=== PATIENT | male | born 1935 | race Caucasian/White ===

== ENCOUNTER 2017-07-14 14:47 | Inpatient (IN) ==
[2017-07-14] MEDS ORDERED: Piperacillin/Tazobactam 3.375 GM in Water for inj. (sterile) 20 ML IVP ONE (15:02)
[2017-07-14] MEDS ORDERED: methylPREDNISolone 125 MG/2 ML VIAL IVP ONE (15:02)
[2017-07-14] MEDS ORDERED: Ipratropium/Albuterol Neb 3 ML IH ONE (15:02)
[2017-07-14] MEDS ORDERED: Vancomycin 1,000 MG VIAL IVPB ONE (15:02)
--- NOTE | 2017-07-14 15:07 | Emergency Department Note ---
Disposition Clinical Impression: Acute exacerbation of chronic obstructive airways disease Disposition: Admitted As Inpatient Condition: Fair Referrals: Neftali Ortez MD [Primary Care Provider] - Forms: ED Satisfaction Letter Time of Disposition: 16:41 SOB HPI - General Chief Complaint: ED Shortness of Breath/Dyspnea Stated Complaint: [place] Time Seen by Provider: 07/14/17 14:58 Source: patient, family Limitations: no limitations Nursing Notes Reviewed: Yes Vital Signs Reviewed: Yes - History of Present Illness 81-year-old with a history COPD comes in with increasing shortness of breath and cough. Patient was seen here we can go diagnosed with pneumonia treated antibiotics ended yesterday and symptoms have come back worsening symptoms. Pt Subjective Complaint: shortness of breath, cough Onset (ago): [employer] Context: recent illness Severity: moderate Consistency/Duration: constant Improves with: nothing Worsens with: exertion Known history of: COPD Associated symptoms: Reports: cough Treatment prior to arrival: other (Anabiotic's) Cough present: Yes Cough Description: Involuntary Cough Frequency: Intermittent Sputum Amount: None - Related Data Home Medications Medication Instructions Recorded Confirmed Ipratropium/Albuterol Neb [Duoneb] 3 ml IH Q4HR PRN 07/14/17 07/14/17 NIFEdipine [Nifedipine ER] 60 mg PO DAILY 07/14/17 07/14/17 Allergies Allergy/AdvReac Type Severity Reaction Status Date / Time No Known Allergies Allergy Verified 07/14/17 14:52 All systems ED: reviewed and negative except as stated. Constitutional: Denies: fever, chills, weakness, weight change Eyes: Denies: eye pain, eye discharge, vision change ENT ED: Denies: ear pain, throat pain, dental pain, hearing loss, epistaxis, congestion, dysphagia Cardiovascular: Denies: chest pain, palpitations, dyspnea on exertion, edema, syncope Respiratory: Reports: cough, dyspnea, wheezes. Denies: hemoptysis, stridor Gastrointestinal: Denies: abdominal pain, nausea, vomiting, diarrhea, constipation, hematemesis, melena, hematochezia Genitourinary: Denies: urgency, dysuria, frequency, hematuria Musculoskeletal: Denies: back pain, neck pain, arthralgia, myalgia Integumentary: Denies: rash, abrasion, lesions Neurological: Denies: headache, weakness, numbness, paresthesias, confusion, abnormal gait, vertigo Psychiatric: Denies: anxiety, depression, suicidal thoughts, homicidal thoughts , auditory hallucinations, visual hallucinations Endocrine: Denies: fatigue Hematological/Lymphatic: Denies: easy bleeding, easy bruising Allergic/Immunologic: Denies: facial swelling, urticaria Past Medical History - Past Medical History Medical history: Reports: COPD, DVT, hypertension Surgical history: Reports: non-contributory Psychiatric history: Reports: no psych history - Social History Smoking Status: Current every day smoker Smokeless Tobacco Status: No Alcohol use: Reports: none Drug use: Reports: none Physical Exam - General Limitations: no limitations General appearance: alert, anxious - Head Head exam: atraumatic, normocephalic, normal inspection - Eye Eye exam: Present: normal appearance, PERRL, EOMI - ENT ENT exam: normal exam, normal oropharynx, mucous membranes moist - Neck Neck exam: Present: normal inspection, full ROM, trachea midline - Chest Chest inspection: Present: normal inspection, symmetric chest wall rise - Respiratory Respiratory exam: Present: normal lung sounds bilaterally - Cardiovascular Cardiovascular exam: Present: regular rate, normal rhythm, normal heart sounds - Abdominal Exam Abdominal exam: Present: soft, Non-Tender. Absent: tenderness, distention, guarding, rebound, rigidity - Extremities Exam Extremities exam: Present: normal inspection, full ROM. Absent: tenderness, pedal edema - Expanded Lower Extremity Exam Neurovascular/Tendon exam: Absent: motor deficit, sensory deficit, tendon deficit Gait: observed and normal - Back Exam Back exam: Present: normal inspection, full ROM. Absent: tenderness - Neurological Exam Neurological exam: Present: alert, oriented X3 - Psychiatric Psychiatric exam: Present: normal affect, normal mood - Skin Skin exam: Present: warm, dry, intact, normal color Course - Reevaluation(s) Reevaluation #1: 81-year-old who comes in with increasing shortness of breath with a history of COPD. Patient was diagnosed with pneumonia in the last couple weeks and thought it was getting worse. Workup here included a chest x-ray that was negative for an infiltrate. Patient appears to have an exacerbation COPD will admit for further evaluation and treatment. Time: 17:06 - Consultations Consultation #1: Discussed with Dr. Naqvi, admit Time: 17:03 Vital Signs Temperature 97.4 F L 07/14/17 14:53 Pulse Rate 87 07/14/17 14:53 Respiratory Rate 24 07/14/17 14:53 Blood Pressure 173/100 07/14/17 14:53 O2 Sat by Pulse Oximetry 93 07/14/17 14:53 Temperature 97.4 F L 07/14/17 14:53 Pulse Rate 90 07/14/17 16:04 Respiratory Rate 16 07/14/17 16:04 Blood Pressure 150/94 07/14/17 16:04 O2 Sat by Pulse Oximetry 92 07/14/17 16:04 Oxygen Delivery Oxygen Delivery Room Air Shortness of Breath/Dyspnea - Lab Data Lab results reviewed: Yes I reviewed the patient's lab results. Result diagrams: 07/14/17 15:10 07/14/17 15:10 Lab Results 07/14/17 07/14/17 07/14/17 Range/Units 15:10 15:10 15:10 WBC 6.9 (4.3-11.1) K/mcL RBC 6.57 H (4.19-5.50) M/mcL Hgb 20.2 H (12.9-16.9) g/dL Hct 62.8 H (37.5-50.1) % MCV 95.6 (83.0-100.0) fL MCH 30.7 (28.0-33.3) pg MCHC 32.2 (31.6-35.5) g/dL RDW 13.4 (11.5-14.5) % Plt Count 122 L (140-400) K/mcL MPV 11.5 (9.4-12.4) fL Immature Gran % 0.4 (0-4) % Seg Neutrophils % 75.1 % Lymphocytes % 11.7 % Monocytes % 12.4 % Eosinophils % 0.1 % Basophils % 0.3 % Neutrophils # 5.2 (1.6-8.9) K/mcL Lymphocytes # 0.8 (0.6-4.6) K/mcL Monocytes # 0.9 (0.0-1.3) K/mcL Eosinophils # 0.0 (0.0-0.6) K/mcL Basophils # 0.0 (0.0-0.2) K/mcL Sodium 132 L (136-145) mEq/L Potassium 4.1 (3.5-5.1) mEq/L Chloride 92 L (98-107) mEq/L Carbon Dioxide 31 H (23-29) mEq/L BUN 32 H (8-23) mg/dL Creatinine 1.24 (0.70-1.30) mg/dL Est GFR ( Amer) > 60 (> 60) Est GFR (Non-Af Amer) 56 L (> 60) BUN/Creatinine Ratio 26 (6-26) Glucose 100 (70-105) mg/dL Calculated Osmolality 281 (280-300) Calcium 8.9 (8.6-10.3) mg/dL Troponin I 0.03 (< 0.04) ng/mL B-Natriuretic Peptide (Less than 100) pg/mL 07/14/17 Range/Units 15:10 WBC (4.3-11.1) K/mcL RBC (4.19-5.50) M/mcL Hgb (12.9-16.9) g/dL Hct (37.5-50.1) % MCV (83.0-100.0) fL MCH (28.0-33.3) pg MCHC (31.6-35.5) g/dL RDW (11.5-14.5) % Plt Count (140-400) K/mcL MPV (9.4-12.4) fL Immature Gran % (0-4) % Seg Neutrophils % % Lymphocytes % % Monocytes % % Eosinophils % % Basophils % % Neutrophils # (1.6-8.9) K/mcL Lymphocytes # (0.6-4.6) K/mcL Monocytes # (0.0-1.3) K/mcL Eosinophils # (0.0-0.6) K/mcL Basophils # (0.0-0.2) K/mcL Sodium (136-145) mEq/L Potassium (3.5-5.1) mEq/L Chloride (98-107) mEq/L Carbon Dioxide (23-29) mEq/L BUN (8-23) mg/dL Creatinine (0.70-1.30) mg/dL Est GFR ( Amer) (> 60) Est GFR (Non-Af Amer) (> 60) BUN/Creatinine Ratio (6-26) Glucose (70-105) mg/dL Calculated Osmolality (280-300) Calcium (8.6-10.3) mg/dL Troponin I (< 0.04) ng/mL B-Natriuretic Peptide 118 H (Less than 100) pg/mL - Radiology Data Radiology results reviewed: Yes I reviewed the patient's radiology results. Chest X-Ray 07/14/17 15:03 IMPRESSION: 1. No acute cardiopulmonary disease. 2. Thoracic aortic aneurysm, which appears stable from prior imaging exams. D/ / Sreedhar Butler MD / Sreedhar Butler MD Interpreting Provider: Sreedhar Butler MD - EKG Data EKG attestation: Yes I reviewed and interpreted this EKG. EKG shows normal: Reports: sinus rhythm Rate: Reports: normal Rhythm: Reports: NSR, PAC's Interpretation: Reports: no acute changes
[2017-07-14] MEDS ORDERED: 0.9 % Sodium Chloride 250 ML ONE (15:19)
[2017-07-14 15:58] LABS: Basophils % 0.3 %; Eosinophils % 0.1 %; Hemoglobin 20.2 g/dL (12.9-16.9); Immature Granulocytes % 0.4 % (0-4); Lymphocytes # 0.8 K/mcL (0.6-4.6); Lymphocytes % 11.7 %; Mean Corpuscular HGB Conc 32.2 g/dL (31.6-35.5); Mean Corpuscular Hemoglobin 30.7 pg (28.0-33.3); Mean Corpuscular Volume 95.6 fL (83.0-100.0); Mean Platelet Volume 11.5 fL (9.4-12.4); Monocytes # 0.9 K/mcL (0.0-1.3); Monocytes % 12.4 %; Neutrophils # 5.2 K/mcL (1.6-8.9); Platelet Count 122 K/mcL (140-400); Red Blood Count 6.57 M/mcL (4.19-5.50); Red Cell Distribution Width 13.4 % (11.5-14.5); Segmented Neutrophils % 75.1 %
[2017-07-14 16:01] LABS: Hematocrit 62.8 % (37.5-50.1)
[2017-07-14 16:12] LABS: BUN/Creatinine Ratio 26 (6-26); Blood Urea Nitrogen 32 mg/dL (8-23); Calcium 8.9 mg/dL (8.6-10.3); Carbon Dioxide 31 mEq/L (23-29); Chloride 92 mEq/L (98-107); Glucose 100 mg/dL (70-105); Osmolality,Calculated 281 (280-300); Potassium 4.1 mEq/L (3.5-5.1); Sodium 132 mEq/L (136-145); eGFR For African Americans > 60 (> 60); eGFR For Non-African Americans 56 (> 60)
--- NOTE | 2017-07-14 17:29 | Internal Med History&Physical ---
Date of Encounter: 07/14/17 Time of Encounter: 17:26 Assessment and Plan (1) HTN (hypertension) Current visit: Yes Status: Chronic Chronic and uncontrolled will adjust home medication Qualifiers: Hypertension type: essential hypertension Qualified Code(s): I10 - Essential (primary) hypertension (2) Smoking Current visit: Yes Status: Chronic Chronic (3) Bronchitis Current visit: Yes Status: Acute Patient continued to smoke and cover mild thick sputum despite antibiotic we will place on IV Levaquin (4) Acute exacerbation of chronic obstructive airways disease Current visit: Yes Status: Acute Acute on chronic COPD exacerbation patient moves have poorly very likely has severe COPD does not follow with the pulmonology will place on IV steroids DuraNeb and Levaquin Internal Medicine - H&P: HPI Chief complaint: sob and productive cough Admitted From: Emergency Dept Plans for Post Hospital Care: Home History of present illness: Mr. Mcginnis is a 81 year old male Patient with history of COPD, DVT was on Coumadin that was stopped due to hemoptysis in the past, hypertension, smoking history and continues to smoke patient was seen in the emergency room about a week ago with Productive cough and shortness of breath chest x-ray showed pneumonia he was treated outpatient with antibiotic. The patient finished antibiotics yesterday but continued to cough productive of thick yellow sputum brought in by family to the emergency room concern that the Pneumonia Is Getting Worse chest x ray Does Not Show Pneumonia on Exam Patient Moves Air Poorly with Bilateral Decreased Breath Sounds Mild Respiratory Distress. Admitted for COPD Exacerbation and Bronchitis Treatment Past Med Surg Social Fam HX - Past Medical History Medical history: COPD, DVT, hypertension Psychiatric history: no psych history - Past Surgical History Surgical History: non-contributory - Social History Smoking Status: Current every day smoker Smokeless Tobacco Status: No Alcohol use: none Drug use: none Internal Medicine - H&P: Meds Ipratropium/Albuterol Neb [Duoneb] 3 ml IH Q4HR PRN 07/14/17 [History] NIFEdipine [Nifedipine ER] 60 mg PO DAILY 07/14/17 [History] 3 Allergy/AdvReac Type Severity Reaction Status Date / Time No Known Allergies Allergy Verified 07/14/17 14:52 All Systems PM: A 10-system review of systems was performed and is negative for pertinent findings except as documented above in the HPI. - Constitutional Constitutional: fatigue - EENT Eyes: no change in vision, no discharge, no pain, no photophobia Ears: no ear discharge, no ear pain, no tinnitus Nose, mouth and throat: no dysphagia, no nasal discharge, no neck pain, no sore throat - Cardiovascular Cardiovascular ROS IM: dyspnea, dyspnea on exertion - Respiratory Respiratory: cough, dyspnea, dyspnea on exertion, wheezing, no excessive phlegm production - Gastrointestinal Gastrointestinal: no abdominal pain, no diarrhea, no hematemesis, no hematochezia, no melena, no nausea, no vomiting - Musculoskeletal Musculoskeletal ROS IM: no numbness, no tingling - Integumentary Integumentary IM: no rash, no unusual bruising - Neurological Neurological ROS: no confusion, no convulsions, no focal weakness, no numbness, no tingling, no tremor(s) - Constitutional Vitals: Temp Pulse Resp BP Pulse Ox 97.4 F L 78 16 171/106 93 07/14/17 14:53 07/14/17 17:06 07/14/17 17:06 07/14/17 17:06 07/14/17 17:06 General appearance: Present: mild distress - Eye Eye exam: Present: PERRL, conjuntiva pink, sclera anicteric Pupils: Present: PERRL - Neck Neck exam general surgery: Present: supple, trachea midline. Absent: lymphadenopathy - Respiratory Respiratory exam: Present: prolonged expiratory phase, rhonchi, wheezes - Cardiovascular Cardiovascular exam: Present: RRR, +S1, +S2. Absent: diastolic murmur, gallop, rubs, systolic murmur - GI/Abdominal GI/Abdominal exam: Present: normal bowel sounds, soft, no peritoneal signs. Absent: distended, tenderness - Extremities Exam Extremities exam: Present: warm, radial pulses palpable and symmetrical. Absent : calf tenderness, cyanotic, pedal edema Internal Med - H&P Results - Labs CBC & Chem 7: 07/14/17 15:10 07/14/17 15:10 Labs: Short CBC 07/14/17 Range/Units 15:10 WBC 6.9 (4.3-11.1) K/mcL Hgb 20.2 H (12.9-16.9) g/dL Hct 62.8 H (37.5-50.1) % Plt Count 122 L (140-400) K/mcL Neutrophils # 5.2 (1.6-8.9) K/mcL BMP 07/14/17 15:10 Sodium 132 L Potassium 4.1 Chloride 92 L Carbon Dioxide 31 H BUN 32 H Creatinine 1.24 Glucose 100 Calcium 8.9 Cardiac Enzymes 07/14/17 Range/Units 15:10 Troponin I 0.03 (< 0.04) ng/mL - Impressions ITS Impressions Chest X-Ray 07/14/17 15:03 IMPRESSION: 1. No acute cardiopulmonary disease. 2. Thoracic aortic aneurysm, which appears stable from prior imaging exams. D/ / Sreedhar Butler MD / Sreedhar Butler MD Interpreting Provider: Sreedhar Butler MD
[2017-07-14] MEDS ORDERED: Naloxone 0.4 MG/ML INJ IVP PRN (17:40)
[2017-07-14] MEDS ORDERED: Ondansetron 4 MG/2 ML VIAL IVP PRN (17:40)
[2017-07-14] MEDS ORDERED: Mag Hydrox/Al Hydrox/Simeth 30 ML UDC PO PRN (17:40)
[2017-07-14] MEDS ORDERED: Ipratropium/Albuterol Neb 3 ML IH PRN (17:48)
[2017-07-14 18:00] LABS: ABG Base Excess 1 mEq/L (-2 to 3); ABG HCO3 27 mEq/L (21-27); ABG Oxygen Saturation 96 % (95-98); ABG PCO2 47 mmHg (35-45); ABG PH 7.37 pH Units (7.32-7.45); ABG PO2 85 mmHg (85-104); ABG TCO2 29 mEq/L (20-26)
[2017-07-14] MEDS ORDERED: Levofloxacin 500 MG/100 ML 500 MG/100 ML BAG IVPB ONE (18:00)
[2017-07-14] MEDS: Ipratropium/Albuterol Neb 3 ML IH SCH ×2 (19:39→23:41)
[2017-07-14] MEDS: methylPREDNISolone 125 MG/2 ML VIAL IVP SCH (23:11)
[2017-07-15 01:00] LABS: Albumin 3.1 g/dL (3.5-5.7); Albumin/Globulin Ratio 1.1 (1.1-2.2); Bilirubin,Total 1.1 mg/dL (0.3-1.0); Calcium 8.3 mg/dL (8.6-10.3); Globulin 2.8 g/dL (2.4-3.5); Magnesium 2.3 mg/dL (1.6-2.6); Potassium 3.9 mEq/L (3.5-5.1); Total Protein 5.9 g/dL (6.4-8.9)
[2017-07-15] MEDS: Ipratropium/Albuterol Neb 3 ML IH SCH ×6 (03:40→23:39)
[2017-07-15] MEDS: *HR* Enoxaparin 40 MG/0.4 ML SYRINGE SQ SCH (05:40)
[2017-07-15] MEDS: amLODIPine 5 MG TABLET PO SCH (09:14)
[2017-07-15] MEDS: methylPREDNISolone 125 MG/2 ML VIAL IVP SCH ×3 (09:14→23:22)
[2017-07-15] MEDS: Nicotine 21 MG PATCH.TD24 TD SCH (09:16)
--- NOTE | 2017-07-15 09:25 | Pulmonology Consult Note ---
Date of Encounter: 07/15/17 Time of Encounter: 09:25 Assessment and Plan (1) Acute on chronic respiratory failure with hypoxemia Current Visit: Yes Status: Acute In Conclusion this is an 81-year-old gentleman with a past medical history of extensive tobacco abuse who presented with worsening dyspnea and concern for "pneumonia". He was recently evaluated in the emergency department approximately one month ago CT scan of that time was notable for a thin-walled lucency which appear to be more like a central nodule. 5 multiple rounds of antibiotics patient has felt like he has a persistent respiratory infection and is quite dyspneic on today's examination Overall the patient appears to have severe emphysema both clinically and radiographically (extensive structural lung disease from emphysema which generally has been neglected. I reviewed his last CT and compared it with today 's exam and actually lucency in the right lower lobe has resolved completely I was concerned from last CT that this may actually represent chronic cavitary aspergillosis or at least the possibility of aspergilloma given structural lung disease however this has really resolved so is none in the differential at this time I did send off fungal serologies to evaluate this prior to the repeated CT scan as I was unaware this was going to be ordered when I made my medical decision-making. Appears patient is having acute bronchitis with AECOPD without clear evidence of pneumonia and given he does not have an elevation in his white count no fever etc. as such I think antimicrobial coverage with respiratory floraquinolone or azithromycin should be adequate at this time. 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 related to this Digital bronchodilators in the form of DuoNeb every 4 hours with supplemental albuterol treatments via nebulizer every hour as needed or more frequently if increased work of breathing. He may also benefit from BiPAP to ease work of breathing however given what I perceive this as severe case of hyperinflation this is not always beneficial. 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 He would benefit from an echocardiogram because of elevated BNP on admission and high risk of heart failure with preserved ejection fraction he is also at risk for coronary artery disease which would need outpatient evaluation. Echocardiogram will also allow us to screen for pulmonary hypertension which clearly could have prognostic implications. Continue DVT prophylaxis per routine inpatient accommodations Pulmonary would continue to follow (2) Acute exacerbation of chronic obstructive airways disease Current Visit: Yes Status: Acute (3) Polycythemia Current Visit: Yes Status: Acute (4) Elevated brain natriuretic peptide (BNP) level Current Visit: Yes Status: Acute (5) Bronchitis Current Visit: Yes Status: Acute (6) Nicotine dependence Current Visit: Yes Status: Acute Qualifiers: Qualified Code(s): F17.200 - Nicotine dependence, unspecified, uncomplicated History of Present Illness Consult date: 07/15/17 Requesting physician: Zamzam Romano Reason for consult: COPD Chief complaint: Difficulty in breathing History of present illness: This 81-year-old child was admitted for dyspnea that has been progressive and he has been complaining of "pneumonia" despite multiple rounds of antibiotics since last month when he initially presented to the ED and was noted to have a lung nodule in the right lower lobe that was concerning for an infectious process or less likely neoplastic he was actually having hemoptysis that time but refused to stay in the hospital was discharged on a round of antimicrobial and said his hip to subsequent rounds without improvement in his dyspnea. He is a pack-a-day smoker for at least 65 years and has also had exposure to industrial pollutants at the local [employer]. He denies weight loss or hemoptysis on this admission he does not have any recent sick contacts and has denied any exotic pets exposure such as birds etc. No family history of lung malignancy and he does not have malignancy in the past. He does not take any inhalers and has not been prescribed supplemental oxygen does not follow regularly with a physician he was receiving warfarin for stroke prevention because a history of underlying atrial fibrillation however this has been stopped recently per the patient after he had the episode of the hemoptysis. Pulmonary was consulted to evaluate the patient because of presumed recurrent pneumonia and dyspnea Past Med Surg Social Fam HX - Past Medical History Medical history: COPD, DVT, hypertension Psychiatric history: no psych history - Past Surgical History Surgical History: non-contributory - Social History Smoking Status: Current every day smoker Packs per day: 0 Smokeless Tobacco Status: No Alcohol use: none Drug use: none - Family History Mother Living Status: Age at : 95 Hx Family Cardiac Disorders: No Hx Family Respiratory Disorders: No Hx Family Cancer: No Hx Family GI Disorders: No Hx Family Genitourinary Disorders: No Hx Family Endocrine Disorder: No Hx Family Musculoskeletal Disorders: No Hx Family Neuromuscular Disorders: No Hx Family Neurologic Disorders: No Hx Family HEENT Disorders: No Hx Family Autoimmune Disorders: No Hx Family Reproductive Disorders: No Hx Family Psychosocial Disorders: No Hx Family Medical Disorders: No Medications and Allergies Ipratropium/Albuterol Neb [Duoneb] 3 ml IH Q4HR PRN 07/14/17 [History] NIFEdipine [Nifedipine ER] 60 mg PO DAILY 07/14/17 [History] 3 Allergy/AdvReac Type Severity Reaction Status Date / Time No Known Allergies Allergy Verified 07/14/17 14:52 All Systems: A 10-system review of systems was performed and is negative for pertinent findings except as documented above in the HPI. Physical Examination Vital Signs: Vital Signs, Last 4 Hours Temp Pulse Resp BP Pulse Ox 07/15/17 07:12 97.8 F 85 18 156/92 91 General appearance: appears uncomfortable Eyes: nonicteric ENT: oropharynx moist Neck: supple Effort: very labored Auscultation: bilateral: diminished breath sounds Cardiovascular: regular rate and rhythm Gastrointestinal: normoactive bowel sounds, soft, non-tender Integumentary: normal Extremities: no cyanosis, no edema, no clubbing normal mental status, non-focal exam anxious Results - Laboratory Findings CBC and BMP: 07/14/17 15:10 07/15/17 00:32 ABG ABG pH 7.37 pH Units (7.32-7.45) 07/14/17 17:55 ABG pCO2 47 mmHg (35-45) H 07/14/17 17:55 ABG pO2 85 mmHg (85-104) 07/14/17 17:55 ABG O2 Saturation 96 % (95-98) 07/14/17 17:55 Abnormal lab findings: Abnormal lab results RBC 6.57 M/mcL (4.19-5.50) H 07/14/17 15:10 Hgb 20.2 g/dL (12.9-16.9) H 07/14/17 15:10 Hct 62.8 % (37.5-50.1) H 07/14/17 15:10 Plt Count 122 K/mcL (140-400) L 07/14/17 15:10 ABG pCO2 47 mmHg (35-45) H 07/14/17 17:55 ABG Total CO2 29 mEq/L (20-26) H 07/14/17 17:55 Sodium 132 mEq/L (136-145) L 07/15/17 00:32 Chloride 95 mEq/L (98-107) L 07/15/17 00:32 BUN 36 mg/dL (8-23) H 07/15/17 00:32 Creatinine 1.42 mg/dL (0.70-1.30) H 07/15/17 00:32 Est GFR ( Amer) 58 (> 60) L 07/15/17 00:32 Est GFR (Non-Af Amer) 48 (> 60) L 07/15/17 00:32 Glucose 211 mg/dL (70-105) H 07/15/17 00:32 Calcium 8.3 mg/dL (8.6-10.3) L 07/15/17 00:32 Total Bilirubin 1.1 mg/dL (0.3-1.0) H 07/15/17 00:32 AST 50 Units/L (13-39) H 07/15/17 00:32 Serum Total Protein 5.9 g/dL (6.4-8.9) L 07/15/17 00:32 Albumin 3.1 g/dL (3.5-5.7) L 07/15/17 00:32 - Diagnostic Findings Chest x-ray: report reviewed, image reviewed CT scan - chest: report reviewed, image reviewed - Clinical Findings Intake & Output: Intake & Output 07/14/17 07/15/17 07/15/17 23:59 07:59 15:59 Weight 98.339 kg Consult Discharge Plan - Plan Referrals: Ortez,Neftali Garcia MD [Primary Care Provider] -
--- NOTE | 2017-07-15 12:07 | Internal Med Progress Note ---
Date of Encounter: 07/15/17 Time of Encounter: 12:05 - Assessment and plan (1) Acute exacerbation of chronic obstructive airways disease Current Visit: Yes Status: Acute Assessment and plan: Patient has a history of COPD and continues to smoke. He has duo nebs every 4 hours at home He and his son are in the room stated he was treated for pneumonia in June he just completed his antibiotics and felt worse He did not complete his steroid taper per the son CRP 34, lactic acid 0.9 Pulmonary consult, appreciate the help Continue steroids Continue duo nebs and had every hour albuterol for breakthrough wheezing Continue IV Levaquin Reviewed CT of the chest completed AFB smear , Aspergillus galactomannan Ag, sputum culture, Fungal AV, QuantiFERON -TB, Legionella antigen Legionella antigen, mycoplasma pneumoniae IgG IgM, respiratory virus panel, Respiratory infectious panel, S pneumoniae antigen are ordered O2 to maintain sats greater than 89% (2) Acute kidney injury Current Visit: Yes Status: Acute Assessment and plan: acute on chronic Monitor labs Creatinine 1.42 on admission 1.24 - 1.28 was baseline avoid nephrotoxic agents (3) HTN (hypertension) Current Visit: Yes Status: Chronic Assessment and plan: Blood pressure elevated and is chronic. Home medications adjusted Qualifiers: Hypertension type: essential hypertension Qualified Code(s): I10 - Essential (primary) hypertension (4) Smoking Current Visit: Yes Status: Chronic Assessment and plan: Currently smoking a pack a day, discussed cessation education, he had initially refused the NicoDerm patch but did agree to have it put on. (5) DVT prophylaxis Current Visit: Yes Status: Acute Assessment and plan: Continue Lovenox, patients INR is 1.2 with a PT of 12.8 on 06/09/17 This patient has a history of DVT (6) Bronchitis Current Visit: Yes Status: Acute Assessment and plan: Patient was seen by pulmonology who evaluated him and feels he does not have pneumonia Continue Levaquin Await blood and sputum cultures Continue respiratory treatments (7) Influenza A Current Visit: Yes Status: Acute Assessment and plan: Positive for influenza A on the RIP dose Tamiflu renally adjusted - Subjective Interval history: Patient is lying in bed with his preacher and signs of bedside. He is short of breath even at rest. He denies any chest pain. He has not felt well for quite some time. He denies any fevers or chills at this time no abdominal pain or changes in bowel or bladder. Generalized weakness and feeling of malaise - Constitutional Vitals: Temp Pulse Resp BP Pulse Ox 98.0 F 95 20 136/79 94 07/15/17 11:22 07/15/17 11:22 07/15/17 11:22 07/15/17 11:22 07/15/17 11:22 General appearance: Present: cooperative, mild distress, pleasant, answers questions appropriately - Head Head exam: Present: atraumatic, normocephalic - Eye Eye exam: Present: PERRL, conjuntiva pink, sclera anicteric Pupils: Present: PERRL - Neck Neck exam general surgery: Present: supple, trachea midline. Absent: lymphadenopathy - Respiratory Respiratory exam: Present: decreased breath sounds, prolonged expiratory phase, wheezes. Absent: accessory muscle use, rales, rhonchi Additional comments: Mild accessory muscle use, lips and mucous membranes are dusky - Cardiovascular Cardiovascular exam: Present: RRR, +S1, +S2. Absent: diastolic murmur, gallop, rubs, systolic murmur - GI/Abdominal GI/Abdominal exam: Present: normal bowel sounds, soft, no peritoneal signs. Absent: distended, tenderness - Extremities Exam Extremities exam: Present: warm, radial pulses palpable and symmetrical. Absent : calf tenderness, cyanotic, pedal edema - Neurological Exam Neurological exam: Present: alert, CN II-XII intact, oriented X3, no focal deficits. Absent: pronater drift, facial droop, speech deficit - Skin Skin exam: Present: dry, intact, warm Internal Medicine: Result - Labs CBC & Chem 7: 07/14/17 15:10 07/15/17 00:32 Labs: BMP 07/15/17 00:32 Sodium 132 L Potassium 3.9 Chloride 95 L Carbon Dioxide 29 BUN 36 H Creatinine 1.42 H Glucose 211 H Calcium 8.3 L Cardiac Enzymes 07/15/17 07/15/17 Range/Units 00:32 05:50 Troponin I < 0.03 < 0.03 (< 0.04) ng/mL Liver Function 07/15/17 Range/Units 00:32 Total Bilirubin 1.1 H (0.3-1.0) mg/dL AST 50 H (13-39) Units/L ALT 34 (7-52) Units/L Alkaline Phosphatase 79 (34-104) Units/L Albumin 3.1 L (3.5-5.7) g/dL - ABG Interpretation ABG results: ABG ABG pH 7.37 pH Units (7.32-7.45) 07/14/17 17:55 ABG pCO2 47 mmHg (35-45) H 07/14/17 17:55 ABG pO2 85 mmHg (85-104) 07/14/17 17:55 ABG O2 Saturation 96 % (95-98) 07/14/17 17:55 - Impressions Impressions Chest CT 07/15/17 09:23 IMPRESSION: 1. Motion artifact complicates assessment. The patient has scattered right-sided pulmonary infiltrates which are mild, bronchiectasis in both lower lobes and in the right middle lobe, and a soft tissue density abutting the left hemidiaphragm of 1.3 cm. 2. No mediastinal or hilar adenopathy. 3. 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 RECOMMENDATIONS: Managing Abdominal Aortic Aneurysms 3.0-3.4 cm: Every 3 years. 3.5-3.9 cm: Every 1 year. 4.0-4.4 cm: Every 1 year. Recommend vascular consultation. 4.5-5.4 cm: Every 6 months. Recommend vascular consultation. Greater than or equal to 5.5 cm: Referral to vascular surgeon. *For abdominal aortas with maximum diameter of 2.6-2.9 cm meeting criteria for AAA (>50% of proximal normal segment). Reference: J Vasc Surg. 2008;50(4 Suppl):S2-49 D/ / 07/15/2017 12:00:01 Awa Barrera MD / mari Interpreting Provider: Awa Barrera MD Consult Discharge Plan - Plan Referrals: Neftali Ortez MD [Primary Care Provider] -
[2017-07-15 13:12] LABS: Prothrombin Time 11.2 Seconds (9.4-12.1)
[2017-07-15 13:14] LABS: Adenovirus Not Detected (Not Detect); Bordetella Pertussis Not Detected (Not Detect); Chlamydophila pneumoniae Not Detected (Not Detect); Coronavirus 229E Not Detected (Not Detect); Coronavirus HKU1 Not Detected (Not Detect); Coronavirus NL63 Not Detected (Not Detect); Coronavirus OC43 Not Detected (Not Detect); Human Metapneumovirus Not Detected (Not Detect); Human Rhinovirus/Enterovirus Not Detected (Not Detect); Influenza A Subtype 2009 H1 Not Detected (Not Detect); Influenza A Untypeable Not Detected (Not Detect); Influenza B Not Detected (Not Detect); Mycoplasma pneumoniae Not Detected (Not Detect); Parainfluenza Virus 1 Not Detected (Not Detect); Parainfluenza Virus 2 Not Detected (Not Detect); Parainfluenza Virus 3 Not Detected (Not Detect); Parainfluenza Virus 4 Not Detected (Not Detect); Respiratory Syncytial Virus Not Detected (Not Detect)
[2017-07-15] MEDS: Levofloxacin 250 MG/50 ML 250 MG/50 ML BAG IVPB SCH (17:10)
[2017-07-15] MEDS ORDERED: Albuterol 2.5 MG/3 ML NEBULIZER IH PRN (17:44)
[2017-07-15] MEDS: Oseltamivir Phosphate 30 MG CAPSULE PO SCH (18:55)
[2017-07-15] MEDS: Melatonin 3 MG TABLET PO PRN (23:22)
[2017-07-16] MEDS: Ipratropium/Albuterol Neb 3 ML IH SCH ×6 (03:34→23:19)
[2017-07-16] MEDS: *HR* Enoxaparin 40 MG/0.4 ML SYRINGE SQ SCH (05:26)
[2017-07-16 06:39] LABS: Basophils % 0.2 %; Hematocrit 55.1 % (37.5-50.1); Hemoglobin 17.5 g/dL (12.9-16.9); Immature Granulocytes % 0.5 % (0-4); Lymphocytes # 0.7 K/mcL (0.6-4.6); Lymphocytes % 3.4 %; Mean Corpuscular HGB Conc 31.8 g/dL (31.6-35.5); Mean Corpuscular Hemoglobin 30.4 pg (28.0-33.3); Mean Corpuscular Volume 95.7 fL (83.0-100.0); Mean Platelet Volume 11.6 fL (9.4-12.4); Monocytes # 0.7 K/mcL (0.0-1.3); Monocytes % 3.5 %; Neutrophils # 18.1 K/mcL (1.6-8.9); Platelet Count 139 K/mcL (140-400); Red Blood Count 5.76 M/mcL (4.19-5.50); Red Cell Distribution Width 13.4 % (11.5-14.5); Segmented Neutrophils % 92.4 %
[2017-07-16 06:58] LABS: Calcium 9.1 mg/dL (8.6-10.3); Potassium 4.4 mEq/L (3.5-5.1)
[2017-07-16] MEDS: 0.9 % Sodium Chloride 1,000 ML IVC SCH ×2 (09:06→23:45)
[2017-07-16] MEDS: methylPREDNISolone 125 MG/2 ML VIAL IVP SCH ×3 (09:06→23:44)
[2017-07-16] MEDS: amLODIPine 5 MG TABLET PO SCH (09:06)
[2017-07-16] MEDS: Nicotine 21 MG PATCH.TD24 TD SCH (09:06)
--- NOTE | 2017-07-16 14:49 | Pulmonology Progress Note ---
Date of Encounter: 07/16/17 Time of Encounter: 14:42 Assessment and Plan (1) Acute on chronic respiratory failure with hypoxemia Current Visit: Yes Status: Acute 81-year-old gentleman with advanced emphysema that generally has been neglected with regard to treatment. He presented with worsening dyspnea and tested positive for influenza a for which antiviral has been started and should be continued for a total of 5 days He is also having a COPD exacerbation secondary to this for which IV steroids have been administered and can likely be transitioned to by mouth formulation over the next 24-48 hours he is also receiving schedule bronchodilators and overall appears to be much more comfortable when I saw him before on the previous day he should have continued supplemental oxygen to keep saturation around 89-92% Patient had an honest discussion with me and explained that at time of discharge he does not intend to follow up with a physician regarding his medical conditions understanding that this is likely to cut his life short and that process may be very rapid. He explained that he enjoys his quality of life at this time and does not want that to be compromised by onerous medical treatments. Patient does not appear depressed and is clearly competent to make this decision. I explained to him that with knowledge of this he should formal create a living will so that in the event of cardiopulmonary arrest his wishes are known that he would not want aggressive measures undertaken I also discussed this with the advanced practice hospitalist who is overseeing this patient's care and would benefit from a formal psychiatric social worker supervisor consult to make this official No further recommendations from pulmonary standpoint we will sign off thank you for allowing us to participate in the care of this patient please call with any questions (2) Acute exacerbation of chronic obstructive airways disease Current Visit: Yes Status: Acute (3) Polycythemia Current Visit: Yes Status: Acute (4) Elevated brain natriuretic peptide (BNP) level Current Visit: Yes Status: Acute (5) Bronchitis Current Visit: Yes Status: Acute (6) Nicotine dependence Current Visit: Yes Status: Acute Qualifiers: Qualified Code(s): F17.200 - Nicotine dependence, unspecified, uncomplicated (7) Influenza A Current Visit: Yes Status: Acute Subjective Principal diagnosis: Influenza Interval history: Breathing is a little bit better today viral panel positive for influenza A and his been started on therapy Objective PUL Vital signs: Last Vital Signs Temp 97.6 F 07/16/17 12:49 Pulse 97 07/16/17 12:49 Resp 20 07/16/17 12:49 BP 119/66 07/16/17 12:49 Pulse Ox 93 07/16/17 12:49 General appearance: no acute distress Effort: very labored Auscultation: bilateral: diminished breath sounds Cardiovascular: regular rate and rhythm Extremities: no edema, no clubbing, cyanosis normal mental status, non-focal exam mood appropriate Results - Laboratory Findings CBC and BMP: 07/16/17 05:40 07/16/17 05:40 ABG ABG pH 7.37 pH Units (7.32-7.45) 07/14/17 17:55 ABG pCO2 47 mmHg (35-45) H 07/14/17 17:55 ABG pO2 85 mmHg (85-104) 07/14/17 17:55 ABG O2 Saturation 96 % (95-98) 07/14/17 17:55 PT/INR, D-dimer PT 11.2 Seconds (9.4-12.1) 07/15/17 12:38 Abnormal lab findings: Abnormal lab results WBC 19.6 K/mcL (4.3-11.1) H D 07/16/17 05:40 RBC 5.76 M/mcL (4.19-5.50) H 07/16/17 05:40 Hgb 17.5 g/dL (12.9-16.9) H D 07/16/17 05:40 Hct 55.1 % (37.5-50.1) H 07/16/17 05:40 Plt Count 139 K/mcL (140-400) L 07/16/17 05:40 Neutrophils # 18.1 K/mcL (1.6-8.9) H 07/16/17 05:40 ABG pCO2 47 mmHg (35-45) H 07/14/17 17:55 ABG Total CO2 29 mEq/L (20-26) H 07/14/17 17:55 Carbon Dioxide 31 mEq/L (23-29) H 07/16/17 05:40 BUN 45 mg/dL (8-23) H 07/16/17 05:40 Creatinine 1.61 mg/dL (0.70-1.30) H 07/16/17 05:40 Est GFR ( Amer) 50 (> 60) L 07/16/17 05:40 Est GFR (Non-Af Amer) 41 (> 60) L 07/16/17 05:40 BUN/Creatinine Ratio 28 (6-26) H 07/16/17 05:40 Glucose 164 mg/dL (70-105) H 07/16/17 05:40 Calculated Osmolality 303 (280-300) H 07/16/17 05:40 Total Bilirubin 1.1 mg/dL (0.3-1.0) H 07/15/17 00:32 AST 50 Units/L (13-39) H 07/15/17 00:32 Serum Total Protein 5.9 g/dL (6.4-8.9) L 07/15/17 00:32 Albumin 3.1 g/dL (3.5-5.7) L 07/15/17 00:32 Influenza A (H3) PCR DETECTED (Not Detect) A 07/15/17 11:05 - Microbiology Findings Microbiology Findings: Microbiology, Last 48 Hours 07/16/17 05:00 Legionella Antigen - Final Urine,Clean Catch Streptococcus pneumoniae Antigen (M - Final - Diagnostic Findings Chest x-ray: report reviewed, image reviewed CT scan - chest: report reviewed, image reviewed - Clinical Findings Intake & Output: Intake & Output 07/15/17 07/16/17 07/16/17 23:59 07:59 15:59 Intake Total 300 / 300 Balance 300 / 300 Weight 72.9 kg Consult Discharge Plan - Plan Referrals: Pérez,Neftali Garcia MD [Primary Care Provider] -
--- NOTE | 2017-07-16 16:29 | Internal Med Progress Note ---
Date of Encounter: 07/16/17 Time of Encounter: 16:26 - Assessment and plan (1) Acute exacerbation of chronic obstructive airways disease Current Visit: Yes Status: Acute Assessment and plan: Patient has a history of COPD and continues to smoke. He does not plan on stopping He has duo nebs every 4 hours at home He stated he was treated for pneumonia in June he just completed his antibiotics and felt worse so had presented back to the emergency room He did not complete his steroid taper per his son CRP 34, lactic acid 0.9 Pulmonary consult, appreciate the help Continue steroids and will switch to prednisone taper tomorrow Continue duo nebs and every hour albuterol for breakthrough wheezing Continue IV Levaquin Reviewed CT of the chest AFB smear , Aspergillus galactomannan Ag, sputum culture, Fungal AV, QuantiFERON -TB, Legionella antigen Legionella antigen, mycoplasma pneumoniae IgG IgM, respiratory virus panel, Respiratory infectious panel, S pneumoniae antigen are ordered O2 to maintain sats greater than 89%, will need home O2 evaluation (2) Acute kidney injury Current Visit: Yes Status: Acute Assessment and plan: acute on chronic Monitor labs Creatinine 1.42 on admission 1.24 - 1.28 was baseline, now 1.61 avoid nephrotoxic agents 24 hours of gentle hydration (3) HTN (hypertension) Current Visit: Yes Status: Chronic Assessment and plan: Blood pressure elevated and is chronic. Home medications as adjusted Qualifiers: Hypertension type: essential hypertension Qualified Code(s): I10 - Essential (primary) hypertension (4) Smoking Current Visit: Yes Status: Chronic Assessment and plan: Currently smoking a pack a day, discussed cessation education, he had initially refused the NicoDerm patch but did agree to the therapy, states he is not going to quit smoking (5) DVT prophylaxis Current Visit: Yes Status: Acute Assessment and plan: Continue Lovenox, patients INR is 1.2 with a PT of 12.8 on 06/09/17 patient has a history of DVT (6) Bronchitis Current Visit: Yes Status: Acute Assessment and plan: Patient was seen by pulmonology who evaluated him and feels he does not have pneumonia Continue Levaquin to complete course Preliminary blood cultures no growth 2 sets Continue respiratory treatments (7) Influenza A Current Visit: Yes Status: Acute Assessment and plan: Positive for influenza A on the RIP dose Tamiflu renally adjusted day 2 of 5 day course - Subjective Interval history: Patient is lying in bed and looks much better than yesterday. He states he feels better with improved breathing. He still remains on oxygen at 3 L nasal cannula with no home oxygen.. Explained that the pulmonary doctor had said that he did not want to pursue aggressive treatment or procedures. We had a discussion regarding CODE STATUS and he stated he still wanted to be a full code. He would want CPR and intubation. I would disease health explaining what that could mean in his case with his severe lung disease. He states he still wanted everything done and his son could decide if to take him off after it happened. He does not want any invasive procedures and does not really want to stop smoking or have home oxygen. - Constitutional Vitals: Temp Pulse Resp BP Pulse Ox 97.7 F 89 20 116/66 93 07/16/17 15:24 07/16/17 15:24 07/16/17 15:59 07/16/17 15:24 07/16/17 15:59 General appearance: Present: cooperative, mild distress, A&O X 3, pleasant, answers questions appropriately - Head Head exam: Present: atraumatic, normocephalic - Eye Eye exam: Present: PERRL, conjuntiva pink, sclera anicteric Pupils: Present: PERRL - Neck Neck exam general surgery: Present: supple, trachea midline. Absent: lymphadenopathy - Respiratory Respiratory exam: Present: decreased breath sounds, prolonged expiratory phase, wheezes. Absent: accessory muscle use, rales, rhonchi Additional comments: No sensory muscle use at rest today but remains very decreased with fine wheezes. He is moving more air than yesterday. He remains on 3 L. Is mucous membranes are chronically dusky. - Cardiovascular Cardiovascular exam: Present: RRR, +S1, +S2. Absent: diastolic murmur, gallop, rubs, systolic murmur - GI/Abdominal GI/Abdominal exam: Present: normal bowel sounds, soft, no peritoneal signs. Absent: distended, tenderness - Extremities Exam Extremities exam: Present: warm, radial pulses palpable and symmetrical. Absent : calf tenderness, cyanotic, pedal edema - Neurological Exam Neurological exam: Present: alert, CN II-XII intact, oriented X3, no focal deficits. Absent: pronater drift, facial droop, speech deficit - Skin Skin exam: Present: dry, intact, warm Internal Medicine: Result - Labs CBC & Chem 7: 07/16/17 05:40 07/16/17 05:40 Labs: Short CBC 07/16/17 Range/Units 05:40 WBC 19.6 H D (4.3-11.1) K/mcL Hgb 17.5 H D (12.9-16.9) g/dL Hct 55.1 H (37.5-50.1) % Plt Count 139 L (140-400) K/mcL Neutrophils # 18.1 H (1.6-8.9) K/mcL BMP 07/16/17 05:40 Sodium 139 Potassium 4.4 Chloride 98 Carbon Dioxide 31 H BUN 45 H Creatinine 1.61 H Glucose 164 H Calcium 9.1 - ABG Interpretation ABG results: ABG ABG pH 7.37 pH Units (7.32-7.45) 07/14/17 17:55 ABG pCO2 47 mmHg (35-45) H 07/14/17 17:55 ABG pO2 85 mmHg (85-104) 07/14/17 17:55 ABG O2 Saturation 96 % (95-98) 07/14/17 17:55 PT/INR, D-dimer PT 11.2 Seconds (9.4-12.1) 07/15/17 12:38 - Impressions Impressions Chest CT 07/15/17 09:23 IMPRESSION: 1. Motion artifact complicates assessment. The patient has scattered right-sided pulmonary infiltrates which are mild, bronchiectasis in both lower lobes and in the right middle lobe, and a soft tissue density abutting the left hemidiaphragm of 1.3 cm. 2. No mediastinal or hilar adenopathy. 3. 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 RECOMMENDATIONS: PET CT scanning can be employed to assess the soft tissue density abutting the left hemidiaphragm of 1.3 cm. The Fleischner society pulmonary nodule recommendations are usually for follow-up and management of pulmonary nodules smaller than 8 mm detected incidentally on non-screening CT. Nodule size greater than 8 mm either low or high risk patients follow-up CTs at around 3, 9, and [address], PET, and/or biopsy Note: newly detected indeterminate nodule in persons 35 years of age or older. low risk patients - minimal or absent history of smoking and or other known risk factors high risk patients - history of smoking or of other known risk factors Based on current guidelines*, a follow-up unenhanced low-dose CT can be obtained at clinical discretion. *Esdras H, Barak JM, Jono G, Cipriano CJ, Maurice JR, Prakash DP, et al. Guidelines for Management of Small Pulmonary Nodules Detected on CT Scans: A Statement from the Fleischner Society. Radiology 2005;237:395-400. ####################################################### Managing Abdominal Aortic Aneurysms 3.0-3.4 cm: Every 3 years. 3.5-3.9 cm: Every 1 year. 4.0-4.4 cm: Every 1 year. Recommend vascular consultation. 4.5-5.4 cm: Every 6 months. Recommend vascular consultation. Greater than or equal to 5.5 cm: Referral to vascular surgeon. *For abdominal aortas with maximum diameter of 2.6-2.9 cm meeting criteria for AAA (>50% of proximal normal segment). Reference: J Vasc Surg. 2008;50(4 Suppl):S2-49 D/ / 07/15/2017 12:00:01 Awa Barrera MD / mari Interpreting Provider: Awa Barrera MD Echocardiogram 07/15/17 17:42 Impressions: LVEF 50-55%. Mild concentric left ventricular hypertrophy. Mild left ventricular diastolic dysfunction. The aortic root is moderately dilated. The aortic root is 4.5cm. No significant valvular dysfunction idenitified but secondary to limited windows, gradients maybe underestimated Findings: Right Ventricle * Normal right ventricular structure and function. Left Atrium * Normal left atrial size. Right Atrium * Normal right atrial size. Aortic Valve * Aortic valve not well visualized. * No aortic regurgitation. * No aortic stenosis. Mitral Valve * Normal mitral valve structure and function. * Mitral valve not well visualized. Interatrial Septum * No evidence of PFO by color Doppler. Pericardium * The pericardium appears normal. Study Quality * Technically sub-optimal due to clinical status. ECG Findings * Sinus tachycardia. Left Ventricle * Mild concentric left ventricular hypertrophy. * LVEF 50-55%. * Mild left ventricular diastolic dysfunction. Aorta * The aortic root is moderately dilated. * The aortic root is 4.5cm cm. Tricuspid Valve * Trace tricuspid regurgitation. * No tricuspid stenosis. * Estimated RVSP is 29 mmHg. * No pulmonary hypertension. * Tricuspid valve not well visualized. IVC * Normal IVC dimensions and inspiratory collapse. Pulmonic Valve * Pulmonic valve not well visualized. Consult Discharge Plan - Plan Referrals: Neftali Ortez MD [Primary Care Provider] -
[2017-07-16] MEDS: Oseltamivir Phosphate 30 MG CAPSULE PO SCH (17:08)
[2017-07-16] MEDS: Levofloxacin 250 MG/50 ML 250 MG/50 ML BAG IVPB SCH (17:08)
[2017-07-16] MEDS: Melatonin 3 MG TABLET PO PRN (20:33)
[2017-07-17] MEDS: Ipratropium/Albuterol Neb 3 ML IH SCH ×3 (03:16→11:24)
[2017-07-17] MEDS: *HR* Enoxaparin 40 MG/0.4 ML SYRINGE SQ SCH (05:48)
[2017-07-17 05:50] LABS: Basophils % 0.1 %; Hematocrit 51.9 % (37.5-50.1); Hemoglobin 16.6 g/dL (12.9-16.9); Lymphocytes # 0.5 K/mcL (0.6-4.6); Lymphocytes % 2.6 %; Mean Corpuscular Hemoglobin 30.5 pg (28.0-33.3); Mean Corpuscular Volume 95.4 fL (83.0-100.0); Mean Platelet Volume 11.6 fL (9.4-12.4); Monocytes # 0.5 K/mcL (0.0-1.3); Monocytes % 2.9 %; Neutrophils # 17.4 K/mcL (1.6-8.9); Platelet Count 129 K/mcL (140-400); Red Blood Count 5.44 M/mcL (4.19-5.50); Red Cell Distribution Width 13.8 % (11.5-14.5); Segmented Neutrophils % 93.4 %
[2017-07-17 06:19] LABS: Calcium 8.7 mg/dL (8.6-10.3); Potassium 4.4 mEq/L (3.5-5.1)
[2017-07-17] MEDS: amLODIPine 5 MG TABLET PO SCH (09:29)
[2017-07-17] MEDS: methylPREDNISolone 125 MG/2 ML VIAL IVP SCH (09:29)
[2017-07-17] MEDS: Nicotine 21 MG PATCH.TD24 TD SCH (09:29)
--- NOTE | 2017-07-17 11:32 | Discharge Summary ---
Date of Encounter: 07/17/17 Time of Encounter: 11:24 - Discharge Diagnosis (1) Acute exacerbation of chronic obstructive airways disease Priority: Primary Status: Acute Comments: Patient has a history of COPD and continues to smoke. He does not plan on stopping He has duo nebs every 4 hours at home He stated he was treated for pneumonia in June he just completed his antibiotics and felt worse so had presented back to the emergency room He did not complete his steroid taper per his son CRP 34, lactic acid 0.9 Pulmonary consult, appreciate the help Continue steroids and will switch to prednisone taper tomorrow Continue duo nebs and every hour albuterol for breakthrough wheezing Continue IV Levaquin Reviewed CT of the chest AFB smear , Aspergillus galactomannan Ag, sputum culture, Fungal AV, QuantiFERON -TB, Legionella antigen Legionella antigen, mycoplasma pneumoniae IgG IgM, respiratory virus panel, Respiratory infectious panel, S pneumoniae antigen are ordered O2 to maintain sats greater than 89%, patient qualified for 2 L of oxygen continuously with his O2 saturations Patient is back to his baseline. He does have duo nebs at home. We will discharge with Levaquin by mouth to continue his course and prednisone taper. (2) Acute kidney injury Priority: Primary Status: Acute Comments: Nation with acute Benjamin the injury, his levels are slowly trending down. Would recommend follow-up with his primary care physician within the week and recheck his levels with him. The patient is adamant that he is going to leave today and I would rather discharge him safely then have him go AGAINST MEDICAL ADVICE acute on chronic Creatinine 1.42 on admission 1.24 - 1.28 was baseline, 1.61 -> 1.55 avoid nephrotoxic agents (3) HTN (hypertension) Priority: Secondary Status: Chronic Comments: Blood pressure is stable, after initial elevation continue home medications at adjusted dose Qualifiers: Hypertension type: essential hypertension Qualified Code(s): I10 - Essential (primary) hypertension (4) Smoking Priority: Primary Status: Chronic Comments: Patient is smoking a pack a day and has no intention of stopping on discharge so will not continue his NicoDerm patch (5) Bronchitis Priority: Primary Status: Acute Comments: Patient was seen by pulmonology who evaluated him and feels he does not have pneumonia Continue Levaquin to complete course Preliminary blood cultures no growth 2 sets Continue respiratory treatments (6) Influenza A Priority: Primary Status: Acute Comments: Positive for influenza A on the RIP dose Tamiflu renally adjusted day 3 of 5 day course (7) Hypoxemic respiratory failure, chronic Priority: Primary Status: Chronic Comments: Patient with severe COPD requiring oxygen to maintain saturations greater than 88%, will discharge on O2 at 2 L continuously. He will need to follow up with his PCP The patient is reluctant to go home with oxygen but I did talk him into accepting it as I still will help his symptomatology at home. - Discharge Medications Prescriptions: Albuterol Sulfate [Ventolin Hfa] 18 gm IH Q4H PRN 30 Days #1 hfa.aer.ad PRN Reason: Wheezing amLODIPine [Norvasc] 10 mg PO DAILY #30 tablet Levofloxacin [Levaquin] 750 mg PO DAILY #5 tablet Melatonin 6 mg PO HS PRN #30 tablet PRN Reason: Insomnia Oseltamivir Phosphate [Tamiflu] 30 mg PO Q24H 2 Days #2 capsule predniSONE [PredniSONE] 10 mg PO DAILY #30 tablet Home Medications: NIFEdipine [Nifedipine ER] 60 mg PO DAILY 07/14/17 [History] Albuterol Sulfate [Ventolin Hfa] 18 gm IH Q4H PRN 30 Days #1 hfa.aer.ad [Rx] Ipratropium/Albuterol Neb [Duoneb] 3 ml IH Q2HR PRN #0 07/17/17 [Rx] Ipratropium/Albuterol Neb [Duoneb] 3 ml IH Q6H inhsol 07/17/17 [Rx] Levofloxacin [Levaquin] 750 mg PO DAILY #5 tablet 07/17/17 [Rx] Mag Hydrox/Al Hydrox/Simeth [Maalox] 15 ml PO Q6HR PRN udc 07/17/17 [Rx] Melatonin 6 mg PO HS PRN #30 tablet 07/17/17 [Rx] Oseltamivir Phosphate [Tamiflu] 30 mg PO Q24H 2 Days #2 capsule 07/17/17 [Rx] amLODIPine [Norvasc] 10 mg PO DAILY #30 tablet 07/17/17 [Rx] predniSONE [PredniSONE] 10 mg PO DAILY #30 tablet 07/17/17 [Rx] Allergies/Adverse Reactions: 3 Allergy/AdvReac Type Severity Reaction Status Date / Time No Known Allergies Allergy Verified 07/14/17 14:52 Procedures/tests Complete & Pending: Procedures Performed prior 72 hours Category Date Time Status CT chest w/o contrast [CT chest wo con] [CT] Stat Cat Scan 07/15/17 09:23 Completed EV echocardiogram Routine Y 07/15/17 17:42 Completed Date of admission: 07/14/17 18:37 Primary care physician: Neftali Ortez MD Consults: 07/16/17 12:35 Consult to Physical Therapy [CONS] Routine Comment: Evaluate, develop and implement POC Reason for Consult: lives at home alone, weakness 07/16/17 12:36 Consult to Occupational Therapy [CONS] Routine Comment: Evaluate, develop and implement POC Reason for Consult: lives at home alone, weakness 07/16/17 16:40 Consult to Director Of Pediatric Rehabilitation [CONS] Routine Reason for SW Consult: living will and home needs Discharging clinician: Zamzam Romano Anticipated date of discharge: 07/17/17 - Patient Status Disposition: Home, Self-Care Condition: Fair Overall status at discharge: patient is progressing back to baseline - Discharge Instructions Follow Up With: Neftali Ortez MD [Primary Care Provider] - - Diet and Activity Activity: resume usual activities as tolerated, wear oxygen at all times Diet: advance to your usual diet Interval History: Patient states he is feeling much better today he is feeling back to his baseline. I encouraged him to stay one more day but he is adamant that he is going to go home today. I would rather discharge him a day early with proper instructions and follow-up arranged in time for teaching then to have him leave AGAINST MEDICAL ADVICE that he will be discharged today with close follow-up with his primary care physician. He did talk with pulmonary and did not want any invasive treatments or testing. I spoke with him and he would still like to remain a full code and "try for a little while". enrollment services vice president to see him regarding power of requirements engineer and living will paperwork. He states he has a kind of nebulizer medications at home in a box. Does have a home nebulizer. He agreed to take home oxygen. Hospital course: Mr. Mcginnis is a 81 year old male admitted with a severe COPD exacerbation, bronchitis and influenza A. He has been treated with aggressive COPD modalities including steroids, nebulizers and Levaquin. He has agreed to accept home oxygen. Please refer to my assessment and plan for further details of this admission. He does remain a full code at this time. Time spent discussing smoking cessation with patient: 3 to 10 minutes - Time Spent with Patient Total time spent providing and/or coordinating discharge services: Less than 30 minutes (Patient is not interested in smoking cessation) - Constitutional Vitals: Temp Pulse Resp BP Pulse Ox 97.6 F 83 17 131/73 93 07/17/17 07:41 07/17/17 07:41 07/17/17 07:41 07/17/17 07:41 07/17/17 10:44 General appearance: Present: cooperative, A&O X 3, pleasant, no acute distress, answers questions appropriately - Head Head exam: Present: atraumatic, normocephalic - Eye Eye exam: Present: PERRL, conjuntiva pink, sclera anicteric Pupils: Present: PERRL - Neck Neck exam general surgery: Present: supple, trachea midline. Absent: lymphadenopathy - Respiratory Respiratory exam: Present: decreased breath sounds, wheezes. Absent: accessory muscle use, rales, rhonchi Additional comments: Patient remains dusky in appearance lips and mucous membranes. He has very fine scattered wheeze much improved airflow from admission. He has no bronchospasm on forced expiration, no sensory muscle use. Remains on 2 L nasal cannula and maintaining sats - Cardiovascular Cardiovascular exam: Present: RRR, +S1, +S2. Absent: diastolic murmur, gallop, rubs, systolic murmur - GI/Abdominal GI/Abdominal exam: Present: normal bowel sounds, soft, no peritoneal signs. Absent: distended, tenderness - Extremities Exam Extremities exam: Present: warm, radial pulses palpable and symmetrical. Absent : calf tenderness, cyanotic, pedal edema - Neurological Exam Neurological exam: Present: CN II-XII intact, oriented X3, no focal deficits, strengths equal and symetr throughout. Absent: pronater drift, facial droop, speech deficit - Skin Skin exam: Present: dry, intact, warm
--- NOTE | 2017-07-17 12:05 | Event Note ---
Date of Encounter: 07/17/17 Time of Encounter: 12:04 Spoke with son and reviewed discharge instructions and discussed living will CODE STATUS and oxygen use.
[2017-07-17 12:28] VITALS: BP 134/77
--- NOTE | 2017-07-17 13:10 | Physician Discharge Referral ---
Home Health/Hosp Referral Info Attending Provider: marcel - Diagnosis (1) Acute exacerbation of chronic obstructive airways disease Priority: Primary Status: Acute (2) Acute kidney injury Priority: Primary Status: Chronic (3) HTN (hypertension) Priority: Secondary Status: Chronic (4) Smoking Priority: Primary Status: Chronic (5) Bronchitis Priority: Primary Status: Acute (6) Influenza A Priority: Primary Status: Acute (7) Hypoxemic respiratory failure, chronic Priority: Primary Status: Chronic - Respiratory Orders Oxygen / L per min (2l nc/ cont) Smoking Cessation: Smoking cessation has been advised. For more information, call the [place] Tobacco Quit Line at 0-370-OCPD-NOW. - Diet/Nutrition Diet/Nutrition Orders: Cardiac - Activity Activity Orders: Up ad nader - Services Needed Following services are medically necessary services: Nursing, Home Health Aide, Physical Therapy, Occupational Therapy, Med Social Work - Transfer Medications Prescriptions: Albuterol Sulfate [Ventolin Hfa] 18 gm IH Q4H PRN 30 Days #1 hfa.aer.ad PRN Reason: Wheezing amLODIPine [Norvasc] 10 mg PO DAILY #30 tablet Levofloxacin [Levaquin] 750 mg PO DAILY #5 tablet Melatonin 6 mg PO HS PRN #30 tablet PRN Reason: Insomnia Oseltamivir Phosphate [Tamiflu] 30 mg PO Q24H 2 Days #2 capsule predniSONE [PredniSONE] 10 mg PO DAILY #30 tablet Home Medications: NIFEdipine [Nifedipine ER] 60 mg PO DAILY 07/14/17 [History] Albuterol Sulfate [Ventolin Hfa] 18 gm IH Q4H PRN 30 Days #1 hfa.aer.ad [Rx] Ipratropium/Albuterol Neb [Duoneb] 3 ml IH Q2HR PRN #0 07/17/17 [Rx] Ipratropium/Albuterol Neb [Duoneb] 3 ml IH Q6H inhsol 07/17/17 [Rx] Levofloxacin [Levaquin] 750 mg PO DAILY #5 tablet 07/17/17 [Rx] Mag Hydrox/Al Hydrox/Simeth [Maalox] 15 ml PO Q6HR PRN udc 07/17/17 [Rx] Melatonin 6 mg PO HS PRN #30 tablet 07/17/17 [Rx] Oseltamivir Phosphate [Tamiflu] 30 mg PO Q24H 2 Days #2 capsule 07/17/17 [Rx] amLODIPine [Norvasc] 10 mg PO DAILY #30 tablet 07/17/17 [Rx] predniSONE [PredniSONE] 10 mg PO DAILY #30 tablet 07/17/17 [Rx] Allergies/Adverse Reactions: 3 Allergy/AdvReac Type Severity Reaction Status Date / Time No Known Allergies Allergy Verified 07/14/17 14:52 Certification: Further, I certify that my clinical findings support that this patient is homebound (i.e. absences from home require considerable and taxing effort and are for medical reasons or spiritism services or infrequently or short duration when for other reasons) because: Homebound Reason: Patient requires assistance of a person or device to safely leave home, Leaving home requires considerable and taxing effort due to condition, Severity of cardiac or pulmonary status limits activity tolerance Attestation: My signature below is to certify that this patient is under my care and that I, or nurse practitioner, or a physician's dental laboratory assistant working with me, has a face-to -face encounter with this patient.
--- NOTE | 2017-07-17 16:11 | Electrocardiograph Report ---
[place] [id number] Test Date: 2017-07-14 Pat Name: Nikolai Mcginnis Department: 103 Room: 3B46 Gender: M Director Of Photography: DONAL : 1935 Requested By: Juan Ramon Chamberlain Order Number: [id number] Reading MD: Topher Massey DO Measurements Intervals [place] Rate: 79 P: 69 [place]: 190 QRS: 49 QRSD: 69 T: 87 QT: 345 QTc: 379 Interpretive Statements SINUS RHYTHM WITH OCCASIONAL SUPRAVENTRICULAR PREMATURE COMPLEXES Electronically Signed On 07-17-2017 16:10:10 EST by Topher Massey DO
[2017-07-18 15:15] LABS: QuantiFERON Mitogen minus NIL 0.68 IU/mL; QuantiFERON-TB minus NIL 0.01 IU/mL (0.00-0.34)
[2017-07-18 15:42] LABS: A.galactomannan Ag Index 0.04
[2017-07-19 14:55] LABS: QuantiFERON NIL 0.03 IU/mL; QuantiFERON-TB Gold In-Tube NEGATIVE (Negative)
[2017-07-19 15:11] LABS: Mycoplasma pneumoniae IgG 0.15 U/L (<=0.09)
[2017-07-21 14:51] LABS: Aspergillus spp. Ab by ID NONE DETECTED (None Detected); Blastomyces dermatitidis Ab ID NONE DETECTED (None Detected); Coccidioides immitis Ab by ID NONE DETECTED (None Detected); Histoplasma spp.Ab by ID NONE DETECTED (None Detected)
== END 2017-07-17 13:38 | disposition home or self-care (01) | DRG 190 ==
LOC: EMEROO 14:47 → 3BNU 18:37
PROVIDERS: ADMIT Internal Medicine Cardiovascular Disease; ATTEND Registered Nurse

== ENCOUNTER 2017-07-20 12:27 | Observation (INO) ==
[2017-07-20] MEDS ORDERED: Ipratropium/Albuterol Neb 3 ML IH ONE (12:36)
[2017-07-20 13:03] LABS: Basophils # 0.1 K/mcL (0.0-0.2); Basophils % 0.9 %; Eosinophils % 0.2 %; Immature Granulocytes % 2.4 % (0-4); Lymphocytes # 0.7 K/mcL (0.6-4.6); Lymphocytes % 6.3 %; Mean Corpuscular HGB Conc 32.1 g/dL (31.6-35.5); Mean Corpuscular Hemoglobin 30.5 pg (28.0-33.3); Mean Corpuscular Volume 94.8 fL (83.0-100.0); Mean Platelet Volume 10.9 fL (9.4-12.4); Monocytes % 8.6 %; Neutrophils # 9.5 K/mcL (1.6-8.9); Platelet Count 120 K/mcL (140-400); Red Blood Count 6.53 M/mcL (4.19-5.50); Red Cell Distribution Width 14.3 % (11.5-14.5); Segmented Neutrophils % 81.6 %
--- NOTE | 2017-07-20 13:06 | Emergency Department Note ---
Disposition Clinical Impression: COPD exacerbation Disposition: Admitted As Inpatient Condition: Good Time of Disposition: 15:21 General Adult HPI - General Chief complaint: ED Shortness of Breath/Dyspnea Stated complaint: [place] Time Seen by Provider: 07/20/17 12:34 Source: patient, EMS Mode of arrival: EMS Limitations: no limitations Nursing Notes Reviewed: Yes Vital Signs Reviewed: Yes - History of Present Illness HPI Narrative: 81-year-old male with significant past medical history of hypertension and COPD presenting to the emergency department complaining of increased shortness of breath. Patient was admitted within the past week for influenza and pneumonia. He was discharged on Monday. Initially feeling better. Over the past couple of days he has had increased work of breathing. Patient had 2 start within 2-3 L of oxygen throughout the day when he normally wears 2 L of oxygen at night. Patient denies any fevers, nausea, vomiting abdominal pain or diarrhea. Denies any chest pain. Pain Scale: 4 - Related Data Home Medications Medication Instructions Recorded Confirmed NIFEdipine [Nifedipine ER] 60 mg PO DAILY 07/14/17 07/20/17 Warfarin [Coumadin] 1 mg PO HILARIO 07/20/17 07/20/17 Warfarin [Coumadin] 2 mg PO [id number] 07/20/17 07/20/17 Previous Rx's Medication Instructions Recorded Albuterol Sulfate [Ventolin Hfa] 18 gm IH Q4H PRN 30 Days #1 07/17/17 hfa.aer.ad Ipratropium/Albuterol Neb [Duoneb] 3 ml IH Q6H inhsol 07/17/17 Levofloxacin [Levaquin] 750 mg PO DAILY #5 tablet 07/17/17 Mag Hydrox/Al Hydrox/Simeth 15 ml PO Q6HR PRN udc 07/17/17 [Maalox] Melatonin 6 mg PO HS PRN #30 tablet 07/17/17 amLODIPine [Norvasc] 10 mg PO DAILY #30 tablet 07/17/17 predniSONE [PredniSONE] 10 mg PO DAILY #30 tablet 07/17/17 Allergies Allergy/AdvReac Type Severity Reaction Status Date / Time No Known Allergies Allergy Verified 07/14/17 14:52 All systems ED: reviewed and negative except as stated. Constitutional: Denies: fever, chills Cardiovascular: Denies: chest pain, palpitations Respiratory: Reports: cough, dyspnea. Denies: hemoptysis Gastrointestinal: Denies: abdominal pain, nausea, vomiting Neurological: Denies: numbness, paresthesias Past Medical History - Past Medical History Attestation: Yes The following information was validated with the patient. Medical history: Reports: COPD, DVT, hypertension Surgical history: Reports: non-contributory Psychiatric history: Reports: no psych history - Social History Smoking Status: Former smoker Smokeless Tobacco Status: No Alcohol use: Reports: none Drug use: Reports: none Physical Exam - General Limitations: no limitations General appearance: alert, in no apparent distress - Head Head exam: atraumatic, normocephalic, normal inspection - Eye Eye exam: Present: normal appearance. Absent: scleral icterus, conjunctival injection - ENT ENT exam: mucous membranes dry - Neck Neck exam: Present: normal inspection, full ROM - Chest Chest inspection: Present: normal inspection, symmetric chest wall rise. Absent : tenderness, rash - Respiratory Respiratory exam: Present: other (Decreased breath sounds bilaterally anterior and posterior). Absent: stridor - Cardiovascular Cardiovascular exam: Present: regular rate, normal rhythm, normal heart sounds - Abdominal Exam Abdominal exam: Present: soft, Non-Tender. Absent: distention, guarding, rebound - Extremities Exam Extremities exam: Present: full ROM - Neurological Exam Neurological exam: Present: alert, oriented X3 - Psychiatric Psychiatric exam: Present: normal affect, normal mood - Skin Skin exam: Present: dry Course Course Narrative: 81-year-old male presenting with the chief complaint of increased shortness of breath. Patient hypoxic on 2 L nasal cannula around 90%. We will place the patient on mask for oxygen due to his mouth breathing. We will obtain basic lab work including CBC BMP along with chest x-ray. Patient's physical exam shows decreased breath sounds throughout therefore we also provided him with steroids and breathing treatments. Patient's most likely disposition will be admission for COPD exacerbation pending results. He is alert and oriented 3 in the room. Hypoxic at 90% otherwise vital signs stable. He agrees with this plan. Vital Signs Temperature 98.5 F 07/20/17 12:29 Pulse Rate 81 07/20/17 12:29 Respiratory Rate 18 07/20/17 12:29 Blood Pressure 125/84 07/20/17 12:29 O2 Sat by Pulse Oximetry 92 07/20/17 12:29 Temperature 98.5 F 07/20/17 12:29 Pulse Rate 118 02/15/18 18:33 Respiratory Rate 23 07/20/17 18:33 Blood Pressure 133/94 07/20/17 18:33 O2 Sat by Pulse Oximetry 92 07/20/17 18:33 Oxygen Delivery Oxygen Delivery Venti Mask Medical Decision Making - Lab Data Result diagrams: 07/20/17 12:53 07/20/17 12:53 Lab Results 07/20/17 07/20/17 07/20/17 Range/Units 12:53 12:53 12:53 WBC 11.6 H (4.3-11.1) K/mcL RBC 6.53 H (4.19-5.50) M/mcL Hgb 19.9 H D (12.9-16.9) g/dL Hct 61.9 H (37.5-50.1) % MCV 94.8 (83.0-100.0) fL MCH 30.5 (28.0-33.3) pg MCHC 32.1 (31.6-35.5) g/dL RDW 14.3 (11.5-14.5) % Plt Count 120 L (140-400) K/mcL MPV 10.9 (9.4-12.4) fL Immature Gran % 2.4 (0-4) % Seg Neutrophils % 81.6 % Lymphocytes % 6.3 % Monocytes % 8.6 % Eosinophils % 0.2 % Basophils % 0.9 % Neutrophils # 9.5 H (1.6-8.9) K/mcL Lymphocytes # 0.7 (0.6-4.6) K/mcL Monocytes # 1.0 (0.0-1.3) K/mcL Eosinophils # 0.0 (0.0-0.6) K/mcL Basophils # 0.1 (0.0-0.2) K/mcL PT (9.4-12.1) Seconds INR APTT (26.0-36.0) Seconds Sodium 139 (136-145) mEq/L Potassium 4.8 (3.5-5.1) mEq/L Chloride 101 (98-107) mEq/L Carbon Dioxide 27 (23-29) mEq/L BUN 38 H (8-23) mg/dL Creatinine 1.69 H (0.70-1.30) mg/dL Est GFR ( Amer) 48 L (> 60) Est GFR (Non-Af Amer) 39 L (> 60) BUN/Creatinine Ratio 22 (6-26) Glucose 87 (70-105) mg/dL Calculated Osmolality 296 (280-300) Lactic Acid (0.5-2.2) mmol/L Calcium 8.9 (8.6-10.3) mg/dL Troponin I < 0.03 (< 0.04) ng/mL B-Natriuretic Peptide (Less than 100) pg/mL Specimen Rejected 07/20/17 07/20/17 07/20/17 Range/Units 12:53 12:53 14:51 WBC (4.3-11.1) K/mcL RBC (4.19-5.50) M/mcL Hgb (12.9-16.9) g/dL Hct (37.5-50.1) % MCV (83.0-100.0) fL MCH (28.0-33.3) pg MCHC (31.6-35.5) g/dL RDW (11.5-14.5) % Plt Count (140-400) K/mcL MPV (9.4-12.4) fL Immature Gran % (0-4) % Seg Neutrophils % % Lymphocytes % % Monocytes % % Eosinophils % % Basophils % % Neutrophils # (1.6-8.9) K/mcL Lymphocytes # (0.6-4.6) K/mcL Monocytes # (0.0-1.3) K/mcL Eosinophils # (0.0-0.6) K/mcL Basophils # (0.0-0.2) K/mcL PT 13.1 H (9.4-12.1) Seconds INR 1.2 APTT 24.7 L (26.0-36.0) Seconds Sodium (136-145) mEq/L Potassium (3.5-5.1) mEq/L Chloride (98-107) mEq/L Carbon Dioxide (23-29) mEq/L BUN (8-23) mg/dL Creatinine (0.70-1.30) mg/dL Est GFR ( Amer) (> 60) Est GFR (Non-Af Amer) (> 60) BUN/Creatinine Ratio (6-26) Glucose (70-105) mg/dL Calculated Osmolality (280-300) Lactic Acid (0.5-2.2) mmol/L Calcium (8.6-10.3) mg/dL Troponin I (< 0.04) ng/mL B-Natriuretic Peptide 83 (Less than 100) pg/mL Specimen Rejected Hemolyzed 07/20/17 Range/Units 15:16 WBC (4.3-11.1) K/mcL RBC (4.19-5.50) M/mcL Hgb (12.9-16.9) g/dL Hct (37.5-50.1) % MCV (83.0-100.0) fL MCH (28.0-33.3) pg MCHC (31.6-35.5) g/dL RDW (11.5-14.5) % Plt Count (140-400) K/mcL MPV (9.4-12.4) fL Immature Gran % (0-4) % Seg Neutrophils % % Lymphocytes % % Monocytes % % Eosinophils % % Basophils % % Neutrophils # (1.6-8.9) K/mcL Lymphocytes # (0.6-4.6) K/mcL Monocytes # (0.0-1.3) K/mcL Eosinophils # (0.0-0.6) K/mcL Basophils # (0.0-0.2) K/mcL PT (9.4-12.1) Seconds INR APTT (26.0-36.0) Seconds Sodium (136-145) mEq/L Potassium (3.5-5.1) mEq/L Chloride (98-107) mEq/L Carbon Dioxide (23-29) mEq/L BUN (8-23) mg/dL Creatinine (0.70-1.30) mg/dL Est GFR ( Amer) (> 60) Est GFR (Non-Af Amer) (> 60) BUN/Creatinine Ratio (6-26) Glucose (70-105) mg/dL Calculated Osmolality (280-300) Lactic Acid 1.2 (0.5-2.2) mmol/L Calcium (8.6-10.3) mg/dL Troponin I (< 0.04) ng/mL B-Natriuretic Peptide (Less than 100) pg/mL Specimen Rejected - EKG Data EKG #1 EKG attestation: Yes I reviewed and interpreted this EKG. EKG results narrative: Sinus tachycardia with frequent PACs and artifact. Rate of 108 bpm. QRS 74, QTc 383. Nonspecific T wave changes. No sign of acute ST segment elevation or ischemia Attestation Statement - Attestation Attestation: I, Yonis Willett, examined this patient and my medical decision-making was reviewed with the HABITAT MANAGEMENT COORDINATOR/PA/Advanced Practice Nurse/Resident Physician. I agree with the documented findings, disposition and treatment plan as described except to the extent set forth below. 81-year-old male presents emergency Department with concerns of difficulty in breathing. Patient has a history of COPD. He was recently admitted to the hospital for possible pneumonia. After discharge his breathing worsen significantly. Patient has minimal air movement on bilateral posterior lung hess. He is satting 90% on 4 L of oxygen. He had retractions in the supraclavicular as well as intercostal spaces during my initial evaluation. These improved significantly after administration of albuterol. Patient was given [facility] emergency department and he feels comfortable to plan for admission to the hospital for further care and evaluation of likely COPD exacerbation.
[2017-07-20 13:20] LABS: Calcium 8.9 mg/dL (8.6-10.3); Potassium 4.8 mEq/L (3.5-5.1)
[2017-07-20 14:23] LABS: Hematocrit 61.9 % (37.5-50.1); Hemoglobin 19.9 g/dL (12.9-16.9)
[2017-07-20] MEDS ORDERED: 0.9 % Sodium Chloride 1,000 ML IVC ONE (14:27)
[2017-07-20] MEDS ORDERED: methylPREDNISolone 125 MG/2 ML VIAL IVP ONE (14:45)
[2017-07-20 15:48] LABS: INR 1.2; Prothrombin Time 13.1 Seconds (9.4-12.1)
[2017-07-20 15:51] LABS: Activated Partial Thrombo Time 24.7 Seconds (26.0-36.0)
[2017-07-20] MEDS ORDERED: Ondansetron 4 MG/2 ML VIAL IVP PRN (16:22)
[2017-07-20] MEDS ORDERED: Acetaminophen 325 MG TABLET PO PRN (16:26)
[2017-07-20] MEDS ORDERED: Naloxone 0.4 MG/ML INJ IVP PRN (16:26)
--- NOTE | 2017-07-20 16:30 | Internal Med History&Physical ---
Date of Encounter: 07/20/17 Time of Encounter: 16:28 Assessment and Plan (1) Acute and chronic respiratory failure ([id number]) Current visit: Yes Status: Acute likely due to COPD exacerbation. Plan as below Qualifiers: Respiratory failure complication: hypoxia Qualified Code(s): J96.21 - Acute and chronic respiratory failure with hypoxia (2) Acute exacerbation of chronic obstructive airways disease Current visit: No Status: Acute will put the patient on IV steroida again. 60 mg Q8hrs. c/w nebs. wean down O2 as tolerated. (3) History of DVT (deep vein thrombosis) Current visit: Yes Status: Acute Says he was on coumadin up till about 4 weeks ago or so. Not sure why it was stopped. His DVT was about 4 years ago after a long flight. I think it is ok to continue to hold coumadin. It was his first episode of a blood clot and it was provoked. Adequate treatment would have been 3-6 months. INR 1.2 (4) Secondary polycythemia Current visit: Yes Status: Acute likely secondary to chronic hypoxia. H/H consistently elevated. (5) HTN (hypertension) Current visit: No Status: Chronic Resume Norvasc Qualifiers: Hypertension type: essential hypertension Qualified Code(s): I10 - Essential (primary) hypertension (6) Acute kidney injury Current visit: No Status: Chronic start gentle hydration till the am and check labs. avoid nephrotoxins. stop IV fluids in the morning if possible. (7) Nicotine dependence Current visit: No Status: Acute Nicotine patch Qualifiers: Nicotine product type: cigarettes Substance use status: uncomplicated Qualified Code(s): F17.210 - Nicotine dependence, cigarettes, uncomplicated (8) DVT prophylaxis Current visit: No Status: Acute heparin SQ Internal Medicine - H&P: HPI Chief complaint: Shortness of breath Admitted From: Home Plans for Post Hospital Care: Home History of present illness: Mr. Mcginnis is a 81 year old male with a history of COPD on 2 L continuous, history of DVT used to be on Coumadin, hypertension, tobacco abuse who was discharged a couple days ago after treatment for COPD exacerbation with IV steroids, nebulizers, and IV antibiotics. At the time based on the discharge summary the patient was persistent on leaving and physician who discharged him felt compelled to discharge the patient relief as they did not want the patient to leave against medical advise. The patient refused placement and went home where he lives alone with some home care services. The patient realized that he had made a mistake the following morning when he continued to be short of breath and had to go up on his oxygenation. Today he felt that he was short of breath to the point where he needed to come and get evaluated. When he presented to the ED he was noted to be hypoxic with saturation of 90% on 2 L. He was put on oxygen mask and his his Paxil was increased about 4 L with sats maintained around 92%. He denies any cough. Denies any fever chills nausea vomiting chest pain and abdominal pain urine symptoms or neurological symptoms. His workup in the emergency department showed a white count of 11.6 but he was on steroids in the outpatient setting as well. His hemoglobin was 19.9 that he had consistently elevated hemoglobin past. His platelets were 120 and his creatinine was mildly elevated at 1.69 compared to baseline. The rest of his electrolytes were unremarkable. The patient is being admitted for a COPD exacerbation for which the patient was recently and did not finish treatment as he had requested to be discharged early. Past Med Surg Social Fam HX - Past Medical History Medical history: COPD, DVT, hypertension Psychiatric history: no psych history - Past Surgical History Surgical History: non-contributory - Social History Smoking Status: Former smoker Smokeless Tobacco Status: No Alcohol use: none Drug use: none - Family History Mother Living Status: Hx Family Cardiac Disorders: No Hx Family Respiratory Disorders: No Hx Family Cancer: No Hx Family GI Disorders: No Hx Family Endocrine Disorder: No Hx Family Neuromuscular Disorders: No Hx Family Neurologic Disorders: No Hx Family HEENT Disorders: No Hx Family Autoimmune Disorders: No Internal Medicine - H&P: Meds NIFEdipine [Nifedipine ER] 60 mg PO DAILY 07/14/17 [History] Albuterol Sulfate [Ventolin Hfa] 18 gm IH Q4H PRN 30 Days #1 hfa.aer.ad [Rx] Ipratropium/Albuterol Neb [Duoneb] 3 ml IH Q6H inhsol 07/17/17 [Rx] Levofloxacin [Levaquin] 750 mg PO DAILY #5 tablet 07/17/17 [Rx] Mag Hydrox/Al Hydrox/Simeth [Maalox] 15 ml PO Q6HR PRN udc 07/17/17 [Rx] Melatonin 6 mg PO HS PRN #30 tablet 07/17/17 [Rx] amLODIPine [Norvasc] 10 mg PO DAILY #30 tablet 07/17/17 [Rx] predniSONE [PredniSONE] 10 mg PO DAILY #30 tablet 07/17/17 [Rx] Warfarin [Coumadin] 1 mg PO HILARIO 07/20/17 [History] Warfarin [Coumadin] 2 mg PO [id number] 07/20/17 [History] 3 Allergy/AdvReac Type Severity Reaction Status Date / Time No Known Allergies Allergy Verified 07/14/17 14:52 All Systems PM: A 10-system review of systems was performed and is negative for pertinent findings except as documented above in the HPI. Review of systems: All systems reviewed are negative except for what is mentioned above - Constitutional Vitals: Temp Pulse Resp BP Pulse Ox 98.5 F 107 14 121/70 92 07/20/17 12:29 07/20/17 15:38 07/20/17 15:38 07/20/17 15:38 07/20/17 15:38 Exam: GEN: NAD, cachectic HEENT: AT, NC, No cyanosis, oral mucosa is moist, No JVD Lymphatics: No lymphadenoapthy Eyes: Extrocular muscles intact, anicteric CVS:RRR. S1, S2, No m/r/g RESP: Diminished with expiratory wheezes on the posterior lung hess throughout. ABD: Soft, NT, ND, +BS EXT: No edema, No rashes, 2+ DP NEURO: Nonfocal, CN II-XII intact, No focal motor or sensory deficits Psych: Cooperative, Not anxious or depressed Internal Med - H&P Results - Labs CBC & Chem 7: 07/20/17 12:53 07/20/17 12:53 Labs: Short CBC 07/20/17 Range/Units 12:53 WBC 11.6 H (4.3-11.1) K/mcL Hgb 19.9 H D (12.9-16.9) g/dL Hct 61.9 H (37.5-50.1) % Plt Count 120 L (140-400) K/mcL Neutrophils # 9.5 H (1.6-8.9) K/mcL BMP 07/20/17 12:53 Sodium 139 Potassium 4.8 Chloride 101 Carbon Dioxide 27 BUN 38 H Creatinine 1.69 H Glucose 87 Calcium 8.9 Cardiac Enzymes 07/20/17 Range/Units 12:53 Troponin I < 0.03 (< 0.04) ng/mL - Impressions ITS Impressions Chest X-Ray 07/20/17 12:36 IMPRESSION: No focal consolidation. D/ / Huong Thorne MD / Huong Thorne MD Interpreting Provider: Huong Thorne MD
[2017-07-20] MEDS: Ipratropium/Albuterol Neb 3 ML IH PRN (17:22)
[2017-07-20] MEDS ORDERED: Warfarin perPT PO PRN (18:00)
[2017-07-20] MEDS: Nicotine 21 MG PATCH.TD24 TD SCH (18:45)
[2017-07-20] MEDS: 0.9 % Sodium Chloride 1,000 ML IVC SCH (22:32)
[2017-07-20] MEDS: *HR* Heparin 5,000 UNIT/ML VIAL SQ SCH (22:32)
[2017-07-20] MEDS: methylPREDNISolone 125 MG/2 ML VIAL IVP SCH (22:32)
[2017-07-21] MEDS: Ipratropium/Albuterol Neb 3 ML IH PRN (04:56)
[2017-07-21 05:25] LABS: Basophils % 0.2 %; Hematocrit 52.9 % (37.5-50.1); Immature Granulocytes % 1.6 % (0-4); Lymphocytes # 0.2 K/mcL (0.6-4.6); Lymphocytes % 2.2 %; Mean Corpuscular HGB Conc 31.9 g/dL (31.6-35.5); Mean Corpuscular Hemoglobin 30.2 pg (28.0-33.3); Mean Corpuscular Volume 94.6 fL (83.0-100.0); Mean Platelet Volume 11.6 fL (9.4-12.4); Monocytes # 0.2 K/mcL (0.0-1.3); Monocytes % 1.7 %; Neutrophils # 9.1 K/mcL (1.6-8.9); Platelet Count 104 K/mcL (140-400); Red Blood Count 5.59 M/mcL (4.19-5.50); Red Cell Distribution Width 13.6 % (11.5-14.5); Segmented Neutrophils % 94.3 %
[2017-07-21] MEDS: *HR* Heparin 5,000 UNIT/ML VIAL SQ SCH ×3 (05:30→23:10)
[2017-07-21 06:02] LABS: Hemoglobin 16.9 g/dL (12.9-16.9)
[2017-07-21 06:06] LABS: Calcium 8.2 mg/dL (8.6-10.3); Magnesium 2.5 mg/dL (1.6-2.6); Potassium 4.6 mEq/L (3.5-5.1)
--- NOTE | 2017-07-21 10:22 | Electrocardiograph Report ---
[facility] Test Date: 2017-07-20 Pat Name: Nikolai Mcginnis Department: 104 Room: 2A63 Gender: M Metal Sorter: TMR : 1935 Requested By: Rosana Mata Order Number: [id number] Reading MD: Rudi Paulino MD Measurements Intervals [place] Rate: 108 P: NV: 0 QRS: 53 QRSD: 74 T: 88 QT: 320 QTc: 383 Interpretive Statements Sinus tachycardia with irregular rate NONSPECIFIC T-WAVE ABNORMALITY ABNORMAL RHYTHM ECG Electronically Signed On 07-21-2017 10:20:43 EST by Rudi Paulino MD
[2017-07-21] MEDS: 0.9 % Sodium Chloride 1,000 ML IVC SCH (10:25)
[2017-07-21] MEDS: methylPREDNISolone 125 MG/2 ML VIAL IVP SCH (10:26)
[2017-07-21] MEDS: Nicotine 21 MG PATCH.TD24 TD SCH (10:27)
[2017-07-21] MEDS: amLODIPine 5 MG TABLET PO SCH (10:27)
--- NOTE | 2017-07-21 14:50 | Internal Med Progress Note ---
Date of Encounter: 07/21/17 Time of Encounter: 11:45 - Assessment and plan (1) Acute and chronic respiratory failure (qyvcg-[id number]) Current Visit: Yes Status: Acute Assessment and plan: Continue steroids IV between down to 40 mg IV every 8 hours. Continue nebs. Wean down oxygen as tolerated.. Qualifiers: Respiratory failure complication: hypoxia Qualified Code(s): J96.21 - Acute and chronic respiratory failure with hypoxia (2) Acute exacerbation of chronic obstructive airways disease Current Visit: No Status: Acute Assessment and plan: Plan is as above (3) History of DVT (deep vein thrombosis) Current Visit: Yes Status: Acute Assessment and plan: Says he was on coumadin up till about 4 weeks ago or so. Not sure why it was stopped. His DVT was about 4 years ago after a long flight. It was his first episode of a blood clot and it was provoked. Adequate treatment would have been 3-6 months. No plans to resume anticoagulation at discharge (4) Secondary polycythemia Current Visit: Yes Status: Acute Assessment and plan: Likely secondary to chronic hypoxia. (5) HTN (hypertension) Current Visit: No Status: Chronic Assessment and plan: Continue Norvasc Qualifiers: Hypertension type: essential hypertension Qualified Code(s): I10 - Essential (primary) hypertension (6) Acute kidney injury Current Visit: No Status: Chronic Assessment and plan: improving. Stop IV fluids. Encourage by mouth intake. (7) Nicotine dependence Current Visit: No Status: Acute Assessment and plan: Nicotine patch Qualifiers: Nicotine product type: cigarettes Substance use status: uncomplicated Qualified Code(s): F17.210 - Nicotine dependence, cigarettes, uncomplicated (8) DVT prophylaxis Current Visit: No Status: Acute Assessment and plan: Heparin subcutaneous - Subjective Interval history: No acute events. The patient says he is feeling better although not back to baseline. Afebrile and is on 2 L to 3 L oxygen. He is on about that at home. Admitted with COPD exacerbation. Recently discharged but left early as he did not want to stay to finish treatment as recommended by the previous hospitalist. - Constitutional Vitals: Temp Pulse Resp BP Pulse Ox 97.9 F 88 18 109/67 95 07/21/17 11:13 07/21/17 11:13 07/21/17 11:13 07/21/17 11:13 07/21/17 11:13 Exam: GEN: NAD CVS: RRR. S1, S2, No m/r/g RESP: Diminished with expiratory wheezes posteriorly. ABD: Soft, NT, ND, +BS EXT: No edema. 2+ DP. No rashes NEURO: Nonfocal Internal Medicine: Result - Labs CBC & Chem 7: 07/21/17 04:20 07/21/17 04:20 Labs: Short CBC 07/21/17 Range/Units 04:20 WBC 9.6 (4.3-11.1) K/mcL Hgb 16.9 D (12.9-16.9) g/dL Hct 52.9 H (37.5-50.1) % Plt Count 104 L (140-400) K/mcL Neutrophils # 9.1 H (1.6-8.9) K/mcL BMP 07/21/17 04:20 Sodium 139 Potassium 4.6 Chloride 105 Carbon Dioxide 26 BUN 32 H Creatinine 1.45 H Glucose 171 H Calcium 8.2 L - ABG Interpretation ABG results: PT/INR, D-dimer PT 13.1 Seconds (9.4-12.1) H 07/20/17 14:51 Consult Discharge Plan - Plan Referrals: Pérez,Neftali Garcia MD [Primary Care Provider] -
[2017-07-21] MEDS: MethylPREDNISolone 40 MG/ML VIAL IVP SCH ×2 (16:35→23:10)
[2017-07-22 05:20] LABS: Basophils % 0.2 %; Hematocrit 50.2 % (37.5-50.1); Hemoglobin 16.2 g/dL (12.9-16.9); Lymphocytes # 0.4 K/mcL (0.6-4.6); Lymphocytes % 2.1 %; Mean Corpuscular HGB Conc 32.3 g/dL (31.6-35.5); Mean Corpuscular Hemoglobin 30.8 pg (28.0-33.3); Mean Corpuscular Volume 95.4 fL (83.0-100.0); Mean Platelet Volume 11.4 fL (9.4-12.4); Monocytes # 0.6 K/mcL (0.0-1.3); Monocytes % 3.1 %; Neutrophils # 17.3 K/mcL (1.6-8.9); Platelet Count 116 K/mcL (140-400); Red Blood Count 5.26 M/mcL (4.19-5.50); Red Cell Distribution Width 13.9 % (11.5-14.5); Segmented Neutrophils % 93.6 %
[2017-07-22] MEDS: *HR* Heparin 5,000 UNIT/ML VIAL SQ SCH ×3 (05:35→22:28)
[2017-07-22 05:57] LABS: BUN/Creatinine Ratio 27 (6-26); Blood Urea Nitrogen 37 mg/dL (8-23); Calcium 8.1 mg/dL (8.6-10.3); Carbon Dioxide 24 mEq/L (23-29); Chloride 110 mEq/L (98-107); Glucose 209 mg/dL (70-105); Osmolality,Calculated 305 (280-300); Potassium 4.4 mEq/L (3.5-5.1); Sodium 140 mEq/L (136-145); eGFR For African Americans > 60 (> 60); eGFR For Non-African Americans 50 (> 60)
[2017-07-22] MEDS: Nicotine 21 MG PATCH.TD24 TD SCH (09:52)
[2017-07-22] MEDS: amLODIPine 5 MG TABLET PO SCH (09:53)
[2017-07-22] MEDS: MethylPREDNISolone 40 MG/ML VIAL IVP SCH ×2 (09:53→22:28)
--- NOTE | 2017-07-22 12:03 | Internal Med Progress Note ---
Date of Encounter: 07/22/17 Time of Encounter: 12:01 - Assessment and plan (1) Acute and chronic respiratory failure (pzkbz-[id number]) Current Visit: Yes Status: Acute Assessment and plan: Continue steroids IV but wean down to every 12 hours. Continue nebs. Wean down oxygen as tolerated.. Possible discharge tomorrow Qualifiers: Respiratory failure complication: hypoxia Qualified Code(s): J96.21 - Acute and chronic respiratory failure with hypoxia (2) Acute exacerbation of chronic obstructive airways disease Current Visit: No Status: Acute Assessment and plan: Plan is as above (3) History of DVT (deep vein thrombosis) Current Visit: Yes Status: Acute Assessment and plan: Says he was on coumadin up till about 4 weeks ago or so. Not sure why it was stopped. His DVT was about 4 years ago after a long flight. It was his first episode of a blood clot and it was provoked. Adequate treatment would have been 3-6 months. No plans to resume anticoagulation at discharge (4) Secondary polycythemia Current Visit: Yes Status: Acute Assessment and plan: Likely secondary to chronic hypoxia. (5) HTN (hypertension) Current Visit: No Status: Chronic Assessment and plan: Continue Norvasc Qualifiers: Hypertension type: essential hypertension Qualified Code(s): I10 - Essential (primary) hypertension (6) Acute kidney injury Current Visit: No Status: Chronic Assessment and plan: improving. Stopped IV fluids. Encourage by mouth intake. (7) Nicotine dependence Current Visit: No Status: Acute Assessment and plan: Nicotine patch Qualifiers: Nicotine product type: cigarettes Substance use status: uncomplicated Qualified Code(s): F17.210 - Nicotine dependence, cigarettes, uncomplicated (8) DVT prophylaxis Current Visit: No Status: Acute Assessment and plan: Heparin subcutaneous - Subjective Interval history: No acute events. The patient says he continues to feel better. Afebrile and is on 2 L to 3 L oxygen at baseline. He is on 4 L here so far. Admitted with COPD exacerbation. Recently discharged but left early as he did not want to stay to finish treatment as recommended by the previous hospitalist. - Constitutional Vitals: Temp Pulse Resp BP Pulse Ox 97.7 F 82 20 130/70 92 07/22/17 07:22 07/22/17 07:22 07/22/17 07:22 07/22/17 07:22 07/22/17 11:47 Exam: GEN: NAD CVS: RRR. S1, S2, No m/r/g RESP: Diminished with expiratory wheezes posteriorly. ABD: Soft, NT, ND, +BS EXT: No edema. 2+ DP. No rashes NEURO: Nonfocal Internal Medicine: Result - Labs CBC & Chem 7: 07/22/17 05:06 07/22/17 05:06 Labs: Short CBC 07/22/17 Range/Units 05:06 WBC 18.5 H D (4.3-11.1) K/mcL Hgb 16.2 (12.9-16.9) g/dL Hct 50.2 H (37.5-50.1) % Plt Count 116 L (140-400) K/mcL Neutrophils # 17.3 H (1.6-8.9) K/mcL BMP 07/22/17 05:06 Sodium 140 Potassium 4.4 Chloride 110 H Carbon Dioxide 24 BUN 37 H Creatinine 1.38 H Glucose 209 H Calcium 8.1 L - ABG Interpretation ABG results: PT/INR, D-dimer PT 13.1 Seconds (9.4-12.1) H 07/20/17 14:51 Consult Discharge Plan - Plan Referrals: Neftali Ortez MD [Primary Care Provider] -
[2017-07-23] MEDS: *HR* Heparin 5,000 UNIT/ML VIAL SQ SCH ×3 (05:28→22:05)
[2017-07-23] MEDS: amLODIPine 5 MG TABLET PO SCH (08:54)
[2017-07-23] MEDS: Nicotine 21 MG PATCH.TD24 TD SCH (08:54)
[2017-07-23] MEDS: MethylPREDNISolone 40 MG/ML VIAL IVP SCH ×2 (08:54→22:05)
--- NOTE | 2017-07-23 13:01 | Internal Med Progress Note ---
Date of Encounter: 07/23/17 Time of Encounter: 11:00 - Assessment and plan (1) Acute and chronic respiratory failure ([id number]) Current Visit: Yes Status: Acute Assessment and plan: Continue steroids IV every 12 hours today and switch to oral tomorrow. Continue nebs. Wean down oxygen as tolerated.. Possible discharge tomorrow Qualifiers: Respiratory failure complication: hypoxia Qualified Code(s): J96.21 - Acute and chronic respiratory failure with hypoxia (2) Acute exacerbation of chronic obstructive airways disease Current Visit: No Status: Acute Assessment and plan: Plan is as above (3) History of DVT (deep vein thrombosis) Current Visit: Yes Status: Acute Assessment and plan: Says he was on coumadin up till about 4 weeks ago or so. Not sure why it was stopped. His DVT was about 4 years ago after a long flight. It was his first episode of a blood clot and it was provoked. Adequate treatment would have been 3-6 months. No plans to resume anticoagulation at discharge (4) Secondary polycythemia Current Visit: Yes Status: Acute Assessment and plan: Likely secondary to chronic hypoxia. (5) Leukocytosis Current Visit: Yes Status: Acute Assessment and plan: Likely secondary to steroids. Afebrile. We will continue to monitor. Qualifiers: Leukocytosis type: unspecified Qualified Code(s): D72.829 - Elevated white blood cell count, unspecified (6) Acute kidney injury Current Visit: No Status: Chronic Assessment and plan: improving. Stopped IV fluids. Encourage by mouth intake. (7) HTN (hypertension) Current Visit: No Status: Chronic Assessment and plan: Continue Norvasc Qualifiers: Hypertension type: essential hypertension Qualified Code(s): I10 - Essential (primary) hypertension (8) Nicotine dependence Current Visit: No Status: Acute Assessment and plan: Nicotine patch Qualifiers: Nicotine product type: cigarettes Substance use status: uncomplicated Qualified Code(s): F17.210 - Nicotine dependence, cigarettes, uncomplicated (9) DVT prophylaxis Current Visit: No Status: Acute Assessment and plan: Heparin subcutaneous - Subjective Interval history: No acute events. Patient feels better. Still having a dry cough. Afebrile and is on 2 L to 3 L oxygen at baseline. He is on 2 L here so far. Admitted with COPD exacerbation. Recently discharged but left early as he did not want to stay to finish treatment as recommended by the previous hospitalist. - Constitutional Vitals: Temp Pulse Resp BP Pulse Ox 98.0 F 88 16 132/72 98 07/23/17 11:00 07/23/17 11:00 07/23/17 11:00 07/23/17 11:00 07/23/17 11:00 Exam: GEN: NAD CVS: RRR. S1, S2, No m/r/g RESP: Diminished with expiratory wheezes posteriorly. ABD: Soft, NT, ND, +BS EXT: No edema. 2+ DP. No rashes NEURO: Nonfocal Internal Medicine: Result - Labs CBC & Chem 7: 07/22/17 05:06 07/22/17 05:06 - ABG Interpretation ABG results: PT/INR, D-dimer PT 13.1 Seconds (9.4-12.1) H 07/20/17 14:51 Consult Discharge Plan - Plan Referrals: Ortez,Neftali Garcia MD [Primary Care Provider] -
[2017-07-24] MEDS: *HR* Heparin 5,000 UNIT/ML VIAL SQ SCH (05:49)
[2017-07-24 06:59] LABS: Basophils % 0.1 %; Hematocrit 52.6 % (37.5-50.1); Hemoglobin 16.7 g/dL (12.9-16.9); Immature Granulocytes % 1.7 % (0-4); Lymphocytes # 0.4 K/mcL (0.6-4.6); Lymphocytes % 2.9 %; Mean Corpuscular HGB Conc 31.7 g/dL (31.6-35.5); Mean Corpuscular Volume 94.6 fL (83.0-100.0); Mean Platelet Volume 11.3 fL (9.4-12.4); Monocytes # 0.8 K/mcL (0.0-1.3); Monocytes % 5.4 %; Neutrophils # 12.5 K/mcL (1.6-8.9); Platelet Count 147 K/mcL (140-400); Red Blood Count 5.56 M/mcL (4.19-5.50); Red Cell Distribution Width 13.8 % (11.5-14.5); Segmented Neutrophils % 89.9 %
[2017-07-24 07:18] LABS: BUN/Creatinine Ratio 30 (6-26); Blood Urea Nitrogen 36 mg/dL (8-23); Carbon Dioxide 27 mEq/L (23-29); Chloride 106 mEq/L (98-107); Glucose 162 mg/dL (70-105); Magnesium 2.3 mg/dL (1.6-2.6); Osmolality,Calculated 298 (280-300); Potassium 4.7 mEq/L (3.5-5.1); Sodium 138 mEq/L (136-145); eGFR For African Americans > 60 (> 60); eGFR For Non-African Americans 58 (> 60)
[2017-07-24] MEDS: amLODIPine 5 MG TABLET PO SCH (08:14)
[2017-07-24] MEDS: MethylPREDNISolone 40 MG/ML VIAL IVP SCH (08:14)
[2017-07-24] MEDS: Nicotine 21 MG PATCH.TD24 TD SCH (08:14)
--- NOTE | 2017-07-24 09:19 | Discharge Summary ---
Date of Encounter: 07/24/17 Time of Encounter: 09:15 - Discharge Diagnosis (1) Acute and chronic respiratory failure (zskgg-[id number]) Priority: Primary Status: Acute Qualifiers: Respiratory failure complication: hypoxia Qualified Code(s): J96.21 - Acute and chronic respiratory failure with hypoxia (2) Acute exacerbation of chronic obstructive airways disease Priority: Primary Status: Acute (3) History of DVT (deep vein thrombosis) Priority: Secondary Status: Acute (4) Secondary polycythemia Priority: Secondary Status: Acute (5) Leukocytosis Priority: Primary Status: Acute Qualifiers: Leukocytosis type: unspecified Qualified Code(s): D72.829 - Elevated white blood cell count, unspecified (6) Acute kidney injury Priority: Primary Status: Chronic (7) HTN (hypertension) Priority: Secondary Status: Chronic Qualifiers: Hypertension type: essential hypertension Qualified Code(s): I10 - Essential (primary) hypertension (8) Nicotine dependence Priority: Secondary Status: Acute Qualifiers: Nicotine product type: cigarettes Substance use status: uncomplicated Qualified Code(s): F17.210 - Nicotine dependence, cigarettes, uncomplicated - Discharge Medications Prescriptions: predniSONE [PredniSONE] See Taper PO TAPER #30 tablet Home Medications: NIFEdipine [Nifedipine ER] 60 mg PO DAILY 07/14/17 [History] Albuterol Sulfate [Ventolin Hfa] 18 gm IH Q4H PRN 30 Days #1 hfa.aer.ad [Rx] Ipratropium/Albuterol Neb [Duoneb] 3 ml IH Q6H inhsol 07/17/17 [Rx] Mag Hydrox/Al Hydrox/Simeth [Maalox] 15 ml PO Q6HR PRN udc 07/17/17 [Rx] Melatonin 6 mg PO HS PRN #30 tablet 07/17/17 [Rx] amLODIPine [Norvasc] 10 mg PO DAILY #30 tablet 07/17/17 [Rx] predniSONE [PredniSONE] See Taper PO TAPER #30 tablet 07/24/17 [Rx] Allergies/Adverse Reactions: 3 Allergy/AdvReac Type Severity Reaction Status Date / Time No Known Allergies Allergy Verified 07/14/17 14:52 Date of admission: 07/20/17 20:50 Primary care physician: Neftali Ortez MD Consults: 07/21/17 02:30 Consult to Nutrition [CONS] Routine Comment: Consulting Provider: NUTRITION Reason for Dietary Consult: MST Score Other Other:: RECENT WEIGHT LOSS; DEPRESSION Consult to Manager Wound Care [CONS] Routine Reason for SW Consult: ASSIST WITH ADVANCED DIRECTIVES. ALSO FAMILY POSSIBLY WANTS SOME PT/REHAB. PT HAS HOME O2. POSIBLY HAD HH SET UP ON LAST D/C-BUT WASN'T BEGUN YET - Patient Status Disposition: Transfer SNF Condition: Fair Overall status at discharge: patient is progressing back to baseline - Discharge Instructions Follow Up With: Neftali Ortez MD [Primary Care Provider] - (Patient will call for an appt. per Neftali Ortez office...) - Diet and Activity Activity: as per physical therapy, increase activity as tolerated, wear oxygen at all times Diet: regular diet Hospital course: Mr. Mcginnis is a 82 year old male with a history of COPD on 2 L continuous, history of DVT used to be on Coumadin, hypertension, tobacco abuse who was discharged a couple days before this admission after treatment for COPD exacerbation with IV steroids, nebulizers, and IV antibiotics. At the time based on the discharge summary the patient was insistent on leaving and the physician who discharged him felt compelled to discharge the patient really as they did not want the patient to leave against medical advise. The patient refused placement and went home where he lives alone with some home care services. The patient realized that he had made a mistake the following morning when he continued to be short of breath and had to go up on his oxygenation. He was short of breath to the point where he needed to come and get evaluated. When he presented to the ED he was noted to be hypoxic with saturation of 90% on 2 L. He was put on oxygen mask and his his oxygen was increased to about 4 L with sats maintained around 92%. His workup in the emergency department showed a white count of 11.6 but he was on steroids in the outpatient setting as well. His hemoglobin was 19.9 that he had consistently elevated hemoglobin past. His platelets were 120 and his creatinine was mildly elevated at 1.69 compared to baseline. The rest of his electrolytes were unremarkable. The patient was admitted for a COPD exacerbation for which the patient was recently discharged and did not finish treatment as he had requested to be discharged early. The patient was again resumed on IV steroids and this was weaned slowly. He was started on IV fluids and gently hydrated for elevated creatinine and his kidney numbers improved and normalized. He was eventually weaned on his chronic oxygen needs. He was recommended rehabilitation and long term facility and was discharged on to finish a prednisone taper. Please note that the patient was on Coumadin up till about 4 weeks ago or so. Not sure why it was stopped. His DVT was about 4 years ago after a long flight. I think it is ok to stop anticoagulation. It was his first episode of a blood clot and it was provoked. Adequate treatment would have been 3-6 months. INR 1.2 - Time Spent with Patient Total time spent providing and/or coordinating discharge services: Greater than 30 minutes - Constitutional Vitals: Temp Pulse Resp BP Pulse Ox 97.8 F 78 18 144/81 94 07/24/17 07:26 07/24/17 07:26 07/24/17 07:26 07/24/17 07:26 07/24/17 07:26 Exam: GEN: NAD CVS: RRR. S1, S2, No m/r/g RESP: Diminished with no wheezes ABD: Soft, NT, ND, +BS EXT: No edema. 2+ DP. No rashes NEURO: Nonfocal
--- NOTE | 2017-07-24 09:37 | Physician Discharge Referral ---
ExtendedCare Referral Info Institutional Level of Care: Skilled - Diagnosis (1) Acute and chronic respiratory failure (aavll-qf-[id number]) Priority: Primary Status: Acute (2) Acute exacerbation of chronic obstructive airways disease Priority: Primary Status: Acute (3) History of DVT (deep vein thrombosis) Priority: Secondary Status: Acute (4) Secondary polycythemia Priority: Secondary Status: Acute (5) Leukocytosis Priority: Primary Status: Acute (6) Acute kidney injury Priority: Primary Status: Chronic (7) HTN (hypertension) Priority: Secondary Status: Chronic (8) Nicotine dependence Priority: Secondary Status: Acute - Transfer Medications Prescriptions: predniSONE [PredniSONE] See Taper PO TAPER #30 tablet Home Medications: NIFEdipine [Nifedipine ER] 60 mg PO DAILY 07/14/17 [History] Albuterol Sulfate [Ventolin Hfa] 18 gm IH Q4H PRN 30 Days #1 hfa.aer.ad [Rx] Ipratropium/Albuterol Neb [Duoneb] 3 ml IH Q6H inhsol 07/17/17 [Rx] Mag Hydrox/Al Hydrox/Simeth [Maalox] 15 ml PO Q6HR PRN udc 07/17/17 [Rx] Melatonin 6 mg PO HS PRN #30 tablet 07/17/17 [Rx] amLODIPine [Norvasc] 10 mg PO DAILY #30 tablet 07/17/17 [Rx] predniSONE [PredniSONE] See Taper PO TAPER #30 tablet 07/24/17 [Rx] Allergies/Adverse Reactions: 3 Allergy/AdvReac Type Severity Reaction Status Date / Time No Known Allergies Allergy Verified 07/14/17 14:52 - Respiratory Orders Smoking Cessation: Smoking cessation has been advised. For more information, call the [place] Tobacco Quit Line at 2-778-GGEY-NOW. - Rehabiliation Orders Rehab Orders: Evaluation for Physical Therapy, Evaluation for Occupational Therapy - Diet Orders Regular CERTIFICATION: I certify that the transfer of the above named patient to an Extended Care Facility is necessary for the continuing treatment of the diagnosis listed. The above information is true and accurate reflection of patient's current condition. Confidential - Redisclosure prohibited without a patient's written consent.
[2017-07-24 10:57] VITALS: BP 130/58
[2017-07-25] MEDS ORDERED: predniSONE 20 MG TABLET PO SCH (09:00)
== END 2017-07-24 13:44 | DRG 190 ==
LOC: EMEROO 12:27 → 2ANU 20:50 → INTOOBSV 20:50 → 2ANU 21:16
PROVIDERS: ADMIT Internal Medicine; ATTEND Registered Nurse

== ENCOUNTER 2017-08-01 18:46 | Inpatient (IN) ==
[2017-08-01] MEDS ORDERED: 0.9 % Sodium Chloride 1,000 ML ONE ×2 (18:52→19:42)
--- NOTE | 2017-08-01 19:21 | Emergency Department Note ---
Disposition Clinical Impression: Renal insufficiency Hypotension Qualifiers: Hypotension type: unspecified hypotension type Qualified Code(s): I95.9 - Hypotension, unspecified Disposition: Admitted As Inpatient Condition: Fair Time of Disposition: 20:33 General Adult HPI - General Chief complaint: ED Seizure Stated complaint: Seizure Time Seen by Provider: 08/01/17 18:48 Source: patient, family Limitations: no limitations Nursing Notes Reviewed: Yes Vital Signs Reviewed: Yes - History of Present Illness HPI Narrative: I did see the patient immediately upon arrival and also spoke with the paramedics and the story is that the patient and since the episode when he was walking out of physical therapy. The patient does not remember the episode but is able to give me a good history otherwise. He denies any pain in the head, neck, chest, abdomen or back. He does not have a numbness or weakness of the extremities, slurred speech, facial droop, confusion. No vomiting or diarrhea. No blood in the urine or stool. Does have rhinorrhea, cough, sneezing. No fever or blurred vision. No bruising of the skin or skin rash. No pain of the extremities. Social history: Stopped smoking one month ago Pain Scale: 0 - Related Data Home Medications Medication Instructions Recorded Confirmed NIFEdipine [Nifedipine ER] 60 mg PO DAILY 07/14/17 08/01/17 Albuterol Sulfate [Ventolin Hfa] 1 puff IH Q4H PRN 08/01/17 08/01/17 Amlodipine Besylate 10 mg PO DAILY 08/01/17 08/01/17 Previous Rx's Medication Instructions Recorded Ipratropium/Albuterol Neb [Duoneb] 3 ml IH Q6H inhsol 07/17/17 Mag Hydrox/Al Hydrox/Simeth 15 ml PO Q6HR PRN udc 07/17/17 [Maalox] Melatonin 6 mg PO HS PRN #30 tablet 07/17/17 predniSONE [PredniSONE] See Taper PO TAPER #30 tablet 07/24/17 Allergies Allergy/AdvReac Type Severity Reaction Status Date / Time No Known Allergies Allergy Verified 07/14/17 14:52 All systems ED: reviewed and negative except as stated. Review of Systems: As Per HPI Past Medical History - Past Medical History Medical history: Reports: COPD, DVT, hypertension Surgical history: Reports: non-contributory Psychiatric history: Reports: no psych history - Social History Smoking Status: Former smoker Smokeless Tobacco Status: No Alcohol use: Reports: none Drug use: Reports: none Physical Exam CONSTITUTIONAL: Well-appearing; well-nourished; A&O X3, in no apparent distress HEAD: Normocephalic; atraumatic. EYES: PERRL, EOMI, no scleral icterus NOSE: The nose is normal in appearance without rhinorrhea Oral: Very dry oral mucous membranes NECK: Supple without rigidity, no LJ RESP: Normal chest excursion with respiration; breath sounds clear and equal bilaterally; no wheezes, rhonchi, or rales CARD: Regular rhythm, without murmurs, rub or gallop ABD: Non-distended; non-tender, soft, without rigidity, rebound or guarding SKIN: Normal for age and race; warm and dry; no apparent lesions, no rash NEUROLOGICAL: Patient is alert and oriented times three. Cranial nerves III- XII are intact. Sensory and motor functions are intact. Strength is 5/5 for flexion and extension in all 4 extremities. Finger to nose testing is equal and normal bilaterally. - General Limitations: no limitations General appearance: alert, in no apparent distress Course Vital Signs Temperature 97.8 F 08/01/17 18:48 Pulse Rate 102 08/01/17 18:48 Respiratory Rate 26 08/01/17 18:48 Blood Pressure 66/45 08/01/17 18:48 O2 Sat by Pulse Oximetry 90 08/01/17 18:48 Temperature 97.8 F 08/01/17 18:48 Pulse Rate 87 08/01/17 19:57 Respiratory Rate 16 08/01/17 21:22 Blood Pressure 90/65 08/01/17 21:22 O2 Sat by Pulse Oximetry 100 08/01/17 19:57 Oxygen Delivery Oxygen Delivery Room Air Medical Decision Making - MDM Narrative Medical decision making narrative: Patient did have a syncopal episode. I do not see evidence of seizure activity currently and the patient does not have a history of seizures based on my review of the previous records. The patient does not have evidence of urinary incontinence or blood in the mouth. Likely had a syncopal episode either from dehydration as he does seem very dry what is could have also been from a arrhythmia. I did review his EKG showing normal sinus rhythm with a rate of 94 without acute ischemic change. I do not see evidence of Brugada syndrome, prolonged QT, hypertrophic cardiomyopathy or WPW. Patient will be admitted. He is receiving IV fluids. His initial blood pressure was 55 systolic and is now up to 90 systolic. Labs and chest x-ray pending. No hemotympanum on exam and he does not have any neck pain with palpation. States does not remember hitting his head. 1922 I have checked back on the patient multiple times. The patient is alert and I did speak with the family as there is a son and daughter and [id number] as well as her weight control lecturer in the room. They state the patient's mental status baseline which is minimally confused and this has been constant for the last several weeks since he began to his episodes follow-up admission for pneumonia and influenza. Abdomen by himself during this time however several days ago was admitted to the extended care facility. His chest x-ray is negative. We are still waiting for urine. I did speak with Dr. Shelton who except the patient for admission. Due to the hypotension and elevated lactate level patient will be started on antibiotics Zosyn and vancomycin as well as receiving blood cultures and the urine has not yet been able to be provided by the patient's of the patient will have a straight catheter. 2031 I went back and see the patient multiple occasions and spoke with the family. He did just give a urine sample and this will be sent for lab. The blood pressure will be rechecked 2145 - Medical Records Medical records reviewed: Yes I reviewed the patient's medical records. - Lab Data Lab results reviewed: Yes I reviewed the patient's lab results. Result diagrams: 08/01/17 19:14 08/01/17 19:14 Lab Results 08/01/17 08/01/17 08/01/17 Range/Units 19:14 19:14 19:14 WBC 15.2 H (4.3-11.1) K/mcL RBC 3.81 L (4.19-5.50) M/mcL Hgb 11.8 L (12.9-16.9) g/dL Hct 37.3 L (37.5-50.1) % MCV 97.9 (83.0-100.0) fL MCH 31.0 (28.0-33.3) pg MCHC 31.6 (31.6-35.5) g/dL RDW 14.9 H (11.5-14.5) % Plt Count 94 L (140-400) K/mcL MPV 10.8 (9.4-12.4) fL Sodium 139 (136-145) mEq/L Potassium 4.8 (3.5-5.1) mEq/L Chloride 107 (98-107) mEq/L Carbon Dioxide 25 (23-29) mEq/L BUN 76 H (8-23) mg/dL Creatinine 1.51 H (0.70-1.30) mg/dL Est GFR ( Amer) 54 L (> 60) Est GFR (Non-Af Amer) 45 L (> 60) BUN/Creatinine Ratio 50 H (6-26) Glucose 185 H (70-105) mg/dL Calculated Osmolality 315 H (280-300) Lactic Acid 2.5 H (0.5-2.2) mmol/L Calcium 7.5 L (8.6-10.3) mg/dL Total Bilirubin 0.6 (0.3-1.0) mg/dL Direct Bilirubin 0.1 (0.0-0.2) mg/dL Indirect Bilirubin 0.5 (0.0-1.2) mg/dL AST 13 (13-39) Units/L ALT 27 (7-52) Units/L Alkaline Phosphatase 40 (34-104) Units/L Serum Total Protein 3.9 L (6.4-8.9) g/dL Albumin 2.3 L (3.5-5.7) g/dL Globulin 1.6 L (2.4-3.5) g/dL Albumin/Globulin Ratio 1.4 (1.1-2.2) - Radiology Data Radiology results reviewed: Yes I reviewed the patient's radiology results. Critical Care Time Critical Care Time: Yes Total Critical Care Time: 30 Attestation: 30 minutes of critical care time were spent with this patient with significant and life-threatening hypotension, medication and fluid administration, discussion with family, review of records
[2017-08-01 19:30] LABS: Hematocrit 37.3 % (37.5-50.1); Hemoglobin 11.8 g/dL (12.9-16.9); Mean Corpuscular HGB Conc 31.6 g/dL (31.6-35.5); Mean Corpuscular Volume 97.9 fL (83.0-100.0); Mean Platelet Volume 10.8 fL (9.4-12.4); Red Blood Count 3.81 M/mcL (4.19-5.50); Red Cell Distribution Width 14.9 % (11.5-14.5)
[2017-08-01 19:31] LABS: Platelet Count 94 K/mcL (140-400)
[2017-08-01] MEDS: 0.9 % Sodium Chloride 1,000 ML IVC SCH ×2 (19:44→22:19)
[2017-08-01 19:53] LABS: Albumin 2.3 g/dL (3.5-5.7); Albumin/Globulin Ratio 1.4 (1.1-2.2); Bilirubin,Direct 0.1 mg/dL (0.0-0.2); Bilirubin,Indirect 0.5 mg/dL (0.0-1.2); Bilirubin,Total 0.6 mg/dL (0.3-1.0); Calcium 7.5 mg/dL (8.6-10.3); Globulin 1.6 g/dL (2.4-3.5); Potassium 4.8 mEq/L (3.5-5.1); Total Protein 3.9 g/dL (6.4-8.9)
[2017-08-01] MEDS ORDERED: Piperacillin/Tazobactam 3.375 GM in Water for inj. (sterile) 20 ML 20 ML IVP ONE (20:35)
[2017-08-01 22:03] LABS: Bilirubin,Urine Negative (Negative); Blood,Urine Negative (Negative); Clarity,Urine Clear (Clear); Color,Urine Yellow (Yellow); Glucose,Urine (UA) Normal (Normal); Ketones,Urine Negative (Negative); Leukocyte Esterase,Urine Negative (Negative); Nitrite,Urine Negative (Negative); Protein,Urine Negative (Neg-Trace); Specific Gravity,Urine 1.014 (1.010-1.025); Urobilinogen,Urine Normal (Normal)
[2017-08-01] MEDS ORDERED: Naloxone 0.4 MG/ML INJ IVP PRN (23:12)
--- NOTE | 2017-08-01 23:12 | Internal Med History&Physical ---
<Alexus Kim - Last Filed: 08/02/17 04:08> Date of Encounter: 08/02/17 Time of Encounter: 21:55 Assessment and Plan (1) Syncope Current visit: Yes Status: Acute Admitted from [facility] for reported "seizure". Patient was about to go to PT/OT and as soon as he sat down in wheel chair he reportedly stiffened up for a few seconds. Immediately after the event he was alert and oriented, no post ictal, no confusion. He stated he does not remember it. No weakness, facial droop, difficulty speaking, nausea, vomiting. Etiology unknown but may be arrhythmia (family stated he has been told he has an arrhythmia), vaso vagal, dehydration EKG: NSR, HR 94, no ST changes CXR- normal BP 98/63 HR 96 plan tele monitoring orthostatics ordered IVF bolus Qualifiers: Qualified Code(s): R55 - Syncope and collapse (2) Leukocytosis Current visit: No Status: Acute WBC 15.2, no obvious source of infection, may be due to recent steroids for COPD exacerbation. Due to lactic acid and elevated WBC will continue antibiotics. U/A: normal CXR: no acute cardiopulmonary process afebrile lactic acid 1.9 (2.5) blood cultures pendings continue zosyn continue vanocomycin IVF bolus Qualifiers: Leukocytosis type: unspecified Qualified Code(s): D72.829 - Elevated white blood cell count, unspecified (3) Acute kidney injury Current visit: No Status: Chronic ALON likely pre-renal Cr 1.51 (baseline 1.2) monitor SCr monitor I&O continue IVF (4) COPD (chronic obstructive pulmonary disease) Current visit: Yes Status: Acute History of COPD on oxygen. Not an exacerbation. SPO2 100% on 2L continue duonebs supplemental oxygen Qualifiers: Qualified Code(s): J44.9 - Chronic obstructive pulmonary disease, unspecified (5) DVT prophylaxis Current visit: No Status: Acute heparin sq Internal Medicine - H&P: HPI Chief complaint: seizure Admitted From: Emergency Dept Plans for Post Hospital Care: Transfer Custodial Facility History of present illness: Mr. Mcginnis is a 82 year old male with a PMH of COPD, hypertension who presented to [facility] from [facility] after he reportedly had a seizure. The patient is alongside his son and daughter. The patient was about to go for physical therapy where after he sat in the wheelchair he reportedly stiffened up for about 30 seconds. Immediately after the event he was alert and oriented, no post ictal, no confusion. He stated he does not remember it. No weakness, facial droop, difficulty speaking, nausea, vomiting. He did not hit his head. The patient reported that he does not remember much of the event. The patient was recently admitted twice, the 1st time for acute bronchitis and influenza, 2nd admission for COPD exacerbation. The patient was sent to an ECF after the 2nd admission for continued PT/OT. Patient's son reported that he has been told he has an arrhythmia. He denied history of seizure, stroke, [place]. He did report a DVT in his lower extremity about 5 years ago that was after a long flight to [place] and then back home again. He was on warfarin for a short period of time. Patient denies fever, chills, trauma/ falls, shortness of breath , coughing, burning with urination, change in urinary frequency, abdominal pain , nausea, vomiting, headache, chest pain. The patient was alert and oriented x3. When asked about code status he stated he wanted to be [id number]. Past Med Surg Social Fam HX - Past Medical History Medical history: COPD, DVT, hypertension Psychiatric history: no psych history - Past Surgical History Surgical History: non-contributory - Social History Smoking Status: Former smoker Smokeless Tobacco Status: No Alcohol use: none Drug use: none - Family History Mother Living Status: Hx Family Cardiac Disorders: No Hx Family Respiratory Disorders: No Hx Family Cancer: No Hx Family GI Disorders: No Hx Family Endocrine Disorder: No Hx Family Neuromuscular Disorders: No Hx Family Neurologic Disorders: No Hx Family HEENT Disorders: No Hx Family Autoimmune Disorders: No Internal Medicine - H&P: Meds NIFEdipine [Nifedipine ER] 60 mg PO DAILY 07/14/17 [History] Ipratropium/Albuterol Neb [Duoneb] 3 ml IH Q6H inhsol 07/17/17 [Rx] Mag Hydrox/Al Hydrox/Simeth [Maalox] 15 ml PO Q6HR PRN udc 07/17/17 [Rx] Melatonin 6 mg PO HS PRN #30 tablet 07/17/17 [Rx] predniSONE [PredniSONE] See Taper PO TAPER #30 tablet 07/24/17 [Rx] Albuterol Sulfate [Ventolin Hfa] 1 puff IH Q4H PRN 08/01/17 [History] Amlodipine Besylate 10 mg PO DAILY 08/01/17 [History] 3 Allergy/AdvReac Type Severity Reaction Status Date / Time No Known Allergies Allergy Verified 07/14/17 14:52 All Systems PM: A 10-system review of systems was performed and is negative for pertinent findings except as documented above in the HPI. - Constitutional Constitutional: no chills, no fever(s), no falls, no lethargy, no weakness - EENT Eyes: no blurry vision, no change in vision - Cardiovascular Cardiovascular ROS IM: no chest pain, no diaphoresis, no lightheadedness, no palpitations - Respiratory Respiratory: no cough, no dyspnea, no wheezing - Gastrointestinal Gastrointestinal: no abdominal pain, no diarrhea, no nausea, no vomiting - Genitourinary Genitourinary ROS male: no difficulty urinating, no dysuria - Neurological Neurological ROS: no behavioral changes, no confusion, no dizziness, no frequent falls, no headache(s) - Psychiatric Psychiatric: no confusion - Constitutional Vitals: Temp Pulse Resp BP Pulse Ox 97.8 F 87 16 90/65 100 08/01/17 18:48 08/01/17 19:57 08/01/17 21:22 08/01/17 21:22 08/01/17 19:57 General appearance: Present: A&O X 3, no acute distress, answers questions appropriately - Head Head exam: Present: atraumatic, normocephalic - Eye Eye exam: Present: conjunctival injection, normal appearance - Respiratory Respiratory exam: Present: decreased breath sounds. Absent: rhonchi, wheezes - Cardiovascular Cardiovascular exam: Present: RRR. Absent: clicks - GI/Abdominal GI/Abdominal exam: Present: normal bowel sounds, soft. Absent: tenderness - Extremities Exam Extremities exam: Absent: calf tenderness - Neurological Exam Neurological exam: Present: alert, oriented X3. Absent: facial droop - Psychiatric Psychiatric exam: Present: normal affect, normal mood. Absent: anxious - Skin Skin exam: Present: dry, intact. Absent: rash Internal Med - H&P Results - Labs CBC & Chem 7: 08/02/17 03:07 08/01/17 19:14 Labs: Urine 08/01/17 Range/Units 21:53 Urine Color Yellow (Yellow) Urine Clarity Clear (Clear) Urine pH 6.0 (5.0-8.0) pH Units Ur Specific [place] 1.014 (1.010-1.025) Urine Protein Negative (Neg-Trace) mg/dL Urine Glucose (UA) Normal (Normal) mg/dL <Eulalio Shelton P - Last Filed: 08/02/17 04:56> Date of Encounter: 08/02/17 Internal Medicine - H&P: HPI History of present illness: Mr. Mcginnis is a 82 year old male All Systems PM: A 10-system review of systems was performed and is negative for pertinent findings except as documented above in the HPI. - Constitutional Vitals: Temp Pulse Resp BP Pulse Ox 97.1 F L 95 18 108/72 98 08/02/17 04:29 08/02/17 04:29 08/02/17 04:29 08/02/17 04:29 08/02/17 04:29 Internal Med - H&P Results - Labs CBC & Chem 7: 08/02/17 03:07 08/02/17 03:07 Labs: Short CBC 08/02/17 Range/Units 03:07 WBC 11.9 H (4.3-11.1) K/mcL Hgb 10.1 L D (12.9-16.9) g/dL Hct 32.3 L (37.5-50.1) % Plt Count 79 L (140-400) K/mcL BMP 08/02/17 03:07 Sodium 140 Potassium 4.9 Chloride 111 H Carbon Dioxide 26 BUN 69 H Creatinine 1.21 Glucose 103 Calcium 7.4 L Urine 08/01/17 Range/Units 21:53 Urine Color Yellow (Yellow) Urine Clarity Clear (Clear) Urine pH 6.0 (5.0-8.0) pH Units Ur Specific [place] 1.014 (1.010-1.025) Urine Protein Negative (Neg-Trace) mg/dL Urine Glucose (UA) Normal (Normal) mg/dL - Attending Attestation I examined this patient and my medical decision-making was reviewed with the Resident Physician. I agree with the documented findings, disposition and treatment plan as described except to the extent set forth below. 82/male Resident of long-term. Admitted with seizure-like activity which was reported from a nursing facility. No seizure-like activity noted in the hospital/emergency room. Patient is profusely dehydrated. Elevated lactic acid/elevated white blood cell count:? Source of infection. Plan: IV fluids/hydration. Color with antibiotics. Workup for syncope. I have examined this patient in the emergency room #1. Patient's family member was at bedside. Long discussion with the patient's son/daughter. Plan of care explained to them.
[2017-08-02] MEDS ORDERED: Ipratropium/Albuterol Neb 3 ML IH PRN (00:29)
[2017-08-02] MEDS ORDERED: 0.9 % Sodium Chloride 1,000 ML IVC SCH (00:45)
[2017-08-02 03:47] LABS: Red Cell Distribution Width 15.1 % (11.5-14.5)
[2017-08-02 03:49] LABS: Hematocrit 32.3 % (37.5-50.1); Hemoglobin 10.1 g/dL (12.9-16.9); Immature Platelets 3.7 % (1.1-6.1); Mean Corpuscular HGB Conc 31.3 g/dL (31.6-35.5); Mean Corpuscular Hemoglobin 30.6 pg (28.0-33.3); Mean Corpuscular Volume 97.9 fL (83.0-100.0); Red Blood Count 3.3 M/mcL (4.19-5.50)
[2017-08-02] MEDS ORDERED: 0.9 % Sodium Chloride 1,000 ML IVC ONE (04:07)
[2017-08-02 04:28] LABS: BUN/Creatinine Ratio 57 (6-26); Blood Urea Nitrogen 69 mg/dL (8-23); Calcium 7.4 mg/dL (8.6-10.3); Carbon Dioxide 26 mEq/L (23-29); Chloride 111 mEq/L (98-107); Glucose 103 mg/dL (70-105); Osmolality,Calculated 310 (280-300); Potassium 4.9 mEq/L (3.5-5.1); Sodium 140 mEq/L (136-145); eGFR For Non-African Americans 58 (> 60)
[2017-08-02] MEDS ORDERED: Melatonin 3 MG TABLET PO PRN (04:53)
[2017-08-02] MEDS ORDERED: Mag Hydrox/Al Hydrox/Simeth 30 ML UDC PO PRN (04:53)
[2017-08-02] MEDS ORDERED: 0.9 % Sodium Chloride 500 ML IVC ONE (05:19)
[2017-08-02] MEDS ORDERED: *HR* Heparin 5,000 UNIT/ML VIAL SQ SCH (06:00)
[2017-08-02] MEDS ORDERED: Piperacillin/Tazobactam 3.375 GM in 0.9 % Sodium Chloride Mini Bag 100 ML IVPB SCH (06:00)
[2017-08-02] MEDS ORDERED: 0.9 % Sodium Chloride 1,000 ML ONE (07:57)
[2017-08-02] MEDS ORDERED: amLODIPine 5 MG TABLET PO SCH (09:00)
[2017-08-02] MEDS ORDERED: NIFEdipine XL (24 HR) 60 MG TAB.ER.24 PO SCH (09:00)
[2017-08-02] MEDS: Ipratropium/Albuterol Neb 3 ML IH SCH ×6 (10:54→23:44)
[2017-08-02 11:57] LABS: INR 1.3
--- NOTE | 2017-08-02 12:34 | Neurology - Consult Note ---
Date of Encounter: 08/02/17 Time of Encounter: 12:27 Assessment and Plan (1) Seizure Current Visit: Yes Status: Acute Likely not a true epileptic seizure due to him having significant medical problems and this may well be related to a syncopal episodes than seizure. He is fully awake now and demonstrated no focal neurological deficits, but generalized weakness. Will do at least basic work up including CT of head and EEG. Will not consider antiepileptic therapy at this time. Please continue medical and supportive care History of Present Illness Chief complaint: stiffening and possible seizure HPI: Mr. Mcginnis is a 82 year old male with PMH significant for HTN, paroxysmal atrital fibrillation, PAD who developed an episode of stiffening up in sitting position while getting PT. He was in in alf doing PT. Per medical records he suddenly stiffened up for about 20 seconds and he has no recollection of the spell. He feels weak and did have an. elevated white blood cell count. Reportedly, there was no significant post-ictal phenomenon and no tongue biting or urinary incontinence. Patient has no prior history of epilepsy. Currently patient is lying in bed wide awake but relates that he is not feeling good and is very weak. No focal neurological deficits. Denies headaches. Past Med Surg Social Fam HX - Past Medical History Medical history: COPD, DVT, hypertension Psychiatric history: no psych history - Past Surgical History Surgical History: non-contributory - Social History Smoking Status: Former smoker Smokeless Tobacco Status: No Alcohol use: none Drug use: none - Family History Mother Living Status: Hx Family Cardiac Disorders: No Hx Family Respiratory Disorders: No Hx Family Cancer: No Hx Family GI Disorders: No Hx Family Endocrine Disorder: No Hx Family Neuromuscular Disorders: No Hx Family Neurologic Disorders: No Hx Family HEENT Disorders: No Hx Family Autoimmune Disorders: No Medications and Allergies NIFEdipine [Nifedipine ER] 60 mg PO DAILY 07/14/17 [History] Ipratropium/Albuterol Neb [Duoneb] 3 ml IH Q6H inhsol 07/17/17 [Rx] Mag Hydrox/Al Hydrox/Simeth [Maalox] 15 ml PO Q6HR PRN udc 07/17/17 [Rx] Melatonin 6 mg PO HS PRN #30 tablet 07/17/17 [Rx] predniSONE [PredniSONE] See Taper PO TAPER #30 tablet 07/24/17 [Rx] Albuterol Sulfate [Ventolin Hfa] 1 puff IH Q4H PRN 08/01/17 [History] Amlodipine Besylate 10 mg PO DAILY 08/01/17 [History] 3 Allergy/AdvReac Type Severity Reaction Status Date / Time No Known Allergies Allergy Verified 07/14/17 14:52 All Systems: The remainder of the systems were reviewed and are negative Physical Examination - Vital Signs Vital Signs: Initial Vital Signs Temp Pulse Resp BP Pulse Ox 97.8 F 102 26 66/45 90 08/01/17 18:48 08/01/17 18:48 08/01/17 18:48 08/01/17 18:48 08/01/17 18:48 - Constitutional General appearance: chronically ill - Neurologic Detailed motor examination: full strength in all major muscle groups Motor examination - right side: 5/5: deltoids, biceps, triceps, wrist flexion, wrist extension, bobbin winder, hip flexors, tibialis Anterior, quadriceps, toe extension (EHL), plantarflexion Motor examination - left side: 5/5: deltoids, biceps, triceps, wrist flexion, wrist extension, hip flexors, bobbin winder, quadriceps, tibialis Anterior, toe extension (EHL), plantarflexion Mental Status Examination: awake, alert, oriented to person, oriented to place, oriented to time, follows commands appropriately, answers questions appropriately, no agnosia, no aphasia, no aproxia Cranial nerve examination: PERRL, EOMI, visual hess intact, corneal reflexes brisk symmetrically, sensory to face intact, mastication intact, no facial asymmetry is present, no dysarthria, hearing is intact symmetrically, soft palate elevates bilaterally upon phonation, gag reflex intact, flexes SCM and trapezius muscles symmetrically with full power, tongue protrudes midline, no atrophy or facial fasiculations present Cerebellar examination: no dysmetria, performs finger to nose and heel to [place] symmetrically without ataxia, no gait ataxia, no truncal ataxia, no difficulty with rapid alternating movements Results - Laboratory Findings CBC and BMP: 08/02/17 03:07 08/02/17 03:07 Abnormal lab findings: Abnormal lab results WBC 11.9 K/mcL (4.3-11.1) H 08/02/17 03:07 RBC 3.30 M/mcL (4.19-5.50) L 08/02/17 03:07 Hgb 10.1 g/dL (12.9-16.9) L D 08/02/17 03:07 Hct 32.3 % (37.5-50.1) L 08/02/17 03:07 MCHC 31.3 g/dL (31.6-35.5) L 08/02/17 03:07 RDW 15.1 % (11.5-14.5) H 08/02/17 03:07 Plt Count 79 K/mcL (140-400) L 08/02/17 03:07 PT 14.0 Seconds (9.4-12.1) H 08/02/17 11:15 Chloride 111 mEq/L (98-107) H 08/02/17 03:07 BUN 69 mg/dL (8-23) H 08/02/17 03:07 Est GFR (Non-Af Amer) 58 (> 60) L 08/02/17 03:07 BUN/Creatinine Ratio 57 (6-26) H 08/02/17 03:07 Calculated Osmolality 310 (280-300) H 08/02/17 03:07 Calcium 7.4 mg/dL (8.6-10.3) L 08/02/17 03:07 Serum Total Protein 3.9 g/dL (6.4-8.9) L 08/01/17 19:14 Albumin 2.3 g/dL (3.5-5.7) L 08/01/17 19:14 Globulin 1.6 g/dL (2.4-3.5) L 08/01/17 19:14 Stool Occult Blood Positive (Negative) A 08/02/17 10:12 Consult Discharge Plan - Plan Referrals: Neftali Ortez MD [Primary Care Provider] -
[2017-08-02 12:36] LABS: Hematocrit 21.6 % (37.5-50.1); Hemoglobin 6.6 g/dL (12.9-16.9)
--- NOTE | 2017-08-02 12:54 | Gastroenterology Consult Note ---
<Jocelyne Anguiano - Last Filed: 08/02/17 13:01> Date of Encounter: 08/02/17 Time of Encounter: 10:30 - Assessment and plan (1) Melena Current Visit: Yes Status: Acute Assessment and plan: Pt likely has upper GI bleed. He will need urgent EGD once BP and HR are stabalized. Stat H&H ordered. 2 units prbcs ordered, INR ordered and Dr Ventura and GI/Pulm notified. Discussed plan with pt but he states he wanted his son to give consent. Spoke with pts son Brant on the phone and consent obtained. He was updated on pts condition and questions answered. Also spoke with Dr Garcia regarding urgent EGD. (2) Anemia Current Visit: Yes Status: Acute Assessment and plan: Likely upper GI bleed. Transfuse as needed, EGD for bleeding control. Prognosis is very guarded. - Time Spent With Patient Total time spent is greater than 50% in coordination of care (as documented) at patient's floor/unit and/or counseling patient: GI History of Present Illness - Data of Consult Patient: new to practice Consult date: 08/02/17 Requesting Physician: Dimas Hernandez MD - Consult Narrative Reason for consult: melena History of present illness: Mr. Mcginnis is a 82 year old male with a pmHX of HTN, paroxysmal atrital fibrillation, PAD who developed an episode of stiffening up/possible seizure like activity during physical therapy at [facility]. in sitting position while getting PT. Reportedly, there was no significant post-ictal phenomenon and no tongue biting or urinary incontinence. Patient has no prior history of epilepsy. He had large black stool this am. He is also hypotensive and tachycardic and is receiving fluid bolus at this time. He reports he just feels weak and short of breath. He denies abdominal pain but is very tender to palpation. He denies diarrhea or bloody/tarry stools at [place]. He denies fever or chills. He denies nausea or vomiting but states he "just feels bad". 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 Review of labs show a Hgb of 16 on 07/24/17 is 10.1 this am. Past Med Surg Social Fam HX - Past Medical History Medical history: COPD, DVT, hypertension Psychiatric history: no psych history - Past Surgical History Surgical History: non-contributory - Social History Smoking Status: Former smoker Smokeless Tobacco Status: No Alcohol use: none Drug use: none - Family History Mother Living Status: Hx Family Cardiac Disorders: No Hx Family Respiratory Disorders: No Hx Family Cancer: No Hx Family GI Disorders: No Hx Family Endocrine Disorder: No Hx Family Neuromuscular Disorders: No Hx Family Neurologic Disorders: No Hx Family HEENT Disorders: No Hx Family Autoimmune Disorders: No Review of Systems: GI: as per [facility]: denies fever or chills EYES: denies yellow discoloration ENT: denies pain with swallowing or difficulty swallowing CARDIO: denies chest pain, palpitations RESP: Shortness of breath with exertion : denies change in color of urine NEURO: weakness HEME: bruising to bilateral arms MS: chronic back and joint pain. DERM: denies rash or itching PSYCH: anxiety and depression - Constitutional Vitals: Temp Pulse Resp BP Pulse Ox 97.3 F L 100 36 110/95 96 08/02/17 12:43 08/02/17 12:43 08/02/17 12:43 08/02/17 12:43 08/02/17 12:43 Exam: CONSTITUTIONAL:~alert, appears short of breath.~HEAD:~normocephalic.~EYES:~no jaundice.~NECK:~no obvious swelling.~HEART:~regular rate and rhythm, tachy 109, no murmurs.~LUNGS:~bilateral fair air entry.~ABDOMEN:~non distended, soft, diffusely tender, no masses pulpable, no organomegaly.~RECTAL EXAM:~Deferred.~ EXTREMITIES:~no clubbing, cyanosis or edema.~SKIN:~pallor noted, no stigmata of chronic liver disease.~NEUROLOGIC:~no obvious focal defect.~~~~ Results - Labs CBC & Chem 7: 08/02/17 12:07 08/02/17 03:07 Labs: Last Result Calcium 7.4 mg/dL (8.6-10.3) L 08/02/17 03:07 Stool Occult Blood Positive (Negative) A 08/02/17 10:12 Entire Visit Hgb 6.6 g/dL (12.9-16.9) L D 08/02/17 12:07 Hct 21.6 % (37.5-50.1) L 08/02/17 12:07 PT 14.0 Seconds (9.4-12.1) H 08/02/17 11:15 Total Bilirubin 0.6 mg/dL (0.3-1.0) 08/01/17 19:14 AST 13 Units/L (13-39) 08/01/17 19:14 ALT 27 Units/L (7-52) 08/01/17 19:14 - ABG ABG results: PT/INR, D-dimer PT 14.0 Seconds (9.4-12.1) H 08/02/17 11:15 - Impressions Impressions Chest X-Ray 08/02/17 10:24 IMPRESSION: Stable exam without evidence for acute cardiopulmonary process. D/ / 08/02/2017 10:54:59 Richard Lopes MD / [facility] Interpreting Provider: Richard Lopes MD Consult Discharge Plan - Plan Referrals: Neftali Ortez MD [Primary Care Provider] - <Beena Venturaed - Last Filed: 08/02/17 14:23> Date of Encounter: 08/02/17 Time of Encounter: 12:30 - Time Spent With Patient Total time spent is greater than 50% in coordination of care (as documented) at patient's floor/unit and/or counseling patient: GI History of Present Illness - Data of Consult Requesting Physician: Dimas Hernandez MD - Consult Narrative History of present illness: Mr. Mcginnis is a 82 year old male - Constitutional Vitals: Temp Pulse Resp BP Pulse Ox 97.3 F L 100 36 110/95 96 08/02/17 12:43 08/02/17 12:43 08/02/17 12:43 08/02/17 12:43 08/02/17 12:43 Results - Labs CBC & Chem 7: 08/02/17 12:07 08/02/17 03:07 Labs: Last Result Calcium 7.4 mg/dL (8.6-10.3) L 08/02/17 03:07 Stool Occult Blood Positive (Negative) A 08/02/17 10:12 Entire Visit Hgb 6.6 g/dL (12.9-16.9) L D 08/02/17 12:07 Hct 21.6 % (37.5-50.1) L 08/02/17 12:07 PT 14.0 Seconds (9.4-12.1) H 08/02/17 11:15 Total Bilirubin 0.6 mg/dL (0.3-1.0) 08/01/17 19:14 AST 13 Units/L (13-39) 08/01/17 19:14 ALT 27 Units/L (7-52) 08/01/17 19:14 - ABG ABG results: PT/INR, D-dimer PT 14.0 Seconds (9.4-12.1) H 08/02/17 11:15 - Impressions Impressions Chest X-Ray 08/02/17 10:24 IMPRESSION: Stable exam without evidence for acute cardiopulmonary process. D/ / 08/02/2017 10:54:59 Richard Lopes MD / [facility] Interpreting Provider: Richard Lopes MD - Attending Attestation I examined this patient and my medical decision-making was reviewed with the WILL CALL CLERK. I agree with the documented findings, disposition and treatment plan as described except to the extent set forth below. Patient is currently being seen. He is tachypneic, blood pressure is low. Blood bank was called and one unit of stat blood was given. Another unit to be given. Urgent EGD for possible active bleeding ulcer. Pt will be transferred to the ICU
--- NOTE | 2017-08-02 12:54 | Anesthesia Evaluation PreOp ---
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 History: Syncope (admitted 08/01 for evaluation of Syncope/possible Sz) Other Medical History: Renal (ALON), Bleeding (Hx DVT after long Airplane flight 2012) Alcohol Use: none Drug use: none Medications and Allergies NIFEdipine [Nifedipine ER] 60 mg PO DAILY 07/14/17 [History] Ipratropium/Albuterol Neb [Duoneb] 3 ml IH Q6H inhsol 07/17/17 [Rx] Mag Hydrox/Al Hydrox/Simeth [Maalox] 15 ml PO Q6HR PRN udc 07/17/17 [Rx] Melatonin 6 mg PO HS PRN #30 tablet 07/17/17 [Rx] predniSONE [PredniSONE] See Taper PO TAPER #30 tablet 07/24/17 [Rx] Albuterol Sulfate [Ventolin Hfa] 1 puff IH Q4H PRN 08/01/17 [History] Amlodipine Besylate 10 mg PO DAILY 08/01/17 [History] 3 Allergy/AdvReac Type Severity Reaction Status Date / Time No Known Allergies Allergy Verified 07/14/17 14:52 - Meds/Allergy Pre-op Review Medications Reviewed: Yes Allergies Reviewed: Yes Beta Blockers on Current Med List: No Anesthesia Results - Labs 08/02/17 12:07 08/02/17 03:07 Laboratory Results WBC 11.9 K/mcL (4.3-11.1) H 08/02/17 03:07 RBC 3.30 M/mcL (4.19-5.50) L 08/02/17 03:07 Hgb 6.6 g/dL (12.9-16.9) L D 08/02/17 12:07 Hct 21.6 % (37.5-50.1) L 08/02/17 12:07 MCV 97.9 fL (83.0-100.0) 08/02/17 03:07 MCH 30.6 pg (28.0-33.3) 08/02/17 03:07 MCHC 31.3 g/dL (31.6-35.5) L 08/02/17 03:07 RDW 15.1 % (11.5-14.5) H 08/02/17 03:07 Plt Count 79 K/mcL (140-400) L 08/02/17 03:07 MPV 11.0 fL (9.4-12.4) 08/02/17 03:07 Immature Plt Fraction 3.7 % (1.1-6.1) 08/02/17 03:07 PT 14.0 Seconds (9.4-12.1) H 08/02/17 11:15 INR 1.3 08/02/17 11:15 Sodium 140 mEq/L (136-145) 08/02/17 03:07 Potassium 4.9 mEq/L (3.5-5.1) 08/02/17 03:07 Chloride 111 mEq/L (98-107) H 08/02/17 03:07 Carbon Dioxide 26 mEq/L (23-29) 08/02/17 03:07 BUN 69 mg/dL (8-23) H 08/02/17 03:07 Creatinine 1.21 mg/dL (0.70-1.30) 08/02/17 03:07 Est GFR ( Amer) > 60 (> 60) 08/02/17 03:07 Est GFR (Non-Af Amer) 58 (> 60) L 08/02/17 03:07 BUN/Creatinine Ratio 57 (6-26) H 08/02/17 03:07 Glucose 103 mg/dL (70-105) 08/02/17 03:07 Calculated Osmolality 310 (280-300) H 08/02/17 03:07 Lactic Acid 1.9 mmol/L (0.5-2.2) 08/02/17 00:48 Calcium 7.4 mg/dL (8.6-10.3) L 08/02/17 03:07 Total Bilirubin 0.6 mg/dL (0.3-1.0) 08/01/17 19:14 Direct Bilirubin 0.1 mg/dL (0.0-0.2) 08/01/17 19:14 Indirect Bilirubin 0.5 mg/dL (0.0-1.2) 08/01/17 19:14 AST 13 Units/L (13-39) 08/01/17 19:14 ALT 27 Units/L (7-52) 08/01/17 19:14 Alkaline Phosphatase 40 Units/L (34-104) 08/01/17 19:14 Serum Total Protein 3.9 g/dL (6.4-8.9) L 08/01/17 19:14 Albumin 2.3 g/dL (3.5-5.7) L 08/01/17 19:14 Globulin 1.6 g/dL (2.4-3.5) L 08/01/17 19:14 Albumin/Globulin Ratio 1.4 (1.1-2.2) 08/01/17 19:14 Urine Color Yellow (Yellow) 08/01/17 21:53 Urine Clarity Clear (Clear) 08/01/17 21:53 Urine pH 6.0 pH Units (5.0-8.0) 08/01/17 21:53 Ur Specific [place] 1.014 (1.010-1.025) 08/01/17 21:53 Urine Protein Negative mg/dL (Neg-Trace) 08/01/17 21:53 Urine Glucose (UA) Normal mg/dL (Normal) 08/01/17 21:53 Urine Ketones Negative mg/dL (Negative) 08/01/17 21:53 Urine Blood Negative (Negative) 08/01/17 21:53 Urine Nitrite Negative (Negative) 08/01/17 21:53 Urine Bilirubin Negative (Negative) 08/01/17 21:53 Urine Urobilinogen Normal mg/dL (Normal) 08/01/17 21:53 Ur Leukocyte Esterase Negative (Negative) 08/01/17 21:53 Stool Occult Blood Positive (Negative) A 08/02/17 10:12 Specimen Rejected Miscellaneous 08/02/17 11:43 Blood Type B POSITIVE 08/02/17 11:15 Antibody Screen NEGATIVE 08/02/17 11:15 Impressions Chest X-Ray 08/02/17 10:24 IMPRESSION: Stable exam without evidence for acute cardiopulmonary process. D/ / 08/02/2017 10:54:59 Richard Lopes MD / [facility] Interpreting Provider: Richard Lopes MD Anesthesia Exam Vital Signs Temp Pulse Resp BP BP BP Pulse Ox 08/02/17 12:43 97.3 F L 100 36 110/95 96 08/02/17 10:59 97.3 F L 96 23 94/58 99 08/02/17 10:54 20 99 08/02/17 07:51 94 08/02/17 07:45 75/43 67/39 08/02/17 07:28 97.5 F L 104 24 75/43 94 08/02/17 04:29 97.1 F L 95 18 108/72 98 08/02/17 00:35 97.0 F L 70 22 105/64 96 08/01/17 21:22 16 90/65 08/01/17 19:57 87 18 90/60 100 08/01/17 18:57 106 18 93/65 96 08/01/17 18:48 97.8 F 102 26 66/45 90 Intake and Output 08/01/17 08/02/17 08/02/17 23:59 07:59 15:59 Intake Total 1999 0 / 0 Output Total 700 / 700 Balance 1999 -700 / -700 Intake: IV Fluids 1999 0 / 0 0.9 % Sodium Chloride 1,000 ML 1000 / 1000 @ 0 mls/hr .ROUTE .STK-MED ONE Rx#:[id number] 0.9 % Sodium Chloride 1,000 ML 1000 / 1000 0 / 0 @ 100 mls/hr IVC .Q10H [facility] Rx#: [id number] Output: Urine 700 / 700 Other: Stool Size Large Stool Consistency formed Stool Color Black # Voids 1 # Bowel Movements 1 Weight 72.575 kg Blood Glucose* 160 Height: 5'9" Weight: 167# BMI = 23.6 NPO (# of Hours): MNOC - HEENT Pupil (Motor): Pupils equal, EOMI Mallampati: II Teeth: Edentulous Oral Opening: Greater than 3 - PIPE COVERING MOLDER LOC: Oriented PIPE COVERING MOLDER Motor: Normal RUE, Normal LUE, Normal RLE, Normal LLE, Normal Face PIPE COVERING MOLDER Sensory: Normal: RUE, LUE, RLE, LLE, Face - Cardiac Rhythm: Regular Murmur: None - Pulmonary Breath Sounds: bilateral Clear Respiratory Effort: Symmetrical Anesthesia Assess/Plan ASA Score: 3 (COPD, Syncope, HTN,) Modified Tory Scale for Level of Consciousness: Cooperative, oriented, and tranquil Anesthetic Plan: MAC Monitoring Plan: Standard Monitors Recovery Plan: Other Anes Supervising Prov Stmt: PT seen/evaluated, R&B Discussed, questions answered and consent obtained. Cristóabl Butterfield MD
[2017-08-02] MEDS ORDERED: *HR* Propofol 200 MG/20 ML VIAL IVP ONE (13:07)
[2017-08-02] MEDS ORDERED: *HR* Etomidate 20 MG/10 ML AMPUL IVP ONE (13:09)
[2017-08-02] MEDS ORDERED: *HR* EPINEPHrine 1 MG/10 ML SYRINGE INTRATRACH PRN (13:54)
[2017-08-02] MEDS ORDERED: Simethicone 40 MG/0.6 ML MLS IR ONE (13:54)
[2017-08-02] MEDS ORDERED: Pantoprazole 40 MG VIAL IVP ONE (13:55)
[2017-08-02] MEDS ORDERED: Furosemide 20 MG/2 ML VIAL IVP ONE (14:01)
[2017-08-02] MEDS ORDERED: Heparin 1,000 UNITS/500 mL 500 ML ONE (14:14)
[2017-08-02] MEDS ORDERED: Pantoprazole 80 MG in 0.9 % Sodium Chloride 50 ML IVC ONE (14:15)
[2017-08-02] MEDS: Pantoprazole 40 MG in 0.9 % Sodium Chloride Mini Bag 100 ML IVC SCH ×2 (14:28→20:01)
[2017-08-02 14:36] LABS: ABG Base Excess -13 mEq/L (-2 to 3); ABG HCO3 13 mEq/L (21-27); ABG Oxygen Saturation 99 % (95-98); ABG PCO2 32 mmHg (35-45); ABG PH 7.24 pH Units (7.32-7.45); ABG PO2 166 mmHg (85-104); ABG TCO2 14 mEq/L (20-26)
[2017-08-02 16:10] LABS: ABG Base Excess -12 mEq/L (-2 to 3); ABG HCO3 14 mEq/L (21-27); ABG Oxygen Saturation 99 % (95-98); ABG PCO2 28 mmHg (35-45); ABG PH 7.29 pH Units (7.32-7.45); ABG PO2 132 mmHg (85-104); ABG TCO2 14 mEq/L (20-26)
[2017-08-02] MEDS ORDERED: Dexmedetomidine HCl 400 MCG/100 ML MLS IVC ONE (16:29)
[2017-08-02] MEDS ORDERED: Furosemide 40 MG/4 ML VIAL IVP ONE (16:51)
--- NOTE | 2017-08-02 16:53 | Pulmonology Consult Note ---
Date of Encounter: 08/02/17 Time of Encounter: 16:53 Past Med Surg Social Fam HX - Past Medical History Medical history: COPD, DVT, hypertension Psychiatric history: no psych history - Past Surgical History Surgical History: non-contributory - Social History Smoking Status: Former smoker Smokeless Tobacco Status: No Alcohol use: none Drug use: none - Family History Mother Living Status: Hx Family Cardiac Disorders: No Hx Family Respiratory Disorders: No Hx Family Cancer: No Hx Family GI Disorders: No Hx Family Endocrine Disorder: No Hx Family Neuromuscular Disorders: No Hx Family Neurologic Disorders: No Hx Family HEENT Disorders: No Hx Family Autoimmune Disorders: No Medications and Allergies NIFEdipine [Nifedipine ER] 60 mg PO DAILY 07/14/17 [History] Ipratropium/Albuterol Neb [Duoneb] 3 ml IH Q6H inhsol 07/17/17 [Rx] Mag Hydrox/Al Hydrox/Simeth [Maalox] 15 ml PO Q6HR PRN udc 07/17/17 [Rx] Melatonin 6 mg PO HS PRN #30 tablet 07/17/17 [Rx] predniSONE [PredniSONE] See Taper PO TAPER #30 tablet 07/24/17 [Rx] Albuterol Sulfate [Ventolin Hfa] 1 puff IH Q4H PRN 08/01/17 [History] Amlodipine Besylate 10 mg PO DAILY 08/01/17 [History] 3 Allergy/AdvReac Type Severity Reaction Status Date / Time No Known Allergies Allergy Verified 07/14/17 14:52 All Systems: The remainder of the systems were reviewed and are negative Physical Examination Vital Signs: Vital Signs, Last 4 Hours Temp Pulse Resp BP Pulse Ox 08/02/17 16:36 36 142/74 100 08/02/17 16:29 38 100 08/02/17 15:56 96.2 F L 101 36 131/77 100 08/02/17 15:10 97.3 F L 94 34 153/77 99 Results - Laboratory Findings CBC and BMP: 08/02/17 12:07 08/02/17 03:07 ABG ABG pH 7.29 pH Units (7.32-7.45) L 08/02/17 16:05 ABG pCO2 28 mmHg (35-45) L 08/02/17 16:05 ABG pO2 132 mmHg (85-104) H 08/02/17 16:05 ABG O2 Saturation 99 % (95-98) H 08/02/17 16:05 PT/INR, D-dimer PT 14.0 Seconds (9.4-12.1) H 08/02/17 11:15 Abnormal lab findings: Abnormal lab results WBC 11.9 K/mcL (4.3-11.1) H 08/02/17 03:07 RBC 3.30 M/mcL (4.19-5.50) L 08/02/17 03:07 Hgb 6.6 g/dL (12.9-16.9) L D 08/02/17 12:07 Hct 21.6 % (37.5-50.1) L 08/02/17 12:07 MCHC 31.3 g/dL (31.6-35.5) L 08/02/17 03:07 RDW 15.1 % (11.5-14.5) H 08/02/17 03:07 Plt Count 79 K/mcL (140-400) L 08/02/17 03:07 PT 14.0 Seconds (9.4-12.1) H 08/02/17 11:15 ABG pH 7.29 pH Units (7.32-7.45) L 08/02/17 16:05 ABG pCO2 28 mmHg (35-45) L 08/02/17 16:05 ABG pO2 132 mmHg (85-104) H 08/02/17 16:05 ABG HCO3 14 mEq/L (21-27) L 08/02/17 16:05 ABG Total CO2 14 mEq/L (20-26) L 08/02/17 16:05 ABG O2 Saturation 99 % (95-98) H 08/02/17 16:05 ABG Base Excess -12 mEq/L (-2 to 3) L 08/02/17 16:05 Chloride 111 mEq/L (98-107) H 08/02/17 03:07 BUN 69 mg/dL (8-23) H 08/02/17 03:07 Est GFR (Non-Af Amer) 58 (> 60) L 08/02/17 03:07 BUN/Creatinine Ratio 57 (6-26) H 08/02/17 03:07 Calculated Osmolality 310 (280-300) H 08/02/17 03:07 Calcium 7.4 mg/dL (8.6-10.3) L 08/02/17 03:07 Serum Total Protein 3.9 g/dL (6.4-8.9) L 08/01/17 19:14 Albumin 2.3 g/dL (3.5-5.7) L 08/01/17 19:14 Globulin 1.6 g/dL (2.4-3.5) L 08/01/17 19:14 Stool Occult Blood Positive (Negative) A 08/02/17 10:12 - Clinical Findings Intake & Output: Intake & Output 08/02/17 08/02/17 08/02/17 07:59 15:59 23:59 Intake Total 0 / 0 0 / 0 Output Total 300 / 700 Balance -300 / -700 0 / 0 Consult Discharge Plan - Plan Referrals: Neftali Ortez MD [Primary Care Provider] -
[2017-08-02] MEDS ORDERED: Furosemide 40 MG/4 ML VIAL ONE (17:13)
[2017-08-02] MEDS: Dexmedetomidine HCl 400 MCG/100 ML MLS IVC SCH (17:19)
[2017-08-02] MEDS: Piperacillin/Tazobactam 3.375 GM in 0.9 % Sodium Chloride Mini Bag 100 ML IVPB SCH ×2 (17:21→23:56)
--- NOTE | 2017-08-02 17:24 | Pulmonology Consult Note ---
<ChinokavonJessy peña M - Last Filed: 08/02/17 17:48> Date of Encounter: 08/02/17 Medications and Allergies NIFEdipine [Nifedipine ER] 60 mg PO DAILY 07/14/17 [History] Ipratropium/Albuterol Neb [Duoneb] 3 ml IH Q6H inhsol 07/17/17 [Rx] Mag Hydrox/Al Hydrox/Simeth [Maalox] 15 ml PO Q6HR PRN udc 07/17/17 [Rx] Melatonin 6 mg PO HS PRN #30 tablet 07/17/17 [Rx] predniSONE [PredniSONE] See Taper PO TAPER #30 tablet 07/24/17 [Rx] Albuterol Sulfate [Ventolin Hfa] 1 puff IH Q4H PRN 08/01/17 [History] Amlodipine Besylate 10 mg PO DAILY 08/01/17 [History] 3 Allergy/AdvReac Type Severity Reaction Status Date / Time No Known Allergies Allergy Verified 07/14/17 14:52 All Systems: The remainder of the systems were reviewed and are negative Physical Examination Vital Signs: Vital Signs, Last 4 Hours Temp Pulse Resp BP Pulse Ox 08/02/17 16:36 36 142/74 100 08/02/17 16:29 38 100 08/02/17 15:56 96.2 F L 101 36 131/77 100 08/02/17 15:10 97.3 F L 94 34 153/77 99 Results - Laboratory Findings CBC and BMP: 08/02/17 12:07 08/02/17 03:07 ABG ABG pH 7.29 pH Units (7.32-7.45) L 08/02/17 16:05 ABG pCO2 28 mmHg (35-45) L 08/02/17 16:05 ABG pO2 132 mmHg (85-104) H 08/02/17 16:05 ABG O2 Saturation 99 % (95-98) H 08/02/17 16:05 PT/INR, D-dimer PT 14.0 Seconds (9.4-12.1) H 08/02/17 11:15 Abnormal lab findings: Abnormal lab results WBC 11.9 K/mcL (4.3-11.1) H 08/02/17 03:07 RBC 3.30 M/mcL (4.19-5.50) L 08/02/17 03:07 Hgb 6.6 g/dL (12.9-16.9) L D 08/02/17 12:07 Hct 21.6 % (37.5-50.1) L 08/02/17 12:07 MCHC 31.3 g/dL (31.6-35.5) L 08/02/17 03:07 RDW 15.1 % (11.5-14.5) H 08/02/17 03:07 Plt Count 79 K/mcL (140-400) L 08/02/17 03:07 PT 14.0 Seconds (9.4-12.1) H 08/02/17 11:15 ABG pH 7.29 pH Units (7.32-7.45) L 08/02/17 16:05 ABG pCO2 28 mmHg (35-45) L 08/02/17 16:05 ABG pO2 132 mmHg (85-104) H 08/02/17 16:05 ABG HCO3 14 mEq/L (21-27) L 08/02/17 16:05 ABG Total CO2 14 mEq/L (20-26) L 08/02/17 16:05 ABG O2 Saturation 99 % (95-98) H 08/02/17 16:05 ABG Base Excess -12 mEq/L (-2 to 3) L 08/02/17 16:05 Chloride 111 mEq/L (98-107) H 08/02/17 03:07 BUN 69 mg/dL (8-23) H 08/02/17 03:07 Est GFR (Non-Af Amer) 58 (> 60) L 08/02/17 03:07 BUN/Creatinine Ratio 57 (6-26) H 08/02/17 03:07 Calculated Osmolality 310 (280-300) H 08/02/17 03:07 Calcium 7.4 mg/dL (8.6-10.3) L 08/02/17 03:07 Serum Total Protein 3.9 g/dL (6.4-8.9) L 08/01/17 19:14 Albumin 2.3 g/dL (3.5-5.7) L 08/01/17 19:14 Globulin 1.6 g/dL (2.4-3.5) L 08/01/17 19:14 Stool Occult Blood Positive (Negative) A 08/02/17 10:12 - Clinical Findings Intake & Output: Intake & Output 08/02/17 08/02/17 08/02/17 07:59 15:59 23:59 Intake Total 0 / 0 0 / 0 Output Total 300 / 700 Balance -300 / -700 0 / 0 Consult Discharge Plan - Plan Referrals: Neftali Ortez MD [Primary Care Provider] - - Attending Attestation I examined this patient and my medical decision-making was reviewed with the Resident Physician. I agree with the documented findings, disposition and treatment plan as described except to the extent set forth below. Patient seen and examined. Labs, radiology, chart personally reviewed. Agree with resident's history and physical, assessment, plan with following comments: SIDE PANEL PADDER: Patient follows commands, patient is agitated and with his respiratory status was started on Precedex Pulmonary: She with respiratory distress and he is DO NOT INTUBATE status and I have explained to him he prefers to try noninvasive ventilation which is appropriate and I have changed the mask for him for better tolerance and gentle diuresis with bronchodilators and systemic steroid. Cardiovascular: stable GI: Nutrition per dietary and GI prophylaxis per routine Heme: DVT prophylaxis per routine ID: Continue antibiotics and plan to de-escalation Renal; urine out put and renal funtion reviewed Endorcine: blood glucose is monitored Lines: all lines checked and no evidence of infections Skin: skin care to prevent pressure ulcers per nursing routine care Overall prognosis is poor <Dillon Browne - Last Filed: 08/02/17 18:07> Date of Encounter: 08/02/17 Time of Encounter: 17:00 Assessment and Plan (1) Acute and chronic respiratory failure ([id number]) Current Visit: No Status: Acute Pt is DNR-CCA-DNI Saturating well on nasal cannula at 6L Duonebs Symbicort Will give low-dose IV solumedrol in setting of resp failure; aware pt is s/p EGD for upper GI bleed; is on protonix drip. Is on vanc/zosyn while blood cultures pending per initial workup for leukocytosis. 15.2, now 11.9 Qualifiers: Respiratory failure complication: hypoxia Qualified Code(s): J96.21 - Acute and chronic respiratory failure with hypoxia (2) Anemia Current Visit: Yes Status: Acute H&H stabilizing; q6 H&Hs Received 2U pRBCs S/p emergent EGD with cautery. Qualifiers: Anemia type: unspecified type Qualified Code(s): D64.9 - Anemia, unspecified (3) Melena Current Visit: Yes Status: Acute Plan as above (4) COPD (chronic obstructive pulmonary disease) Current Visit: Yes Status: Acute Plan as above Qualifiers: COPD type: COPD with acute exacerbation Qualified Code(s): J44.1 - Chronic obstructive pulmonary disease with (acute) exacerbation (5) Syncope Current Visit: Yes Status: Acute Neurology following, assessed likely the 30min stiffness episode per chief complaint described by family was not a true seizure. Per current workup, likely secondary to acute blood loss anemia. Qualifiers: Syncope type: unspecified Qualified Code(s): R55 - Syncope and collapse (6) Acute kidney injury Current Visit: No Status: Chronic Likely pre-renal; monitoring urine output (keep above .5cc/kg/hr); spot bolus in ICU BUN 76; Creat 1.51 08/01 BUN 69; Creat 1.21, close to baseline (7) DVT prophylaxis Current Visit: No Status: Acute Intermittent pneumatic compression in setting of acute blood loss anemia. History of Present Illness Consult date: 08/02/17 Requesting physician: Galileo Garcia Reason for consult: dyspnea Chief complaint: syncope/seizure History of present illness: Interval History: Mr. Mcginnis, 82M, PMH COPD, HTN presented to [facility] from [facility] for reported seizure , observed by son and daughter. He reportedly stiffened up for 30 seconds, thereafter he was alert and oriented without post-ictal confusion/lethargy, though no recollection of episode. No slurred speech, droop, focal deficit, n/v , contusion/fall. Seen by Neuro, assessing likely not true epileptic seizure, possibly syncopal in nature. Labs drawn show drop in hemoglobin from 10.1 0300 08/02 to 6.6 1200. Evidence of melena: was given 2U prbc; coags checked. Pt went in for emergent EGD, where cautery performed. Subsequent to EGD patient experienced dyspnea and increased work of breathing. ABG 08/02 1400 7.24, 1600 7.29 He was transferred to ICU where he is currently being seen. Patient currently alert, on mild sedation with Precedex, saturating well on 6L nasal cannula, was not tolerating bipap due to agitation. He is DNRCCADNI. Patient responds to verbal command and feels comfortable. Past Med Surg Social Fam HX - Past Medical History Medical history: COPD, DVT, hypertension Psychiatric history: no psych history - Past Surgical History Surgical History: non-contributory - Social History Smoking Status: Former smoker Smokeless Tobacco Status: No Alcohol use: none Drug use: none - Family History Mother Living Status: Hx Family Cardiac Disorders: No Hx Family Respiratory Disorders: No Hx Family Cancer: No Hx Family GI Disorders: No Hx Family Endocrine Disorder: No Hx Family Neuromuscular Disorders: No Hx Family Neurologic Disorders: No Hx Family HEENT Disorders: No Hx Family Autoimmune Disorders: No All Systems: The remainder of the systems were reviewed and are negative - Constitutional Constitutional: fatigue - EENT Nose, mouth and throat: no headache(s) - Cardiovascular Cardiovascular: no chest pain - Respiratory Respiratory: no hemoptysis - Gastrointestinal Gastrointestinal: no nausea, no vomiting - Neurological Neurological: memory loss, no abnormal speech Physical Examination Vital Signs: Vital Signs, Last 4 Hours Temp Pulse Resp BP Pulse Ox 08/02/17 16:36 36 142/74 100 08/02/17 16:29 38 100 08/02/17 15:56 96.2 F L 101 36 131/77 100 08/02/17 15:10 97.3 F L 94 34 153/77 99 General appearance: no acute distress Eyes: nonicteric ENT: oropharynx moist Neck: supple Effort: normal (on nasal cannula 6L) Auscultation: bilateral: diminished breath sounds, wheezes Cardiovascular: regular rate and rhythm (HR high 90s) Gastrointestinal: non-tender, non-distended, other Extremities: no cyanosis Musculoskeletal: no deformities non-focal exam Results - Laboratory Findings CBC and BMP: 08/02/17 12:07 08/02/17 03:07 ABG ABG pH 7.29 pH Units (7.32-7.45) L 08/02/17 16:05 ABG pCO2 28 mmHg (35-45) L 08/02/17 16:05 ABG pO2 132 mmHg (85-104) H 08/02/17 16:05 ABG O2 Saturation 99 % (95-98) H 08/02/17 16:05 PT/INR, D-dimer PT 14.0 Seconds (9.4-12.1) H 08/02/17 11:15 Abnormal lab findings: Abnormal lab results WBC 11.9 K/mcL (4.3-11.1) H 08/02/17 03:07 RBC 3.30 M/mcL (4.19-5.50) L 08/02/17 03:07 Hgb 6.6 g/dL (12.9-16.9) L D 08/02/17 12:07 Hct 21.6 % (37.5-50.1) L 08/02/17 12:07 MCHC 31.3 g/dL (31.6-35.5) L 08/02/17 03:07 RDW 15.1 % (11.5-14.5) H 08/02/17 03:07 Plt Count 79 K/mcL (140-400) L 08/02/17 03:07 PT 14.0 Seconds (9.4-12.1) H 08/02/17 11:15 ABG pH 7.29 pH Units (7.32-7.45) L 08/02/17 16:05 ABG pCO2 28 mmHg (35-45) L 08/02/17 16:05 ABG pO2 132 mmHg (85-104) H 08/02/17 16:05 ABG HCO3 14 mEq/L (21-27) L 08/02/17 16:05 ABG Total CO2 14 mEq/L (20-26) L 08/02/17 16:05 ABG O2 Saturation 99 % (95-98) H 08/02/17 16:05 ABG Base Excess -12 mEq/L (-2 to 3) L 08/02/17 16:05 Chloride 111 mEq/L (98-107) H 08/02/17 03:07 BUN 69 mg/dL (8-23) H 08/02/17 03:07 Est GFR (Non-Af Amer) 58 (> 60) L 08/02/17 03:07 BUN/Creatinine Ratio 57 (6-26) H 08/02/17 03:07 Calculated Osmolality 310 (280-300) H 08/02/17 03:07 Calcium 7.4 mg/dL (8.6-10.3) L 08/02/17 03:07 Serum Total Protein 3.9 g/dL (6.4-8.9) L 08/01/17 19:14 Albumin 2.3 g/dL (3.5-5.7) L 08/01/17 19:14 Globulin 1.6 g/dL (2.4-3.5) L 08/01/17 19:14 Stool Occult Blood Positive (Negative) A 08/02/17 10:12 - Clinical Findings Intake & Output: Intake & Output 08/02/17 08/02/17 08/02/17 07:59 15:59 23:59 Intake Total 0 / 0 0 / 0 Output Total 300 / 700 Balance -300 / -700 0 / 0
[2017-08-02] MEDS: MethylPREDNISolone 40 MG/ML VIAL IVP SCH (18:41)
[2017-08-02] MEDS ORDERED: Tetracaine/Benzocaine/Butamben 1 SPRAY AEROSOL ONE (18:50)
--- NOTE | 2017-08-02 19:08 | Internal Med Progress Note ---
Date of Encounter: 08/03/17 Time of Encounter: 11:00 - Assessment and plan (1) Hypotension Current Visit: Yes Status: Acute Assessment and plan: Patient hypotensive in spite of fluid resuscitation Patient also found to have acute blood loss anemia with melenic stools Continue fluid resuscitation and GI consult Qualifiers: Hypotension type: unspecified hypotension type Qualified Code(s): I95.9 - Hypotension, unspecified (2) Melena Current Visit: Yes Status: Acute Assessment and plan: Patient with acute blood loss anemia with melenic stools GI consult with plans for urgent EGD (3) Anemia Current Visit: Yes Status: Acute Assessment and plan: Acute blood loss anemia secondary to above Qualifiers: Anemia type: unspecified type Qualified Code(s): D64.9 - Anemia, unspecified (4) Seizure Current Visit: Yes Status: Acute Assessment and plan: Patient reported seizure activity at care home NEUROLOGY CONSULT - Subjective Interval history: She hypotensive overnight in addition to this morning despite fluid resuscitation Found to have melanotic stool and GI was consulted for urgent EGD which was done and patient was later transferred to the ICU - Constitutional Vitals: Temp Pulse Resp BP Pulse Ox 96.2 F L 96 38 100/61 100 08/02/17 15:56 08/02/17 18:00 08/02/17 18:00 08/02/17 18:00 08/02/17 18:00 General appearance: Present: mild distress, A&O X 3, no acute distress, answers questions appropriately - Respiratory Respiratory exam: Present: CTAB. Absent: accessory muscle use, rales, rhonchi, wheezes - Cardiovascular Cardiovascular exam: Present: RRR, +S1, +S2. Absent: diastolic murmur, gallop, rubs, systolic murmur - Skin Skin exam: Present: pallor Internal Medicine: Result - Labs CBC & Chem 7: 08/03/17 04:19 08/03/17 04:19 Labs: Short CBC 08/02/17 Range/Units 12:07 Hgb 6.6 L D (12.9-16.9) g/dL Hct 21.6 L (37.5-50.1) % - ABG Interpretation ABG results: ABG ABG pH 7.29 pH Units (7.32-7.45) L 08/02/17 16:05 ABG pCO2 28 mmHg (35-45) L 08/02/17 16:05 ABG pO2 132 mmHg (85-104) H 08/02/17 16:05 ABG O2 Saturation 99 % (95-98) H 08/02/17 16:05 PT/INR, D-dimer PT 14.0 Seconds (9.4-12.1) H 08/02/17 11:15 - Impressions Impressions Chest X-Ray 08/02/17 10:24 IMPRESSION: Stable exam without evidence for acute cardiopulmonary process. D/ /02/2017 10:54:59 Richard Lopes MD / [facility] Interpreting Provider: Richard Lopes MD Chest X-Ray 08/02/17 13:58 IMPRESSION: No acute cardiopulmonary disease. D/ / 08/02/2017 14:41:25 Imtiaz Mosqueda MD / [facility] Interpreting Provider: Imtiaz Mosqueda MD Consult Discharge Plan - Plan Referrals: Neftali Ortez MD [Primary Care Provider] -
[2017-08-02] MEDS: Budesonide/Formoterol 80/4.5 MDI IH SCH (20:11)
[2017-08-02 20:29] LABS: Hematocrit 31.8 % (37.5-50.1)
[2017-08-02 20:30] LABS: Hemoglobin 10.4 g/dL (12.9-16.9)
[2017-08-02 20:32] LABS: Calcium 6.5 mg/dL (8.6-10.3); Potassium 5.8 mEq/L (3.5-5.1)
[2017-08-03] MEDS: 0.9 % Sodium Chloride 500 ML IVC ONE ×2 (00:25→17:04)
[2017-08-03] MEDS: Pantoprazole 40 MG in 0.9 % Sodium Chloride Mini Bag 100 ML IVC SCH ×5 (01:01→22:39)
[2017-08-03] MEDS: Ipratropium/Albuterol Neb 3 ML IH SCH ×5 (03:47→19:36)
[2017-08-03 04:58] LABS: Basophils % 0.1 %; Mean Corpuscular Volume 94.3 fL (83.0-100.0); Red Cell Distribution Width 16.7 % (11.5-14.5)
[2017-08-03 05:00] LABS: Hematocrit 26.4 % (37.5-50.1); Hemoglobin 8.5 g/dL (12.9-16.9); Immature Granulocytes % 1.7 % (0-4); Immature Platelets 4.7 % (1.1-6.1); Lymphocytes # 0.8 K/mcL (0.6-4.6); Lymphocytes % 4.2 %; Mean Corpuscular HGB Conc 32.2 g/dL (31.6-35.5); Mean Corpuscular Hemoglobin 30.4 pg (28.0-33.3); Mean Platelet Volume 11.5 fL (9.4-12.4); Monocytes # 0.6 K/mcL (0.0-1.3)
[2017-08-03 05:03] LABS: Neutrophils # 16.6 K/mcL (1.6-8.9); Platelet Count 65 K/mcL (140-400)
[2017-08-03 05:21] LABS: Calcium 6.7 mg/dL (8.6-10.3); Potassium 5.3 mEq/L (3.5-5.1)
[2017-08-03] MEDS: MethylPREDNISolone 40 MG/ML VIAL IVP SCH ×2 (06:03→17:40)
[2017-08-03] MEDS ORDERED: Aminoglycoside Consult 1 EACH MC ONE (07:54)
--- NOTE | 2017-08-03 07:59 | Pulmonology Progress Note ---
Addendum entered and electronically signed by Duc Freeman DO 08/03/17 11: 32: Addendum to GI bleed Spoke to Jocelyne Anguiano with GI about melenic stools and drop in hemoglobin overnight. She says that Dr. Ventura is aware, and they plan to re-evaluate today with a possible repeat EDG. Original Note: <Duc Freeman - Last Filed: 08/03/17 11:10> Date of Encounter: 08/03/17 Time of Encounter: 09:08 Assessment and Plan (1) Acute on chronic respiratory failure with hypoxemia Current Visit: Yes Status: Acute Acute on chronic respiratory failure, secondary to COPD Currently on duoneb therapy, duonebs, IV Solu-Medrol Patient has been placed on BiPAP and is tolerating it appropriately Currently on Vanc/Zosyn, Blood cultures are negative at this time WBC 11.2 -> 18.2, more consistently tachycardic, tachypneic Hgb has decreased from prior despite negative EGD (2) Anemia Current Visit: Yes Status: Acute Anemia 2/2 acute blood loss from UGIB Hgb 8.5, down from 10.4. Received 2U PRBC Stool occult blood positive, nurses reported melena overnight GI Consult with EGD 08/02 demonstrated no active bleeding, but did show coffee- ground material in gastric body Patient will remain NPO, Continue protonix drip Qualifiers: Anemia type: unspecified type Qualified Code(s): D64.9 - Anemia, unspecified (3) Melena Current Visit: Yes Status: Acute As above (4) COPD (chronic obstructive pulmonary disease) Current Visit: Yes Status: Acute COPD with acute respiratory failure As above Qualifiers: COPD type: COPD with acute exacerbation Qualified Code(s): J44.1 - Chronic obstructive pulmonary disease with (acute) exacerbation (5) Syncope Current Visit: Yes Status: Acute Syncope, unknown etiology Neurology is following, does not believe that this is seizure activity Head CT was negative for acute findings Patient will have EEG today, recommendations from neuro appreciated Qualifiers: Syncope type: unspecified Qualified Code(s): R55 - Syncope and collapse (6) Acute kidney injury Current Visit: Yes Status: Chronic ALON, likely prerenal SCr 1.5 -> 1.6 -> 1.8, eGFR 36 Urine output is currently >0.5mL/kg/hr at this time I will check urine chemistry We will provide IV hydration with lactated ringers at this time Continue to monitor BMP (7) DVT prophylaxis Current Visit: Yes Status: Acute SCDs Subjective Principal diagnosis: Respiratory failure Interval history: The patient appears to be tolerating BiPAP at this time. Although he admits to no acute complaints at this time, however he does admit to unexpected abdominal tenderness on exam. The nurses did report that there was apparently melena overnight. Objective PUL Vital signs: Last Vital Signs Temp 98.2 F 08/03/17 05:23 Pulse 114 08/03/17 06:00 Resp 35 08/03/17 06:00 BP 94/53 08/03/17 06:00 Pulse Ox 96 08/03/17 06:00 General appearance: no acute distress, asleep (Arousable to verbal and physical stimuli) Eyes: nonicteric ENT: oropharynx moist Mallampati (class): 2 Neck: supple Effort: mildly labored Auscultation: bilateral: rales (Expiratory crackles noted b/l ) Cardiovascular: regular rate and rhythm (But tachycardic) Gastrointestinal: normoactive bowel sounds, soft, non-distended, guarding ( facial grimace and agitation upon palpation of abdomen) Extremities: no cyanosis, no edema, no clubbing Musculoskeletal: no deformities non-focal exam, unable to assess due to mental status Results - Laboratory Findings CBC and BMP: 08/03/17 04:19 08/03/17 04:19 ABG ABG pH 7.29 pH Units (7.32-7.45) L 08/02/17 16:05 ABG pCO2 28 mmHg (35-45) L 08/02/17 16:05 ABG pO2 132 mmHg (85-104) H 08/02/17 16:05 ABG O2 Saturation 99 % (95-98) H 08/02/17 16:05 PT/INR, D-dimer PT 14.0 Seconds (9.4-12.1) H 08/02/17 11:15 Abnormal lab findings: Abnormal lab results WBC 18.2 K/mcL (4.3-11.1) H D 08/03/17 04:19 RBC 2.80 M/mcL (4.19-5.50) L 08/03/17 04:19 Hgb 8.5 g/dL (12.9-16.9) L D 08/03/17 04:19 Hct 26.4 % (37.5-50.1) L 08/03/17 04:19 RDW 16.7 % (11.5-14.5) H 08/03/17 04:19 Plt Count 65 K/mcL (140-400) L 08/03/17 04:19 Neutrophils # 16.6 K/mcL (1.6-8.9) H 08/03/17 04:19 PT 14.0 Seconds (9.4-12.1) H 08/02/17 11:15 ABG pH 7.29 pH Units (7.32-7.45) L 08/02/17 16:05 ABG pCO2 28 mmHg (35-45) L 08/02/17 16:05 ABG pO2 132 mmHg (85-104) H 08/02/17 16:05 ABG HCO3 14 mEq/L (21-27) L 08/02/17 16:05 ABG Total CO2 14 mEq/L (20-26) L 08/02/17 16:05 ABG O2 Saturation 99 % (95-98) H 08/02/17 16:05 ABG Base Excess -12 mEq/L (-2 to 3) L 08/02/17 16:05 Potassium 5.3 mEq/L (3.5-5.1) H 08/03/17 04:19 Chloride 118 mEq/L (98-107) H 08/03/17 04:19 Carbon Dioxide 16 mEq/L (23-29) L 08/03/17 04:19 BUN 95 mg/dL (8-23) H 08/03/17 04:19 Creatinine 1.80 mg/dL (0.70-1.30) H 08/03/17 04:19 Est GFR ( Amer) 44 (> 60) L 08/03/17 04:19 Est GFR (Non-Af Amer) 36 (> 60) L 08/03/17 04:19 BUN/Creatinine Ratio 53 (6-26) H 08/03/17 04:19 Glucose 149 mg/dL (70-105) H 08/03/17 04:19 POC Glucose 161 (58-89) H 08/02/17 15:44 Calculated Osmolality 332 (280-300) H 08/03/17 04:19 Calcium 6.7 mg/dL (8.6-10.3) L 08/03/17 04:19 Serum Total Protein 3.9 g/dL (6.4-8.9) L 08/01/17 19:14 Albumin 2.3 g/dL (3.5-5.7) L 08/01/17 19:14 Globulin 1.6 g/dL (2.4-3.5) L 08/01/17 19:14 Stool Occult Blood Positive (Negative) A 08/02/17 10:12 - Clinical Findings Intake & Output: Intake & Output 08/02/17 08/02/17 08/03/17 15:59 23:59 07:59 Intake Total 0 / 0 450 / 450 950 / 950 Output Total 1200 / 1200 850 / 850 Balance 0 / 0 -750 / -750 100 / 100 Weight 77.8 kg Consult Discharge Plan - Plan Referrals: Ortez,Neftali Garcia MD [Primary Care Provider] - <Jessy La - Last Filed: 08/03/17 14:16> Date of Encounter: 08/03/17 Objective PUL Vital signs: Last Vital Signs Temp 98.2 F 08/03/17 12:00 Pulse 107 08/03/17 13:00 Resp 24 08/03/17 13:00 BP 101/59 08/03/17 13:00 Pulse Ox 100 08/03/17 13:00 Results - Laboratory Findings CBC and BMP: 08/03/17 04:19 08/03/17 04:19 ABG ABG pH 7.29 pH Units (7.32-7.45) L 08/02/17 16:05 ABG pCO2 28 mmHg (35-45) L 08/02/17 16:05 ABG pO2 132 mmHg (85-104) H 08/02/17 16:05 ABG O2 Saturation 99 % (95-98) H 08/02/17 16:05 PT/INR, D-dimer PT 14.0 Seconds (9.4-12.1) H 08/02/17 11:15 Abnormal lab findings: Abnormal lab results WBC 18.2 K/mcL (4.3-11.1) H D 08/03/17 04:19 RBC 2.80 M/mcL (4.19-5.50) L 08/03/17 04:19 Hgb 8.5 g/dL (12.9-16.9) L D 08/03/17 04:19 Hct 26.4 % (37.5-50.1) L 08/03/17 04:19 RDW 16.7 % (11.5-14.5) H 08/03/17 04:19 Plt Count 65 K/mcL (140-400) L 08/03/17 04:19 Neutrophils # 16.6 K/mcL (1.6-8.9) H 08/03/17 04:19 PT 14.0 Seconds (9.4-12.1) H 08/02/17 11:15 ABG pH 7.29 pH Units (7.32-7.45) L 08/02/17 16:05 ABG pCO2 28 mmHg (35-45) L 08/02/17 16:05 ABG pO2 132 mmHg (85-104) H 08/02/17 16:05 ABG HCO3 14 mEq/L (21-27) L 08/02/17 16:05 ABG Total CO2 14 mEq/L (20-26) L 08/02/17 16:05 ABG O2 Saturation 99 % (95-98) H 08/02/17 16:05 ABG Base Excess -12 mEq/L (-2 to 3) L 08/02/17 16:05 Potassium 5.3 mEq/L (3.5-5.1) H 08/03/17 04:19 Chloride 118 mEq/L (98-107) H 08/03/17 04:19 Carbon Dioxide 16 mEq/L (23-29) L 08/03/17 04:19 BUN 95 mg/dL (8-23) H 08/03/17 04:19 Creatinine 1.80 mg/dL (0.70-1.30) H 08/03/17 04:19 Est GFR ( Amer) 44 (> 60) L 08/03/17 04:19 Est GFR (Non-Af Amer) 36 (> 60) L 08/03/17 04:19 BUN/Creatinine Ratio 53 (6-26) H 08/03/17 04:19 Glucose 149 mg/dL (70-105) H 08/03/17 04:19 POC Glucose 161 (58-89) H 08/02/17 15:44 Calculated Osmolality 332 (280-300) H 08/03/17 04:19 Calcium 6.7 mg/dL (8.6-10.3) L 08/03/17 04:19 Serum Total Protein 3.9 g/dL (6.4-8.9) L 08/01/17 19:14 Albumin 2.3 g/dL (3.5-5.7) L 08/01/17 19:14 Globulin 1.6 g/dL (2.4-3.5) L 08/01/17 19:14 Stool Occult Blood Positive (Negative) A 08/02/17 10:12 - Clinical Findings Intake & Output: Intake & Output 08/02/17 08/03/17 08/03/17 23:59 07:59 15:59 Intake Total 450 / 450 1050 / 1050 100 / 100 Output Total 1200 / 1200 850 / 850 1250 / 1250 Balance -750 / -750 200 / 200 -1150 / -1150 Weight 77.8 kg - Attending Attestation I examined this patient and my medical decision-making was reviewed with the Resident Physician. I agree with the documented findings, disposition and treatment plan as described except to the extent set forth below. Patient seen and examined. Labs, radiology, chart personally reviewed. Agree with resident's history and physical, assessment, plan with following comments: LEAD PRINTER: Patient follows commands, however he is lethargic Pulmonary: Acceptable oxygenation and ventilation on noninvasive ventilation and patient CODE STATUS is DNI. Cardiovascular: Patient have arrhythmias and this could be from volume depletion and GI bleeding and also electrolytes. Patient to get magnesium and also to check electrolyte levels. GI: Nutrition per dietary and GI prophylaxis per routine discussed with machine sign writer to evaluate for need another endoscopy Heme: DVT prophylaxis per routine DVT prophylaxis ID: Continue antibiotics and plan to de-escalation Renal; urine out put and renal funtion reviewed Endorcine: blood glucose is monitored Lines: all lines checked and no evidence of infections Skin: skin care to prevent pressure ulcers per nursing routine care Overall prognosis is poor
[2017-08-03] MEDS ORDERED: Albumin 25% 25gram/100mL 25 GM/100 ML IV.SOLN IVPB ONE ×2 (08:30→12:20)
--- NOTE | 2017-08-03 08:36 | Neurology Progress Note ---
Date of Encounter: 08/03/17 Time of Encounter: 08:36 Assessment and Plan (1) Seizure Current Visit: Yes Status: Acute History of presenting illness, examination and workup thus far not correlating with likely epileptic seizure activity, given his current medical problems his presentation may be more likely syncopal episode. CT of the brain without acute findings. EEG performed: - At this time we will not add any antiepileptic therapy and patient to continue current medical and supportive care. Subjective Interval history: Mr. Mcginnis seen and evaluated patient bedside this morning. He is alert awake interactive no acute distress denies any discomforts, syncopal or seizure like activity. He has been in the ICU with improvement in his clinical status. He denies any other concerns or questions for neurology at this time. Objective - Constitutional Vitals: Temp Pulse Resp BP Pulse Ox 98.2 F 114 35 94/53 96 08/03/17 05:23 08/03/17 06:00 08/03/17 06:00 08/03/17 06:00 08/03/17 06:00 - Neurological Exam Motor Examination: Present: full strength in all major muscle groups Motor examination - left side: 5/5: deltoids, biceps, triceps, wrist flexion, wrist extension, hip flexors, fixing machine operator, quadriceps, tibialis Anterior, toe extension (EHL), plantarflexion Mental Status Examination: Present: awake, alert, oriented to person, oriented to place, oriented to time, follows commands appropriately, answers questions appropriately, no agnosia, no aphasia, no aproxia Cranial nerve examination: Present: PERRL, EOMI, visual hess intact, corneal reflexes brisk symmetrically, sensory to face intact, mastication intact, no facial asymmetry is present, no dysarthria, hearing is intact symmetrically, soft palate elevates bilaterally upon phonation, gag reflex intact, flexes SCM and trapezius muscles symmetrically with full power, tongue protrudes midline, no atrophy or facial fasiculations present Cerebellar examination: Present: no dysmetria, performs finger to nose and heel to [place] symmetrically without ataxia, no gait ataxia, no truncal ataxia, no difficulty with rapid alternating movements Results - Laboratory Findings CBC and BMP: 08/03/17 04:19 08/03/17 04:19 Abnormal lab findings: Abnormal lab results WBC 18.2 K/mcL (4.3-11.1) H D 08/03/17 04:19 RBC 2.80 M/mcL (4.19-5.50) L 08/03/17 04:19 Hgb 8.5 g/dL (12.9-16.9) L D 08/03/17 04:19 Hct 26.4 % (37.5-50.1) L 08/03/17 04:19 RDW 16.7 % (11.5-14.5) H 08/03/17 04:19 Plt Count 65 K/mcL (140-400) L 08/03/17 04:19 Neutrophils # 16.6 K/mcL (1.6-8.9) H 08/03/17 04:19 PT 14.0 Seconds (9.4-12.1) H 08/02/17 11:15 ABG pH 7.29 pH Units (7.32-7.45) L 08/02/17 16:05 ABG pCO2 28 mmHg (35-45) L 08/02/17 16:05 ABG pO2 132 mmHg (85-104) H 08/02/17 16:05 ABG HCO3 14 mEq/L (21-27) L 08/02/17 16:05 ABG Total CO2 14 mEq/L (20-26) L 08/02/17 16:05 ABG O2 Saturation 99 % (95-98) H 08/02/17 16:05 ABG Base Excess -12 mEq/L (-2 to 3) L 08/02/17 16:05 Potassium 5.3 mEq/L (3.5-5.1) H 08/03/17 04:19 Chloride 118 mEq/L (98-107) H 08/03/17 04:19 Carbon Dioxide 16 mEq/L (23-29) L 08/03/17 04:19 BUN 95 mg/dL (8-23) H 08/03/17 04:19 Creatinine 1.80 mg/dL (0.70-1.30) H 08/03/17 04:19 Est GFR ( Amer) 44 (> 60) L 08/03/17 04:19 Est GFR (Non-Af Amer) 36 (> 60) L 08/03/17 04:19 BUN/Creatinine Ratio 53 (6-26) H 03/01/18 04:19 Glucose 149 mg/dL (70-105) H 08/03/17 04:19 POC Glucose 161 (58-89) H 08/02/17 15:44 Calculated Osmolality 332 (280-300) H 08/03/17 04:19 Calcium 6.7 mg/dL (8.6-10.3) L 08/03/17 04:19 Serum Total Protein 3.9 g/dL (6.4-8.9) L 08/01/17 19:14 Albumin 2.3 g/dL (3.5-5.7) L 08/01/17 19:14 Globulin 1.6 g/dL (2.4-3.5) L 08/01/17 19:14 Stool Occult Blood Positive (Negative) A 08/02/17 10:12 Consult Discharge Plan - Plan Referrals: Neftali Ortez MD [Primary Care Provider] -
[2017-08-03] MEDS: Budesonide/Formoterol 80/4.5 MDI IH SCH ×2 (10:53→19:36)
[2017-08-03] MEDS ORDERED: Ringers Solution, Lactated 1,000 ML IVC SCH (11:00)
--- NOTE | 2017-08-03 11:02 | EEG/EMG/Oth Biometrics Report ---
EEG Procedure Report Date of procedure: 08/03/17 EEG Procedure: Routine EEG Procedure Note: Report: This EEG was acquired with standard international 10-20 electrode placement system with EKG recording. The background activity during this EEG was replaced by a mixture of theta and alpha activity with best frequency up to 7 Hz. The background activity was reactive to eye openings. Sleep stages were characterized by the presence of K-complexes, Vertex wave. There are no electrographic seizures identified during this tracing. There are no epileptiform discharges and focal slowing noted during this recording. Photic stimulation produced no abnormalities. HV not performed during this study. EKG tracing showed no significant cardiac dysarrhythmia. Impression: This is an abnormal EEG due to presence of mild diffuse background slowing. Clinical Correlation: This EEG is consistent with mild diffuse cerebral dysfunction that can be seen in patients with mild encephalopathy, metabolic/toxic, electrolyte derangement, or patients with history of cognitive impairment. Clinical correlation suggested.
[2017-08-03] MEDS: Piperacillin/Tazobactam 3.375 GM in 0.9 % Sodium Chloride Mini Bag 100 ML IVPB SCH ×3 (11:47→23:58)
[2017-08-03] MEDS ORDERED: Magnesium Sulfate 1 GM in D5% in Water 100 ML IVPB ONE (12:19)
[2017-08-03 14:13] LABS: Hematocrit 23.5 % (37.5-50.1); Hemoglobin 7.4 g/dL (12.9-16.9); Mean Corpuscular HGB Conc 31.5 g/dL (31.6-35.5); Mean Corpuscular Hemoglobin 30.7 pg (28.0-33.3); Mean Corpuscular Volume 97.5 fL (83.0-100.0); Mean Platelet Volume 11.7 fL (9.4-12.4); Red Blood Count 2.41 M/mcL (4.19-5.50); Red Cell Distribution Width 17.2 % (11.5-14.5)
[2017-08-03 14:15] LABS: Basophils % 0.1 %; Immature Granulocytes % 1.3 % (0-4); Immature Platelets 3.9 % (1.1-6.1); Lymphocytes # 0.6 K/mcL (0.6-4.6); Lymphocytes % 4.2 %; Monocytes # 0.5 K/mcL (0.0-1.3); Monocytes % 3.3 %; Neutrophils # 13.1 K/mcL (1.6-8.9); Nucleated Red Blood Cells 0.1 /100 WBC (0); Segmented Neutrophils % 91.1 %
[2017-08-03 14:17] LABS: Platelet Count 61 K/mcL (140-400)
[2017-08-03 14:18] LABS: Calcium 7.7 mg/dL (8.6-10.3); Magnesium 2.4 mg/dL (1.6-2.6); Potassium 4.6 mEq/L (3.5-5.1)
[2017-08-03 14:22] LABS: Potassium,Urine 46.9 mEq/L; Sodium, Urine 78.7 mEq/L
[2017-08-03] MEDS ORDERED: 0.9 % Sodium Chloride 500 ML ONE (15:50)
[2017-08-03] MEDS ORDERED: Lidocaine -MPF 2% 2 ML VIAL ONE ×2 (16:36)
[2017-08-03] MEDS ORDERED: *HR* Propofol 200 MG/20 ML VIAL IVP ONE ×2 (16:36)
[2017-08-03] MEDS: Dexmedetomidine HCl 400 MCG/100 ML MLS IVC SCH (17:08)
[2017-08-03] MEDS ORDERED: *HR* EPINEPHrine 1 MG/10 ML SYRINGE INTRATRACH PRN (17:30)
--- NOTE | 2017-08-03 17:33 | Gastroenterology Progress Note ---
Date of Encounter: 08/03/17 Time of Encounter: 11:10 - Assessment and plan (1) Melena Current Visit: Yes Status: Acute Assessment and plan: Will transfuse 2 units PRBCs, he needs repeat EGD. Pts son is in agreement but pt was refusing and now has consented. Dr Ventura to discuss with pt and family. (2) Anemia Current Visit: Yes Status: Acute Assessment and plan: Pt had non bleeding duodenal ulcer on EGD yesterday likely source of anemia. Qualifiers: Anemia type: unspecified type Qualified Code(s): D64.9 - Anemia, unspecified - Time Spent With Patient Total time spent is greater than 50% in coordination of care (as documented) at patient's floor/unit and/or counseling patient: - Subjective Interval history: Pt drowsy this morning, unable to answer questions at this time. Nursing staff report 3 black bowel movements over night. HGB today has dropped to 7.4. Discussed repeat EGD with son Brant who is in agreement however pt is refusing. - Constitutional Vitals: Temp Pulse Resp BP Pulse Ox 96.7 F L 120 18 101/62 100 08/03/17 17:02 08/03/17 17:02 08/03/17 17:02 08/03/17 17:02 08/03/17 17:02 Exam: CONSTITUTIONAL:~lethargic, no acute distress.~HEAD:~normocephalic.~EYES:~no jaundice.~NECK:~no obvious swelling.~HEART:~regular rate and rhythm, tachycardic , murmur noted.~LUNGS:~bilateral good air entry.~ABDOMEN:~non distended, soft, non tender, no masses palpable, no organomegaly.~RECTAL EXAM:~Deferred.~ EXTREMITIES:~no clubbing, cyanosis or edema.~SKIN:~no stigmata of chronic liver disease.~NEUROLOGIC:~no obvious focal defect.~~~~ Results - Labs CBC & Chem 7: 08/03/17 13:36 08/03/17 13:36 Labs: Last Result Calcium 7.7 mg/dL (8.6-10.3) L 08/03/17 13:36 Stool Occult Blood Positive (Negative) A 08/02/17 10:12 Entire Visit Hgb 7.4 g/dL (12.9-16.9) L 08/03/17 13:36 Hct 23.5 % (37.5-50.1) L 08/03/17 13:36 PT 14.0 Seconds (9.4-12.1) H 08/02/17 11:15 Total Bilirubin 0.6 mg/dL (0.3-1.0) 08/01/17 19:14 AST 13 Units/L (13-39) 08/01/17 19:14 ALT 27 Units/L (7-52) 08/01/17 19:14 - ABG ABG results: ABG ABG pH 7.29 pH Units (7.32-7.45) L 08/02/17 16:05 ABG pCO2 28 mmHg (35-45) L 08/02/17 16:05 ABG pO2 132 mmHg (85-104) H 08/02/17 16:05 ABG O2 Saturation 99 % (95-98) H 08/02/17 16:05 PT/INR, D-dimer PT 14.0 Seconds (9.4-12.1) H 08/02/17 11:15 - Impressions Impressions Head CT 08/02/17 22:30 IMPRESSION: No acute intracranial abnormality. D/ / Maribell Bryant Cha, MD / Maribell Bryant Cha, MD Interpreting Provider: Maribell Bryant Cha, MD Consult Discharge Plan - Plan Referrals: Neftali Ortez MD [Primary Care Provider] -
[2017-08-03] MEDS ORDERED: Furosemide 20 MG/2 ML VIAL IVP ONE (17:36)
[2017-08-03 19:04] LABS: Calcium 7.8 mg/dL (8.6-10.3); Potassium 4.4 mEq/L (3.5-5.1)
[2017-08-04] MEDS: Ipratropium/Albuterol Neb 3 ML IH SCH ×7 (00:07→23:44)
[2017-08-04 01:39] LABS: Hematocrit 23.5 % (37.5-50.1); Hemoglobin 7.9 g/dL (12.9-16.9); Mean Corpuscular HGB Conc 33.6 g/dL (31.6-35.5); Mean Corpuscular Hemoglobin 30.7 pg (28.0-33.3); Red Blood Count 2.57 M/mcL (4.19-5.50); Segmented Neutrophils % 89.9 %
[2017-08-04 01:41] LABS: Immature Granulocytes % 1.5 % (0-4); Immature Platelets 5.8 % (1.1-6.1); Lymphocytes # 0.6 K/mcL (0.6-4.6); Lymphocytes % 4.7 %; Mean Corpuscular Volume 91.4 fL (83.0-100.0); Mean Platelet Volume 11.6 fL (9.4-12.4); Monocytes # 0.5 K/mcL (0.0-1.3); Monocytes % 3.9 %; Neutrophils # 11.4 K/mcL (1.6-8.9); Nucleated Red Blood Cells 0.5 /100 WBC (0)
[2017-08-04 02:01] LABS: Calcium 7.7 mg/dL (8.6-10.3); Potassium 4.1 mEq/L (3.5-5.1)
[2017-08-04 02:02] LABS: Platelet Count 56 K/mcL (140-400)
[2017-08-04] MEDS: Pantoprazole 40 MG in 0.9 % Sodium Chloride Mini Bag 100 ML IVC SCH ×4 (03:52→19:48)
[2017-08-04] MEDS: MethylPREDNISolone 40 MG/ML VIAL IVP SCH ×2 (05:04→18:04)
[2017-08-04] MEDS: Budesonide/Formoterol 80/4.5 MDI IH SCH ×2 (07:25→20:06)
[2017-08-04] MEDS: Piperacillin/Tazobactam 3.375 GM in 0.9 % Sodium Chloride Mini Bag 100 ML IVPB SCH (07:45)
--- NOTE | 2017-08-04 08:57 | Pulmonology Progress Note ---
<Dillon Browne - Last Filed: 08/04/17 11:28> Date of Encounter: 08/04/17 Time of Encounter: 07:20 Assessment and Plan (1) Acute and chronic respiratory failure ([id number]) Current Visit: No Status: Acute Pt is DNR-CCA-DNI Saturating well on nasal cannula at 6L Duonebs Symbicort Will give low-dose IV solumedrol in setting of resp failure; aware pt is s/p EGD for upper GI bleed; is on protonix drip. Discontinuing vanc/zosyn. Leukocytosis likely leukemoid reaction in setting of acute blood loss with GI bleed + steroid for acute resp failure. Qualifiers: Respiratory failure complication: hypoxia Qualified Code(s): J96.21 - Acute and chronic respiratory failure with hypoxia (2) Anemia Current Visit: Yes Status: Acute q6 H&Hs s/p emergent EGD x2 with cautery/clipping 3U PRBC transfused over hosp course Qualifiers: Anemia type: unspecified type Qualified Code(s): D64.9 - Anemia, unspecified (3) Melena Current Visit: Yes Status: Acute Monitoring BMs; melena persisting after first EGD Continuing to monitor H&H; transfusing 1U after second EGD. (4) COPD (chronic obstructive pulmonary disease) Current Visit: Yes Status: Acute Plan detailed in medical decision making for (1). Qualifiers: COPD type: COPD with acute exacerbation Qualified Code(s): J44.1 - Chronic obstructive pulmonary disease with (acute) exacerbation (5) Syncope Current Visit: Yes Status: Acute Neurology following, assessed likely the 30min stiffness episode per chief complaint described by family was not a true seizure. Per current workup, likely secondary to acute blood loss anemia. Qualifiers: Syncope type: unspecified Qualified Code(s): R55 - Syncope and collapse (6) Acute kidney injury Current Visit: Yes Status: Chronic Likely pre-renal; monitoring urine output (keep above .5cc/kg/hr); spot bolus in ICU BUN 76; Creat 1.51 08/01 BUN 69; Creat 1.21, close to baseline (7) DVT prophylaxis Current Visit: Yes Status: Acute Intermittent pneumatic compression in setting of acute blood loss anemia. Subjective Principal diagnosis: Respiratory failure Interval history: No dyspnea on 2L NC, transitioned to clear liquid diet, s/p second EGD with 4 clips yesterday for melena and hgb drop persisting after first emergent EGD. Objective PUL Vital signs: Last Vital Signs Temp 98.7 F 08/04/17 07:00 Pulse 88 08/04/17 07:00 Resp 31 08/04/17 07:26 BP 125/81 08/04/17 07:00 Pulse Ox 96 08/04/17 07:26 General appearance: no acute distress Eyes: nonicteric ENT: oropharynx moist Neck: supple Auscultation: bilateral: diminished breath sounds Cardiovascular: irregular rhythm Gastrointestinal: soft, non-tender Extremities: no cyanosis Musculoskeletal: no deformities non-focal exam affect normal Results - Laboratory Findings CBC and BMP: 08/04/17 01:20 08/04/17 01:20 ABG ABG pH 7.29 pH Units (7.32-7.45) L 08/02/17 16:05 ABG pCO2 28 mmHg (35-45) L 08/02/17 16:05 ABG pO2 132 mmHg (85-104) H 08/02/17 16:05 ABG O2 Saturation 99 % (95-98) H 08/02/17 16:05 PT/INR, D-dimer PT 14.0 Seconds (9.4-12.1) H 08/02/17 11:15 Abnormal lab findings: Abnormal lab results WBC 12.7 K/mcL (4.3-11.1) H 08/04/17 01:20 RBC 2.57 M/mcL (4.19-5.50) L 08/04/17 01:20 Hgb 7.9 g/dL (12.9-16.9) L 08/04/17 01:20 Hct 23.5 % (37.5-50.1) L 08/04/17 01:20 RDW 17.0 % (11.5-14.5) H 08/04/17 01:20 Plt Count 56 K/mcL (140-400) L 08/04/17 01:20 Neutrophils # 11.4 K/mcL (1.6-8.9) H 08/04/17 01:20 Nucleated RBCs/100 WBC 0.5 /100 WBC (0) H 08/04/17 01:20 PT 14.0 Seconds (9.4-12.1) H 08/02/17 11:15 ABG pH 7.29 pH Units (7.32-7.45) L 08/02/17 16:05 ABG pCO2 28 mmHg (35-45) L 08/02/17 16:05 ABG pO2 132 mmHg (85-104) H 08/02/17 16:05 ABG HCO3 14 mEq/L (21-27) L 08/02/17 16:05 ABG Total CO2 14 mEq/L (20-26) L 08/02/17 16:05 ABG O2 Saturation 99 % (95-98) H 08/02/17 16:05 ABG Base Excess -12 mEq/L (-2 to 3) L 08/02/17 16:05 Sodium 146 mEq/L (136-145) H 08/04/17 01:20 Chloride 117 mEq/L (98-107) H 08/04/17 01:20 Carbon Dioxide 21 mEq/L (23-29) L 08/04/17 01:20 BUN 63 mg/dL (8-23) H 08/04/17 01:20 Creatinine 1.65 mg/dL (0.70-1.30) H 08/04/17 01:20 Est GFR ( Amer) 49 (> 60) L 08/04/17 01:20 Est GFR (Non-Af Amer) 40 (> 60) L 08/04/17 01:20 BUN/Creatinine Ratio 38 (6-26) H 08/04/17 01:20 Glucose 170 mg/dL (70-105) H 08/04/17 01:20 POC Glucose 181 (58-89) H 08/03/17 19:42 Calculated Osmolality 324 (280-300) H 08/04/17 01:20 Calcium 7.7 mg/dL (8.6-10.3) L 08/04/17 01:20 Serum Total Protein 3.9 g/dL (6.4-8.9) L 08/01/17 19:14 Albumin 2.3 g/dL (3.5-5.7) L 08/01/17 19:14 Globulin 1.6 g/dL (2.4-3.5) L 08/01/17 19:14 Stool Occult Blood Positive (Negative) A 08/02/17 10:12 - Clinical Findings Intake & Output: Intake & Output 08/03/17 08/04/17 08/04/17 23:59 07:59 15:59 Intake Total 2100 / 2100 200 / 200 100 / 100 Output Total 3100 / 3100 1800 / 1800 Balance -1000 / -1000 -1600 / -1600 100 / 100 Weight 73.8 kg Consult Discharge Plan - Plan Referrals: Ortez,Neftali Garcia MD [Primary Care Provider] - <Jessy La - Last Filed: 08/04/17 16:07> Date of Encounter: 08/04/17 Objective PUL Vital signs: Last Vital Signs Temp 98.7 F 08/04/17 12:32 Pulse 112 08/04/17 14:00 Resp 24 08/04/17 14:00 BP 103/76 08/04/17 14:00 Pulse Ox 92 08/04/17 14:00 Results - Laboratory Findings CBC and BMP: 08/04/17 11:37 08/04/17 01:20 ABG ABG pH 7.29 pH Units (7.32-7.45) L 08/02/17 16:05 ABG pCO2 28 mmHg (35-45) L 08/02/17 16:05 ABG pO2 132 mmHg (85-104) H 08/02/17 16:05 ABG O2 Saturation 99 % (95-98) H 08/02/17 16:05 PT/INR, D-dimer PT 14.0 Seconds (9.4-12.1) H 08/02/17 11:15 Abnormal lab findings: Abnormal lab results WBC 12.7 K/mcL (4.3-11.1) H 08/04/17 01:20 RBC 2.57 M/mcL (4.19-5.50) L 08/04/17 01:20 Hgb 8.7 g/dL (12.9-16.9) L 08/04/17 11:37 Hct 27.0 % (37.5-50.1) L 08/04/17 11:37 RDW 17.0 % (11.5-14.5) H 08/04/17 01:20 Plt Count 56 K/mcL (140-400) L 08/04/17 01:20 Neutrophils # 11.4 K/mcL (1.6-8.9) H 08/04/17 01:20 Nucleated RBCs/100 WBC 0.5 /100 WBC (0) H 08/04/17 01:20 PT 14.0 Seconds (9.4-12.1) H 08/02/17 11:15 ABG pH 7.29 pH Units (7.32-7.45) L 08/02/17 16:05 ABG pCO2 28 mmHg (35-45) L 08/02/17 16:05 ABG pO2 132 mmHg (85-104) H 08/02/17 16:05 ABG HCO3 14 mEq/L (21-27) L 08/02/17 16:05 ABG Total CO2 14 mEq/L (20-26) L 08/02/17 16:05 ABG O2 Saturation 99 % (95-98) H 08/02/17 16:05 ABG Base Excess -12 mEq/L (-2 to 3) L 08/02/17 16:05 Sodium 146 mEq/L (136-145) H 08/04/17 01:20 Chloride 117 mEq/L (98-107) H 08/04/17 01:20 Carbon Dioxide 21 mEq/L (23-29) L 08/04/17 01:20 BUN 63 mg/dL (8-23) H 08/04/17 01:20 Creatinine 1.65 mg/dL (0.70-1.30) H 08/04/17 01:20 Est GFR ( Amer) 49 (> 60) L 08/04/17 01:20 Est GFR (Non-Af Amer) 40 (> 60) L 08/04/17 01:20 BUN/Creatinine Ratio 38 (6-26) H 08/04/17 01:20 Glucose 170 mg/dL (70-105) H 08/04/17 01:20 POC Glucose 181 (58-89) H 08/03/17 19:42 Calculated Osmolality 324 (280-300) H 08/04/17 01:20 Calcium 7.7 mg/dL (8.6-10.3) L 08/04/17 01:20 Serum Total Protein 3.9 g/dL (6.4-8.9) L 08/01/17 19:14 Albumin 2.3 g/dL (3.5-5.7) L 08/01/17 19:14 Globulin 1.6 g/dL (2.4-3.5) L 08/01/17 19:14 Stool Occult Blood Positive (Negative) A 08/02/17 10:12 - Clinical Findings Intake & Output: Intake & Output 08/04/17 08/04/17 08/04/17 07:59 15:59 23:59 Intake Total 200 / 200 960 / 960 Output Total 1800 / 1800 320 / 320 Balance -1600 / -1600 640 / 640 Weight 73.8 kg - Attending Attestation I examined this patient and my medical decision-making was reviewed with the Resident Physician. I agree with the documented findings, disposition and treatment plan as described except to the extent set forth below. Patient seen and examined. Labs, radiology, chart personally reviewed. Agree with resident's history and physical, assessment, plan with following comments: STACK CLERK: Patient follows commands, Pulmonary: Acceptable oxygenation and ventilation and continue noninvasive ventilation when necessary Cardiovascular: Beta ashely if tolerated GI: Nutrition per dietary and GI prophylaxis per routine status post endoscopy Heme: DVT prophylaxis per routine transfusion with diuresis ID: Continue antibiotics and plan to de-escalation Renal; urine out put and renal funtion reviewed Endorcine: blood glucose is monitored Lines: all lines checked and no evidence of infections Skin: skin care to prevent pressure ulcers per nursing routine care Patient can be transferred to floor if hemoglobin stays stable
--- NOTE | 2017-08-04 10:20 | Electrocardiograph Report ---
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
[2017-08-04] MEDS ORDERED: *HR* Metoprolol 5 MG/5 ML VIAL IVP PRN (10:54)
[2017-08-04] MEDS ORDERED: 0.9 % Sodium Chloride 250 ML ONE (11:01)
[2017-08-04] MEDS ORDERED: Furosemide 20 MG/2 ML VIAL IVP ONE (11:11)
[2017-08-04 12:14] LABS: Hemoglobin 8.7 g/dL (12.9-16.9)
--- NOTE | 2017-08-04 13:05 | Gastroenterology Progress Note ---
Date of Encounter: 08/04/17 Time of Encounter: 10:05 - Assessment and plan (1) Melena Current Visit: Yes Status: Acute Assessment and plan: None since yesterday, continue to monitr H&H. Duodenal ulcer clipped and treated with Gold probe. (2) Anemia Current Visit: Yes Status: Acute Assessment and plan: Transfuse 1 unit prbcs, monitor H&H, keep Hgb around 8. Qualifiers: Anemia type: unspecified type Qualified Code(s): D64.9 - Anemia, unspecified - Time Spent With Patient Total time spent is greater than 50% in coordination of care (as documented) at patient's floor/unit and/or counseling patient: - Subjective Interval history: Pt status post EGD x 2 for upper GI bleed. Duodenal ulcer with visible blood vessel found yesterday clipped and treated with gold probe. Hgb this am is 7.9, nursing reports no further melonic stools. - Constitutional Vitals: Temp Pulse Resp BP Pulse Ox 98.7 F 102 24 116/76 94 08/04/17 12:32 08/04/17 12:00 08/04/17 12:00 08/04/17 12:00 08/04/17 12:00 Exam: CONSTITUTIONAL:~drowsy, no acute distress.~HEAD:~normocephalic.~EYES:~no jaundice.~NECK:~no obvious swelling.~HEART:~irregular rate and rhythm, no murmurs.~LUNGS:~bilateral poor air entry.~ABDOMEN:~non distended, soft, non tender, no masses palpable, no organomegaly.~RECTAL EXAM:~Deferred.~EXTREMITIES: ~no clubbing, cyanosis or edema.~SKIN:~no stigmata of chronic liver disease.~ NEUROLOGIC:~no obvious focal defect.~~~~ Results - Labs CBC & Chem 7: 08/04/17 11:37 08/04/17 01:20 Labs: Last Result Calcium 7.7 mg/dL (8.6-10.3) L 08/04/17 01:20 Stool Occult Blood Positive (Negative) A 08/02/17 10:12 Entire Visit Hgb 8.7 g/dL (12.9-16.9) L 08/04/17 11:37 Hct 27.0 % (37.5-50.1) L 08/04/17 11:37 PT 14.0 Seconds (9.4-12.1) H 08/02/17 11:15 Total Bilirubin 0.6 mg/dL (0.3-1.0) 08/01/17 19:14 AST 13 Units/L (13-39) 08/01/17 19:14 ALT 27 Units/L (7-52) 08/01/17 19:14 - ABG ABG results: ABG ABG pH 7.29 pH Units (7.32-7.45) L 08/02/17 16:05 ABG pCO2 28 mmHg (35-45) L 08/02/17 16:05 ABG pO2 132 mmHg (85-104) H 08/02/17 16:05 ABG O2 Saturation 99 % (95-98) H 08/02/17 16:05 PT/INR, D-dimer PT 14.0 Seconds (9.4-12.1) H 08/02/17 11:15 Consult Discharge Plan - Plan Referrals: Neftali Ortez MD [Primary Care Provider] -
[2017-08-04] MEDS ORDERED: Melatonin 3 MG TABLET PO PRN (13:20)
[2017-08-04] MEDS ORDERED: Mag Hydrox/Al Hydrox/Simeth 30 ML UDC PO PRN (13:20)
[2017-08-04] MEDS ORDERED: Naloxone 0.4 MG/ML INJ IVP PRN (13:20)
[2017-08-04] MEDS ORDERED: Ipratropium/Albuterol Neb 3 ML IH PRN (13:20)
[2017-08-05] MEDS: Pantoprazole 40 MG in 0.9 % Sodium Chloride Mini Bag 100 ML IVC SCH ×5 (01:22→23:05)
[2017-08-05] MEDS: Ipratropium/Albuterol Neb 3 ML IH SCH ×6 (03:37→23:04)
[2017-08-05 05:09] LABS: Mean Corpuscular Volume 93.1 fL (83.0-100.0)
[2017-08-05 05:11] LABS: Hematocrit 28.4 % (37.5-50.1); Hemoglobin 9.1 g/dL (12.9-16.9); Mean Corpuscular Hemoglobin 29.8 pg (28.0-33.3); Mean Platelet Volume 11.5 fL (9.4-12.4); Red Blood Count 3.05 M/mcL (4.19-5.50); Red Cell Distribution Width 19.1 % (11.5-14.5)
[2017-08-05 05:27] LABS: Potassium 3.8 mEq/L (3.5-5.1)
[2017-08-05] MEDS: MethylPREDNISolone 40 MG/ML VIAL IVP SCH ×2 (06:00→18:01)
[2017-08-05] MEDS: Budesonide/Formoterol 80/4.5 MDI IH SCH ×2 (07:32→20:11)
--- NOTE | 2017-08-05 13:12 | Internal Med Progress Note ---
Date of Encounter: 08/05/17 Time of Encounter: 13:12 - Assessment and plan (1) Acute exacerbation of chronic obstructive airways disease Current Visit: No Status: Acute Assessment and plan: Pt is DNR-CCA-DNI O2 down to 3-4 L NC Duonebs Symbicort on IV solumedrol 20 mg BID, in setting of resp failure; Discontinuing vanc/zosyn. Leukocytosis likely leukemoid reaction in setting of acute blood loss with GI bleed + steroid . 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, Cr stable (4) Atrial fibrillation Current Visit: Yes Status: Acute Assessment and plan: HR is controlled, was on coumadin before, stopped for GI bleeding, may need BB Qualifiers: Atrial fibrillation type: chronic Qualified Code(s): I48.2 - Chronic atrial fibrillation (5) HTN (hypertension) Current Visit: No Status: Chronic Assessment and plan: was on amlodipine, on hold due to low BP Qualifiers: Hypertension type: essential hypertension Qualified Code(s): I10 - Essential (primary) hypertension (6) History of DVT (deep vein thrombosis) Current Visit: No Status: Acute Assessment and plan: was on coumadin, stopped for GI bleeding (7) Syncope Current Visit: Yes Status: Acute Assessment and plan: is alanis from acute GI bleeding, resolved Qualifiers: Syncope type: unspecified Qualified Code(s): R55 - Syncope and collapse (8) Melena Current Visit: Yes Status: Acute Assessment and plan: from duodenal ulcer bleeding, status post EGD clipped on 08/03, continue protonix drip (9) Anemia Current Visit: Yes Status: Acute Assessment and plan: Acute blood loss anemia secondary to above from GI bleeding, Hb has sbeen satble Qualifiers: Anemia type: unspecified type Qualified Code(s): D64.9 - Anemia, unspecified (10) DVT prophylaxis Current Visit: Yes Status: Acute Assessment and plan: SCDs, due to GI bleeding - Time Spent With Patient Greater than 35 minutes - Subjective Interval history: Mr. Mcginnis is a 82 year old male with a PMH of COPD, hypertension who presented to [facility] from [facility] after he reportedly had a seizure/syncope. The patient was recently admitted twice, the 1st time for acute bronchitis and influenza, 2nd admission for COPD exacerbation. The patient was sent to an ECF after the 2nd admission for continued PT/OT. Patient's son reported that he has been told he has an arrhythmia. patient was admitted on 08/01 for syn,cope from anemia and GI bleeding After admission, patient was found to have a melena, GI was consulted, he had to EGD done on August 03 shows duodenal ulcer bleeding status post of clipped. He had to 1 unit of blood transfusion and hemoglobin has been stable. He has been on protonix drip Patient also has COPD exacerbation, on IV solumedral. per family, patient has hx of atrial fib and DVT, was on coumadin, stopped due to GI bleeding patient is doing ok, on 3-4 L NC breen ,needs to be remove he has b/l crackles, check CXR - Constitutional Vitals: Temp Pulse Resp BP Pulse Ox 97.9 F 77 18 107/73 92 08/05/17 11:06 08/05/17 11:06 08/05/17 11:23 08/05/17 11:06 08/05/17 11:23 General appearance: Present: mild distress, A&O X 3, no acute distress, answers questions appropriately Exam: CONSTITUTIONAL: patient appears as an age appropriate male in no acute distress. EYES Clear sclerae, bilateral pupils are equal, reactive to light. EMOI. RESPIRATORY: No accessory muscle use, bilateral crackles/rales. CARDIOVASCULAR: Regular heart rate, normal S1 and S2, no murmurs GASTROINTESTINAL: bowel sounds present, soft, no tenderness. MUSCULOSKELETAL: Joints in normal range of motion, no clubbing, no edema, no cyanosis. Bilateral peripheral pulses 2+. NEUROLOGIC: CN II to XII are grossly intact, no focal neurological deficit. Internal Medicine: Result - Labs CBC & Chem 7: 08/05/17 04:33 08/05/17 04:33 Labs: Short CBC 08/05/17 Range/Units 04:33 WBC 11.8 H (4.3-11.1) K/mcL Hgb 9.1 L (12.9-16.9) g/dL Hct 28.4 L (37.5-50.1) % Plt Count 61 L (140-400) K/mcL BMP 08/05/17 04:33 Sodium 144 Potassium 3.8 Chloride 114 H Carbon Dioxide 24 BUN 42 H Creatinine 1.61 H Glucose 148 H Calcium 8.0 L - ABG Interpretation ABG results: ABG ABG pH 7.29 pH Units (7.32-7.45) L 08/02/17 16:05 ABG pCO2 28 mmHg (35-45) L 08/02/17 16:05 ABG pO2 132 mmHg (85-104) H 08/02/17 16:05 ABG O2 Saturation 99 % (95-98) H 08/02/17 16:05 PT/INR, D-dimer PT 14.0 Seconds (9.4-12.1) H 08/02/17 11:15 Consult Discharge Plan - Plan Referrals: Neftali Ortez MD [Primary Care Provider] -
[2017-08-05] MEDS: Piperacillin/Tazobactam 3.375 GM in 0.9 % Sodium Chloride Mini Bag 100 ML IVPB SCH (17:21)
[2017-08-06] MEDS: Pantoprazole 40 MG in 0.9 % Sodium Chloride Mini Bag 100 ML IVC SCH ×5 (00:48→19:49)
[2017-08-06] MEDS: Piperacillin/Tazobactam 3.375 GM in 0.9 % Sodium Chloride Mini Bag 100 ML IVPB SCH ×3 (00:49→18:31)
[2017-08-06] MEDS: Ipratropium/Albuterol Neb 3 ML IH SCH ×6 (03:33→19:44)
[2017-08-06] MEDS: MethylPREDNISolone 40 MG/ML VIAL IVP SCH ×2 (05:42→18:28)
[2017-08-06 05:46] LABS: Basophils % 0.1 %; Hematocrit 22.9 % (37.5-50.1); Hemoglobin 7.3 g/dL (12.9-16.9); Immature Granulocytes % 1.2 % (0-4); Immature Platelets 8.2 % (1.1-6.1); Lymphocytes # 0.6 K/mcL (0.6-4.6); Lymphocytes % 5.2 %; Mean Corpuscular HGB Conc 31.9 g/dL (31.6-35.5); Mean Corpuscular Hemoglobin 30.8 pg (28.0-33.3); Mean Corpuscular Volume 96.6 fL (83.0-100.0); Mean Platelet Volume 12.3 fL (9.4-12.4); Monocytes # 0.6 K/mcL (0.0-1.3); Monocytes % 5.5 %; Neutrophils # 9.2 K/mcL (1.6-8.9); Nucleated Red Blood Cells 0.6 /100 WBC (0); Red Blood Count 2.37 M/mcL (4.19-5.50); Red Cell Distribution Width 19.4 % (11.5-14.5)
[2017-08-06 05:54] LABS: Platelet Count 62 K/mcL (140-400)
[2017-08-06 06:05] LABS: Calcium 7.3 mg/dL (8.6-10.3); Magnesium 2.1 mg/dL (1.6-2.6); Potassium 4.6 mEq/L (3.5-5.1)
[2017-08-06] MEDS ORDERED: 0.9 % Sodium Chloride 250 ML ONE (07:25)
[2017-08-06] MEDS ORDERED: Furosemide 40 MG/4 ML VIAL IVP ONE (07:29)
[2017-08-06] MEDS: Budesonide/Formoterol 80/4.5 MDI IH SCH ×2 (07:51→19:44)
--- NOTE | 2017-08-06 08:38 | Internal Med Progress Note ---
Date of Encounter: 08/06/17 Time of Encounter: 08:31 - Assessment and plan (1) Acute exacerbation of chronic obstructive airways disease Current Visit: No Status: Acute Assessment and plan: Pt is DNR-CCA-DNI O2 down to 3-4 L NC Duonebs Symbicort on IV solumedrol 20 mg BID, in setting of resp failure; continue zosyn. for possible pneumonia with productive cough, hypoxia . 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, Cr stable (4) Atrial fibrillation Current Visit: Yes Status: Acute Assessment and plan: HR is controlled, was on coumadin before, stopped 6 weeks ago for GI bleeding, HR is controlled Qualifiers: Atrial fibrillation type: chronic Qualified Code(s): I48.2 - Chronic atrial fibrillation (5) HTN (hypertension) Current Visit: No Status: Chronic Assessment and plan: was on amlodipine, on hold due to low BP Qualifiers: Hypertension type: essential hypertension Qualified Code(s): I10 - Essential (primary) hypertension (6) History of DVT (deep vein thrombosis) Current Visit: No Status: Acute Assessment and plan: was on coumadin, stopped for GI bleeding (7) Syncope Current Visit: Yes Status: Acute Assessment and plan: is yonisley from acute GI bleeding, resolved Qualifiers: Syncope type: unspecified Qualified Code(s): R55 - Syncope and collapse (8) Melena Current Visit: Yes Status: Acute Assessment and plan: from duodenal ulcer bleeding, status post EGD clipped on 08/03, continue protonix drip (9) Anemia Current Visit: Yes Status: Acute Assessment and plan: Acute blood loss anemia secondary to above from GI bleeding, Hb has sbeen satble Qualifiers: Anemia type: unspecified type Qualified Code(s): D64.9 - Anemia, unspecified (10) DVT prophylaxis Current Visit: Yes Status: Acute Assessment and plan: SCDs, due to GI bleeding - Subjective Interval history: Mr. Mcginnis is a 82 year old male with a PMH of COPD, hypertension who presented to [facility] from [facility] after he reportedly had a seizure/syncope. The patient was recently admitted twice, the 1st time for acute bronchitis and influenza, 2nd admission for COPD exacerbation. The patient was sent to an ECF after the 2nd admission for continued PT/OT. . patient was admitted on 08/01 for syncope from anemia and GI bleeding. After admission, patient was found to have a melena, GI was consulted, he had to EGD done on August 03 shows duodenal ulcer bleeding status post of clipped. He had to 1 unit of blood transfusion and hemoglobin has been stable. He has been on protonix drip Patient also has COPD exacerbation, on IV solumedral. per family, patient has hx of atrial fib and DVT, was on coumadin, stopped 46 weeks ago, due to GI bleeding. DVT was 4 years ago patient is doing ok, on 3-4 L NC breen ,needs to be remove, but patient adamantly refused. this morning, he reports feeling well, had good night, able to lie flat. worsening anemia dropped to 7.3, will give one unit on 08/06 CXR showed possible infiltrate, add zosyn BNP 670, will give lasix - Constitutional Vitals: Temp Pulse Resp BP Pulse Ox 98.0 F 79 20 95/60 97 08/06/17 08:07 08/06/17 08:07 08/06/17 08:07 08/06/17 08:07 08/06/17 08:07 General appearance: Present: mild distress, A&O X 3, no acute distress, answers questions appropriately Exam: CONSTITUTIONAL: patient appears as an age appropriate male in no acute distress. EYES Clear sclerae, bilateral pupils are equal, reactive to light. EMOI. RESPIRATORY: No accessory muscle use, bilateral crackles to auscultation, no wheezing CARDIOVASCULAR: Regular heart rate, normal S1 and S2, no murmurs GASTROINTESTINAL: bowel sounds present, soft, no tenderness. MUSCULOSKELETAL: Joints in normal range of motion, no clubbing, no edema, no cyanosis. Bilateral peripheral pulses 2+. NEUROLOGIC: CN II to XII are grossly intact, no focal neurological deficit. Internal Medicine: Result - Labs CBC & Chem 7: 08/06/17 04:49 08/06/17 04:49 Labs: Short CBC 08/06/17 Range/Units 04:49 WBC 10.5 (4.3-11.1) K/mcL Hgb 7.3 L D (12.9-16.9) g/dL Hct 22.9 L (37.5-50.1) % Plt Count 62 L (140-400) K/mcL Neutrophils # 9.2 H (1.6-8.9) K/mcL BMP 08/06/17 04:49 Sodium 144 Potassium 4.6 Chloride 114 H Carbon Dioxide 25 BUN 42 H Creatinine 1.57 H Glucose 147 H Calcium 7.3 L - ABG Interpretation ABG results: ABG ABG pH 7.29 pH Units (7.32-7.45) L 08/02/17 16:05 ABG pCO2 28 mmHg (35-45) L 08/02/17 16:05 ABG pO2 132 mmHg (85-104) H 08/02/17 16:05 ABG O2 Saturation 99 % (95-98) H 08/02/17 16:05 PT/INR, D-dimer PT 14.0 Seconds (9.4-12.1) H 08/02/17 11:15 - Impressions Impressions Chest X-Ray 08/05/17 13:13 IMPRESSION: 1. Patchy airspace opacity in left base, favored to represent atelectasis; however, if patient has clinical symptoms of infection, pneumonia can have the same appearance. 2. Small bilateral pleural effusions. D/ / Josh Mendes MD / Josh Mendes MD Interpreting Provider: Josh Mendes MD Consult Discharge Plan - Plan Referrals: Neftali Ortez MD [Primary Care Provider] -
[2017-08-06 11:50] LABS: Hemoglobin 6.7 g/dL (12.9-16.9)
--- NOTE | 2017-08-06 12:49 | Event Note ---
Date of Encounter: 08/06/17 Time of Encounter: 12:00 Dr. Chowdary and myself presented to the patient's bedside for evaluation of reported hemodynamic instability and worsening GI bleed as evidenced by loose tarry stools today. Patient's HR is in the 90's with SBP also in the 90's. He is tachypneid on room air. Currently receiving 1u PRBC with fluids. Patient has history of GI bleed on this admission as evidenced by melena, pallor, and anemia. EGD 08/[address] Ventura showed non-bleeding duodenal ulcer injected with epinephrine. EGD 08/[address] Ventura revealed a bleeding duodenal ulcer which was clipped and cauterized with hemostasis observed. Per patient's son, he did well yesterday and was at baseline. They have seen a change in him today noted by weakness, increased rate of breathing and pallor. Discussed with the patient and his son the patient's code status. The patient is full code. They have not signed any paperwork stating otherwise. We clarified with them: they are agreeable to chest compressions, intubation, and full heoric attempts in the event his heart stops beating or he stops breathing. Per son, patient has no history of CAD or ACS, no CHF. Hx COPD and current every day smoker. Was previously on coumadin secondary to remote DVT. Clinical concern for patient's hypotension and instability being sepsis vs hypovolemia. Transfer to ICU for close monitoring with hospitalist as primary for now. Will empirically cover with vancomycin and zosyn. Repeat chest x- ray. Draw lactate and repeat blood cultures. Plan for repeat CBC and BMP this evening. Will closely monitor.
--- NOTE | 2017-08-06 13:15 | Event Note ---
Date of Encounter: 08/06/17 Time of Encounter: 13:09 I just had a discussion with the patient's son. Since my most recent discussion with he and the patient (as documented in the prior event note), there is now questions regarding the patient's full code status. The son is not POQ and t son feels his father is at his baseline mentation and is not confused. Speaking directly to the patient with the son not at bedside - I directly asked the patient: "If you heart were to stop, do you want us to perform compressions on your chest?" His answer - No. "If you were to stop breathing, do you want us to place a tube down your windpipe/trachea to breathe for you?" His answer - no. "Do you want us to do everything possible up until that point where your heart stops or you stop breathing?" His answer - yes. The patient is clear minded, understands his situation, and understands his decisions. As such, he is clearly DNR-CCA, DNI. Both ARTURO Brownlee and ARTURO Wong were present during the conversation between myself and the patient. Dr. Chowdary was immediately available by phone if needed.
--- NOTE | 2017-08-06 13:26 | General Surgery Consult Note ---
Date of Encounter: 08/06/17 Time of Encounter: 13:23 Assessment and Plan (1) Duodenal ulcer Current Visit: Yes Status: Acute 82M with prior UGI 2/2 duodenal ulcer now with acute blood loss anemia likely from same source; patient is hypotensive; NPO IVF bedside EGD for control of bleeding consented History of Present Illness Consult date: 08/06/17 Reason for consult: other (acute blood loss anemia 2/2 duodenal ulcer) History of present illness: 82M h/o HTN, COPD, Paroxysmal Afib, PAD and duodenal ulcer who was recently treated endoscopically for bleeding ulcer who is is now having a significant drop in his h/h (9.7-->~6) with associated hypotension (SBP ~ high 80s) and tachpnea. The patient feels weak and short of breath. Due to the concern for rebleeding of the duodenal ulcer, surgery was consulted for management recommendations. No reports of chest pain nor abdominal pain. Past Med Surg Social Fam HX - Past Medical History Medical history: COPD, DVT, hypertension Psychiatric history: no psych history - Past Surgical History Surgical History: non-contributory - Social History Smoking Status: Former smoker Smokeless Tobacco Status: No Alcohol use: none Drug use: none - Family History Mother Living Status: Hx Family Cardiac Disorders: No Hx Family Respiratory Disorders: No Hx Family Cancer: No Hx Family GI Disorders: No Hx Family Endocrine Disorder: No Hx Family Neuromuscular Disorders: No Hx Family Neurologic Disorders: No Hx Family HEENT Disorders: No Hx Family Autoimmune Disorders: No Medications and Allergies Ipratropium/Albuterol Neb [Duoneb] 3 ml IH Q6H inhsol 07/17/17 [Rx] Mag Hydrox/Al Hydrox/Simeth [Maalox] 15 ml PO Q6HR PRN udc 07/17/17 [Rx] Melatonin 6 mg PO HS PRN #30 tablet 07/17/17 [Rx] predniSONE [PredniSONE] See Taper PO TAPER #30 tablet 07/24/17 [Rx] Albuterol Sulfate [Ventolin Hfa] 1 puff IH Q4H PRN 08/01/17 [History] Amlodipine Besylate 10 mg PO DAILY 08/01/17 [History] 3 Allergy/AdvReac Type Severity Reaction Status Date / Time No Known Allergies Allergy Verified 07/14/17 14:52 Review of Systems All systems PM: The remainder of the systems were reviewed and are negative General Surgery Exam Initial Vital Signs Temp Pulse Resp BP Pulse Ox 97.8 F 102 26 66/45 90 08/01/17 18:48 08/01/17 18:48 08/01/17 18:48 08/01/17 18:48 08/01/17 18:48 - General physical appearance moderate distress - Eyes other ( no scleral icterus) - ENT normocephalic - Respiratory normal expansion (tachypneic on exam) - Cardiovascular Cardiovascular exam: Present: irregular rhythm - Abdomen Abdomen general surgery: Present: soft, non tender - Integumentary Integumentary general surgery: Present: warm and dry - Neurologic Present: CN 2-12 grossly intact - Psychiatric Psychiatric general surgery: Present: A&Ox3 Exam Initial Vital Signs Temp Pulse Resp BP Pulse Ox 97.8 F 102 26 66/45 90 08/01/17 18:48 08/01/17 18:48 08/01/17 18:48 08/01/17 18:48 08/01/17 18:48 Results - Labs 08/06/17 11:10 08/06/17 04:49 Abnormal lab results RBC 2.37 M/mcL (4.19-5.50) L 08/06/17 04:49 Hgb 6.7 g/dL (12.9-16.9) L 08/06/17 11:10 Hct 21.0 % (37.5-50.1) L 08/06/17 11:10 RDW 19.4 % (11.5-14.5) H 08/06/17 04:49 Plt Count 62 K/mcL (140-400) L 08/06/17 04:49 Neutrophils # 9.2 K/mcL (1.6-8.9) H 08/06/17 04:49 Nucleated RBCs/100 WBC 0.6 /100 WBC (0) H 08/06/17 04:49 Immature Plt Fraction 8.2 % (1.1-6.1) H 08/06/17 04:49 PT 14.0 Seconds (9.4-12.1) H 08/02/17 11:15 ABG pH 7.29 pH Units (7.32-7.45) L 08/02/17 16:05 ABG pCO2 28 mmHg (35-45) L 08/02/17 16:05 ABG pO2 132 mmHg (85-104) H 08/02/17 16:05 ABG HCO3 14 mEq/L (21-27) L 08/02/17 16:05 ABG Total CO2 14 mEq/L (20-26) L 08/02/17 16:05 ABG O2 Saturation 99 % (95-98) H 08/02/17 16:05 ABG Base Excess -12 mEq/L (-2 to 3) L 08/02/17 16:05 Chloride 114 mEq/L (98-107) H 08/06/17 04:49 BUN 42 mg/dL (8-23) H 08/06/17 04:49 Creatinine 1.57 mg/dL (0.70-1.30) H 08/06/17 04:49 Est GFR ( Amer) 52 (> 60) L 08/06/17 04:49 Est GFR (Non-Af Amer) 43 (> 60) L 08/06/17 04:49 BUN/Creatinine Ratio 27 (6-26) H 08/06/17 04:49 Glucose 147 mg/dL (70-105) H 08/06/17 04:49 POC Glucose 193 (58-89) H 08/06/17 13:12 Calculated Osmolality 311 (280-300) H 08/06/17 04:49 Calcium 7.3 mg/dL (8.6-10.3) L 08/06/17 04:49 B-Natriuretic Peptide 670 pg/mL (Less than 100) H 08/06/17 04:49 Serum Total Protein 3.9 g/dL (6.4-8.9) L 08/01/17 19:14 Albumin 2.3 g/dL (3.5-5.7) L 08/01/17 19:14 Globulin 1.6 g/dL (2.4-3.5) L 08/01/17 19:14 Stool Occult Blood Positive (Negative) A 08/02/17 10:12 Diabetes panel 08/06/17 Range/Units 04:49 Sodium 144 (136-145) mEq/L Potassium 4.6 (3.5-5.1) mEq/L Chloride 114 H (98-107) mEq/L Carbon Dioxide 25 (23-29) mEq/L BUN 42 H (8-23) mg/dL Creatinine 1.57 H (0.70-1.30) mg/dL Glucose 147 H (70-105) mg/dL Calcium 7.3 L (8.6-10.3) mg/dL Calcium panel 08/06/17 Range/Units 04:49 Calcium 7.3 L (8.6-10.3) mg/dL Pituitary panel 08/06/17 Range/Units 04:49 Sodium 144 (136-145) mEq/L Potassium 4.6 (3.5-5.1) mEq/L Chloride 114 H (98-107) mEq/L Carbon Dioxide 25 (23-29) mEq/L BUN 42 H (8-23) mg/dL Creatinine 1.57 H (0.70-1.30) mg/dL Glucose 147 H (70-105) mg/dL Calcium 7.3 L (8.6-10.3) mg/dL Adrenal panel 08/06/17 Range/Units 04:49 Sodium 144 (136-145) mEq/L Potassium 4.6 (3.5-5.1) mEq/L Chloride 114 H (98-107) mEq/L Carbon Dioxide 25 (23-29) mEq/L BUN 42 H (8-23) mg/dL Creatinine 1.57 H (0.70-1.30) mg/dL Glucose 147 H (70-105) mg/dL Calcium 7.3 L (8.6-10.3) mg/dL All other labs normal. Consult Discharge Plan - Plan Referrals: Neftali Ortez MD [Primary Care Provider] -
[2017-08-06] MEDS ORDERED: *HR* Midazolam HCl 2 MG/2 ML VIAL IVP ONE ×3 (13:30→18:15)
[2017-08-06] MEDS ORDERED: *HR* FentaNYL (PF) 100 MCG/2 ML VIAL IVP ONE (13:30)
[2017-08-06] MEDS ORDERED: *HR* Promethazine 25 MG/ML VIAL IVP ONE (13:30)
[2017-08-06] MEDS ORDERED: *HR* FentaNYL (PF) 100 MCG/2 ML VIAL ONE (13:33)
[2017-08-06] MEDS ORDERED: *HR* Midazolam HCl 5 MG/5 ML VIAL IVP ONE (13:33)
--- NOTE | 2017-08-06 13:33 | Pre-Sedation Evaluation ---
Pre-sedation evaluation - Pre-sedation checklist Date of procedure: 08/03/17 Procedure: EGD Recent Vitals: Last Vital Signs Temp 97.3 F L 08/06/17 13:15 Pulse 99 08/06/17 13:15 Resp 28 08/06/17 13:15 BP 95/52 08/06/17 13:15 Pulse Ox 95 08/06/17 13:15 H&P (including ROS) documented in medical record: Yes Previous reaction to sedatives/anesthetics: No Dietary Status: unknown ASA Classification *see protocol: CLASS IV-Severe systemic disease/constant threat to pt's life Plan of Care: Pt appropriate candidate for procedure/moderate/conscious sedation , Risks/benefits of procedure/sedation discussed w/ patient/family, If not NPO; Risk of intake outweiged by necessity to perform procedure
[2017-08-06] MEDS: Norepinephrine 4 MG in D5% in Water 250 ML IVC SCH ×3 (15:30→23:19)
--- NOTE | 2017-08-06 16:39 | General Surgery Procedure Note ---
Date of procedure: 08/06/17 Pre-op diagnosis: bleeding duodenal ulcer Post-op diagnosis: same Procedure: esophagogastroduodenoscopy The patient was positioned in the LLD (right side up). A timeout was held. IV sedation was given. I inserted the scope and into the eosphagus without difficulty and quickly went into the stomach. I was able to retroflex, but there were pools of blood obscuring my view of the hiatus. There were also pools of blood within the antrum. I was able to find the pylorus and eventually enter into the duodenum. There was a large blood clot visible with minor oozing around it. The patient's blood pressure began to drop to the high 70s. In addition, it was difficult to maintain insuffluation despite patient being as relaxed and sedated as possible. Rather than take the risk of removing the clot leading to uncontrolled bleeding in a setting where i could not maintain insufflation well enough for intervention, I elected to keep the clot in place. I withdrew the scope and concluded the procedure. The patient remained in the ICU. Complications: none Findings: large adherent clot; unable to detect size of ulcer; Anesthesia: IV sedation Surgeon: Carlos Aguero Pathology: none sent Condition: critical Disposition: ICU
[2017-08-06 17:27] LABS: Basophils % 0.1 %; Immature Granulocytes % 3.7 % (0-4); Mean Corpuscular Hemoglobin 29.3 pg (28.0-33.3); Mean Platelet Volume 12.3 fL (9.4-12.4); Red Cell Distribution Width 18.6 % (11.5-14.5)
[2017-08-06 17:29] LABS: Hematocrit 29.3 % (37.5-50.1); Hemoglobin 9.3 g/dL (12.9-16.9); Immature Platelets 9.8 % (1.1-6.1); Lymphocytes # 0.6 K/mcL (0.6-4.6); Lymphocytes % 3.8 %; Mean Corpuscular HGB Conc 31.7 g/dL (31.6-35.5); Mean Corpuscular Volume 92.4 fL (83.0-100.0); Monocytes % 6.4 %; Neutrophils # 13.5 K/mcL (1.6-8.9); Nucleated Red Blood Cells 1.7 /100 WBC (0); Red Blood Count 3.17 M/mcL (4.19-5.50)
[2017-08-06 17:33] LABS: Platelet Count 69 K/mcL (140-400)
[2017-08-06 17:44] LABS: Calcium 7.2 mg/dL (8.6-10.3); Potassium 5.1 mEq/L (3.5-5.1)
--- NOTE | 2017-08-06 17:44 | Procedure Note ---
<Elpidio Farias - Last Filed: 08/06/17 17:41> Date of procedure: 08/06/17 Pre-op diagnosis: Hypotension Post-op diagnosis: same Procedure: Indication: Hypotension requiring pressor support Resident: Elpidio Farias DO Attending: Lex Reddy MD Consent on file. A time-out was completed verifying correct patient, procedure , site, positioning, and special equipment. The patient was placed in a supine position appropriate for central line placement into the right IJ vein. The patients right neck was prepped and draped in sterile fashion. 1% Lidocaine was used to anesthetize the surrounding skin area. A triple lumen 9Fr Cordis catheter was introduced into the the right internal jugular vein using the Seldinger technique under ultrasound guidance. Wire placement was confirmed within the vessel lumen prior to dilation. The catheter was threaded smoothly over the guide wire and appropriate blood return was obtained. Each lumen of the catheter was evacuated of air and flushed with sterile saline. The catheter was then sutured in place to the skin and a sterile dressing applied. Dr. Reddy was present for the entire procedure. Post placement XRay confirmed appropriate placement and the line was cleared for use by nursing. Estimated Blood Loss: 0-1mL The patient tolerated the procedure well and there were no complications. Anesthesia: local Surgeon: Elpidio Farias Was there an assistant professor of communication present: Yes Duty Engineer: Lxe Reddy Estimated blood loss (cc): 0 IV fluids (cc): 0 Urine output (cc): 0 Specimen: 0 Pathology: none sent Condition: critical Disposition: ICU <Lex Reddy - Last Filed: 08/06/17 20:07> Procedure: Present and supervised the resident physician during the entire procedure. The procedure was performed skillfully, patient tolerated procedure well. I have personally reviewed the chest x-ray post procedure. There are no complications. Right IJ CVC tip terminates and that it cc. Lex Reddy MD
[2017-08-06 17:53] LABS: Anisocytosis 1+ (Not Present); Macrocytosis Present (Not Present); Platelet Estimate Decreased (Normal); Polychromasia 1+ (Not Present)
[2017-08-06] MEDS ORDERED: Amiodarone Premix 150 MG/100 ML BAG IVPB ONE ×2 (17:57→18:10)
[2017-08-06] MEDS ORDERED: Amiodarone Premix 360 MG/200 ML BAG IVC ONE ×2 (18:06→18:10)
--- NOTE | 2017-08-06 18:15 | Event Note ---
<Elpidio Farias - Last Filed: 08/06/17 18:10> Date of Encounter: 08/06/17 Time of Encounter: 18:11 Dr. Reddy and I were called to bedside by nursing. Patient was in a dysarrhythmia: Sinus tachycardia with PVC and non-sustained runs of wide complex ventricular tachycardia. Patient was awake with a pulse. He was uncomfortable. He was given 1mg Versed x2 and started on amiodarone. Patient' s cardiac rhythm on the bedside monitor normalised to sinus rhythm in the 90's to sinus tachycardia to the low 100's. No PVCs and no ventricular tachycardias seen. Will continue Amiodarone drip and closely monitor. Patient's son, Frieda, was called and updated on the patient's status. <Lex Reddy - Last Filed: 08/06/17 20:21> Date of Encounter: 08/06/17 I was called by nursing to evaluate the patient for tachyarrhythmia. Patient appears obtunded, restless, nonverbal, not following commands. Vital signs remarkable for hypotension and tachycardia. Heart rate in the 140s. Telemetry review shows sinus tachycardia with PACs and nonsustained V. tach. Heart exam is a regular S1-S2, tachycardic no murmurs, lungs are clear, sharp shallow breath sounds. Abdomen is soft and nontender. Skin is diaphoretic. There is no lower extremity edema. Laboratory data was reviewed. Hemoglobin this morning dropped to 6.7 from 9.1 on 08/05/2017. Patient was given 2 units of PRBC today. Repeat hemoglobin came up to 9.3. Assessment: Hypovolemic shock septic secondary to acute upper GI bleed due to bleeding gastric ulcer. Unstable nonsustained ventricular tachycardia Metabolic encephalopathy. Thrombocytopenia Plan: IV fluids, PRBC transfusion. Start norepinephrine titrate to maintain map above 65. After starting norepinephrine and the patient went into tachyarrhythmia with episodes of nonsustained V. tach. Started amiodarone drip which caused a good response with decrease in heart rate and decrease in the episodes of ventricular ectopy. We started phenylephrine while titrating down norepinephrine. For thrombocytopenia I will order transfusion of 2 units of platelets. For GI bleed we will continue with IV Protonix. Nothing by mouth. Follow-up with GI in the morning. The high probability of emergent and significant clinical decompensation with potential impairment of cardiovascular and respiratory function required my full attention and presence at the bedside. I spent 50 minutes of critical care time which involved decision making of high complexity to assess, manipulate, and support vital organ system, in order to prevent further life threatening deterioration of the patient's condition. The critical care time was spent in the patient's room or its close proximity and involved obtaining updated history from the patient, family and nursing staff, examining the patient, reviewing EKGs, imaging studies and laboratory data, ordering medications and laboratory studies, and reevaluating for clinical response. The time spent teaching or performing any procedures and teaching was not included in the critical care time stated above and will be billed separately.
[2017-08-06] MEDS: Phenylephrine 10 MG in D5% in Water 250 ML IVC SCH ×3 (18:23→21:15)
[2017-08-06 18:36] LABS: INR 1.3; Prothrombin Time 14.5 Seconds (9.4-12.1)
[2017-08-06 18:39] LABS: Activated Partial Thrombo Time 27.1 Seconds (26.0-36.0)
[2017-08-06] MEDS: *HR* Midazolam HCl 2 MG/2 ML VIAL IVP PRN ×2 (20:13→22:52)
[2017-08-06] MEDS: Amiodarone Premix 360 MG/200 ML BAG IVC SCH (23:40)
[2017-08-06 23:48] LABS: Hematocrit 26.5 % (37.5-50.1); Hemoglobin 8.3 g/dL (12.9-16.9)
[2017-08-07] MEDS: Phenylephrine 10 MG in D5% in Water 250 ML IVC SCH ×3 (00:12→15:01)
[2017-08-07] MEDS: Ipratropium/Albuterol Neb 3 ML IH SCH ×6 (00:35→20:02)
[2017-08-07] MEDS ORDERED: 0.9 % Sodium Chloride 250 ML ONE ×3 (01:25→14:35)
[2017-08-07] MEDS: Pantoprazole 40 MG in 0.9 % Sodium Chloride Mini Bag 100 ML IVC SCH ×4 (02:41→16:04)
[2017-08-07] MEDS: Piperacillin/Tazobactam 3.375 GM in 0.9 % Sodium Chloride Mini Bag 100 ML IVPB SCH ×3 (02:43→17:04)
[2017-08-07 04:46] LABS: Hemoglobin 7.5 g/dL (12.9-16.9); Mean Corpuscular Hemoglobin 29.3 pg (28.0-33.3); Monocytes % 5.5 %; Red Blood Count 2.56 M/mcL (4.19-5.50)
[2017-08-07 04:48] LABS: Basophils # 0.1 K/mcL (0.0-0.2); Basophils % 0.3 %; Hematocrit 23.5 % (37.5-50.1); Lymphocytes # 1.3 K/mcL (0.6-4.6); Lymphocytes % 4.9 %; Mean Corpuscular HGB Conc 31.9 g/dL (31.6-35.5); Mean Corpuscular Volume 91.8 fL (83.0-100.0); Mean Platelet Volume 10.8 fL (9.4-12.4); Monocytes # 1.4 K/mcL (0.0-1.3); Neutrophils # 21.6 K/mcL (1.6-8.9); Red Cell Distribution Width 19.6 % (11.5-14.5); Segmented Neutrophils % 84.3 %
[2017-08-07 04:54] LABS: Calcium 6.9 mg/dL (8.6-10.3); Potassium 4.5 mEq/L (3.5-5.1)
[2017-08-07 05:21] LABS: Platelet Count 76 K/mcL (140-400)
[2017-08-07] MEDS: Amiodarone Premix 360 MG/200 ML BAG IVC SCH ×2 (05:51→15:43)
[2017-08-07] MEDS: MethylPREDNISolone 40 MG/ML VIAL IVP SCH ×2 (06:33→17:04)
[2017-08-07] MEDS: Budesonide/Formoterol 80/4.5 MDI IH SCH ×2 (07:43→20:02)
--- NOTE | 2017-08-07 08:38 | Sepsis Event Note ---
<Dillon Browne - Last Filed: 08/07/17 09:30> Sepsis Event Note - Evaluation Sepsis Screen: Sepsis Risk Current Stage of Sepsis: sepsis Possible Source of Sepsis: pulmonary - Focused Exam Date of Encounter: 08/07/17 Time of Encounter: 08:37 Vital Signs: Vital Signs Temp Pulse Resp BP Pulse Ox 08/07/17 08:06 84 08/07/17 08:00 86 26 97/80 94 08/07/17 07:46 28 96 08/07/17 07:15 103 24 104/64 92 08/07/17 06:31 105 28 102/62 96 08/07/17 05:00 97.3 F L 103 28 107/75 94 08/07/17 04:53 97.3 F L 86 28 119/64 94 08/07/17 04:00 99 28 118/99 94 08/07/17 03:18 28 92 08/07/17 03:00 87 28 90/58 94 08/07/17 02:00 100 28 91/70 94 08/07/17 01:39 96.2 F L 08/07/17 01:35 97.4 F L 82 24 123/74 08/07/17 01:00 84 30 88/67 94 08/07/17 00:35 30 92 08/07/17 00:00 83 28 129/71 94 08/06/17 23:00 85 30 106/76 96 08/06/17 22:00 92 30 129/97 92 08/06/17 21:00 86 34 106/44 90 Respiratory Exam: Present: decreased breath sounds (>20 breaths per minute) Cardiovascular Exam: Present: tachycardia - Bedside Monitoring Date bedside monitoring was performed: 08/07/17 Time bedside monitoring was performed: 08:00 CVP Measures: 8-12 (note: not measured; selection required for note submission) ScvO2 measures: greater than or equal to 70% (note: not measured; selection required for note submission) Bedside Ultrasound Performed: No Passive Leg raise/fluid bolus: not performed <Allie Kaiser - Last Filed: 08/07/17 21:56> Sepsis Event Note - Focused Exam Vital Signs: Vital Signs Temp Pulse Resp BP Pulse Ox 08/07/17 18:21 82 30 65/44 08/07/17 18:00 35 68/45 08/07/17 17:30 70 28 62/52 100 08/07/17 17:00 73 32 73/54 97 08/07/17 16:15 80 37 119/92 08/07/17 15:23 93 32 101/71 08/07/17 15:16 32 43/20 97 08/07/17 15:03 40 93 08/07/17 14:43 97.3 F L 133 40 85/66 08/07/17 14:00 86 32 104/53 08/07/17 13:00 90 32 94/53 93 08/07/17 12:15 89 30 101/53 92 08/07/17 12:00 98.1 F 08/07/17 11:30 32 95 08/07/17 11:00 89 32 117/61 95 08/07/17 10:00 30 110/67 92
--- NOTE | 2017-08-07 09:48 | Pulmonology Progress Note ---
<Dillon Browne - Last Filed: 08/07/17 11:50> Date of Encounter: 08/07/17 Time of Encounter: 07:30 Assessment and Plan (1) Acute and chronic respiratory failure ([id number]) Current Visit: No Status: Acute Pt is DNR-CCA-DNI Saturating well on nasal cannula at 10L Duonebs Symbicort vanc/zosyn restarted monday empirically, bld cultures negative x2; cxr unremarkable; lung sounds may suggest mild vascular congestion Qualifiers: Respiratory failure complication: hypoxia Qualified Code(s): J96.21 - Acute and chronic respiratory failure with hypoxia (2) Anemia Current Visit: Yes Status: Acute Monitoring H&Hs and BMs s/p emergent EGD x3, last EGD 3/4 Tachyarrhythmia with hypotension 3/4 1800; on Levophed, fluid recuscitation, has CVC access. Transfused platelets 2U yesterday Plan: GI/Surgery holding off on procedure for now Giving DDAVP today at 0.03micrograms/kilogram Qualifiers: Anemia type: unspecified type Qualified Code(s): D64.9 - Anemia, unspecified (3) Melena Current Visit: Yes Status: Acute Plan per Anemia (2) (4) COPD (chronic obstructive pulmonary disease) Current Visit: Yes Status: Acute Plan detailed in medical decision making for (1). Qualifiers: COPD type: COPD with acute exacerbation Qualified Code(s): J44.1 - Chronic obstructive pulmonary disease with (acute) exacerbation (5) Syncope Current Visit: Yes Status: Acute Neurology following, assessed likely the 30min stiffness episode per chief complaint described by family was not a true seizure. Per current workup, likely secondary to acute blood loss anemia. Qualifiers: Syncope type: unspecified Qualified Code(s): R55 - Syncope and collapse (6) Acute kidney injury Current Visit: Yes Status: Chronic Likely pre-renal; monitoring urine output (keep above .5cc/kg/hr); spot bolus in ICU (7) DVT prophylaxis Current Visit: Yes Status: Acute Intermittent pneumatic compression in setting of acute blood loss anemia. Subjective Principal diagnosis: Respiratory failure Interval history: Patient is on 10L high flow nasal cannula, saturating well but tachypneic. Objective PUL Vital signs: Last Vital Signs Temp 98.1 F 08/07/17 08:00 Pulse 89 08/07/17 09:00 Resp 24 08/07/17 09:00 BP 110/67 08/07/17 09:00 Pulse Ox 94 08/07/17 09:00 General appearance: no acute distress Eyes: nonicteric ENT: oropharynx moist Neck: supple Effort: mildly labored Auscultation: bilateral: diminished breath sounds, rales Cardiovascular: regular rate and rhythm (currently RRR in the 80s, no murmur, rub, or gallop) Gastrointestinal: soft, non-tender, non-distended Integumentary: normal Extremities: no cyanosis Musculoskeletal: no deformities Results - Laboratory Findings CBC and BMP: 08/07/17 04:18 08/07/17 04:18 ABG ABG pH 7.29 pH Units (7.32-7.45) L 08/02/17 16:05 ABG pCO2 28 mmHg (35-45) L 08/02/17 16:05 ABG pO2 132 mmHg (85-104) H 08/02/17 16:05 ABG O2 Saturation 99 % (95-98) H 08/02/17 16:05 PT/INR, D-dimer PT 14.5 Seconds (9.4-12.1) H 08/06/17 17:37 Abnormal lab findings: Abnormal lab results WBC 25.6 K/mcL (4.3-11.1) H D 08/07/17 04:18 RBC 2.56 M/mcL (4.19-5.50) L 08/07/17 04:18 Hgb 7.5 g/dL (12.9-16.9) L 08/07/17 04:18 Hct 23.5 % (37.5-50.1) L 08/07/17 04:18 RDW 19.6 % (11.5-14.5) H 08/07/17 04:18 Plt Count 76 K/mcL (140-400) L 08/07/17 04:18 Immature Gran % 5.0 % (0-4) H 08/07/17 04:18 Neutrophils # 21.6 K/mcL (1.6-8.9) H 08/07/17 04:18 Monocytes # 1.4 K/mcL (0.0-1.3) H 08/07/17 04:18 Nucleated RBCs/100 WBC 2.0 /100 WBC (0) H 08/07/17 04:18 Platelet Estimate Decreased (Normal) L 08/06/17 17:15 Immature Plt Fraction 9.8 % (1.1-6.1) H 08/06/17 17:15 Polychromasia 1+ (Not Present) A 08/06/17 17:15 Anisocytosis 1+ (Not Present) A 08/06/17 17:15 Macrocytosis Present (Not Present) A 08/06/17 17:15 PT 14.5 Seconds (9.4-12.1) H 08/06/17 17:37 ABG pH 7.29 pH Units (7.32-7.45) L 08/02/17 16:05 ABG pCO2 28 mmHg (35-45) L 08/02/17 16:05 ABG pO2 132 mmHg (85-104) H 08/02/17 16:05 ABG HCO3 14 mEq/L (21-27) L 08/02/17 16:05 ABG Total CO2 14 mEq/L (20-26) L 08/02/17 16:05 ABG O2 Saturation 99 % (95-98) H 08/02/17 16:05 ABG Base Excess -12 mEq/L (-2 to 3) L 08/02/17 16:05 Carbon Dioxide 17 mEq/L (23-29) L 08/07/17 04:18 BUN 63 mg/dL (8-23) H 08/07/17 04:18 Creatinine 2.61 mg/dL (0.70-1.30) H 08/07/17 04:18 Est GFR ( Amer) 29 (> 60) L 08/07/17 04:18 Est GFR (Non-Af Amer) 24 (> 60) L 08/07/17 04:18 Glucose 191 mg/dL (70-105) H 08/07/17 04:18 POC Glucose 297 (58-89) H 08/07/17 00:09 Calculated Osmolality 305 (280-300) H 08/07/17 04:18 Calcium 6.9 mg/dL (8.6-10.3) L 08/07/17 04:18 B-Natriuretic Peptide 670 pg/mL (Less than 100) H 08/06/17 04:49 Serum Total Protein 3.9 g/dL (6.4-8.9) L 08/01/17 19:14 Albumin 2.3 g/dL (3.5-5.7) L 08/01/17 19:14 Globulin 1.6 g/dL (2.4-3.5) L 08/01/17 19:14 Stool Occult Blood Positive (Negative) A 08/02/17 10:12 - Clinical Findings Intake & Output: Intake & Output 08/06/17 08/07/17 08/07/17 23:59 07:59 15:59 Intake Total 1461 / 1461 1948 / 1948 0 / 0 Output Total 100 / 100 50 / 50 Balance 1361 / 1361 1898 / 1898 0 / 0 Weight 80.2 kg Consult Discharge Plan - Plan Referrals: Pérez,Neftali Garcia MD [Primary Care Provider] - <Allie Kaiser - Last Filed: 08/07/17 21:04> Date of Encounter: 08/07/17 Objective PUL Vital signs: Last Vital Signs Temp 97.3 F L 08/07/17 14:43 Pulse 82 08/07/17 18:21 Resp 30 08/07/17 18:21 BP 65/44 08/07/17 18:21 Pulse Ox 100 08/07/17 17:30 Results - Laboratory Findings CBC and BMP: 08/07/17 11:01 08/07/17 17:43 ABG ABG pH 7.29 pH Units (7.32-7.45) L 08/02/17 16:05 ABG pCO2 28 mmHg (35-45) L 08/02/17 16:05 ABG pO2 132 mmHg (85-104) H 08/02/17 16:05 ABG O2 Saturation 99 % (95-98) H 08/02/17 16:05 PT/INR, D-dimer PT 14.5 Seconds (9.4-12.1) H 08/06/17 17:37 Abnormal lab findings: Abnormal lab results WBC 25.6 K/mcL (4.3-11.1) H D 08/07/17 04:18 RBC 2.56 M/mcL (4.19-5.50) L 08/07/17 04:18 Hgb 6.6 g/dL (12.9-16.9) L 08/07/17 11:01 Hct 20.2 % (37.5-50.1) L 08/07/17 11:01 RDW 19.6 % (11.5-14.5) H 08/07/17 04:18 Plt Count 76 K/mcL (140-400) L 08/07/17 04:18 Immature Gran % 5.0 % (0-4) H 08/07/17 04:18 Neutrophils # 21.6 K/mcL (1.6-8.9) H 08/07/17 04:18 Monocytes # 1.4 K/mcL (0.0-1.3) H 08/07/17 04:18 Nucleated RBCs/100 WBC 2.0 /100 WBC (0) H 08/07/17 04:18 Platelet Estimate Decreased (Normal) L 08/06/17 17:15 Immature Plt Fraction 9.8 % (1.1-6.1) H 08/06/17 17:15 Polychromasia 1+ (Not Present) A 08/06/17 17:15 Anisocytosis 1+ (Not Present) A 08/06/17 17:15 Macrocytosis Present (Not Present) A 08/06/17 17:15 PT 14.5 Seconds (9.4-12.1) H 08/06/17 17:37 ABG pH 7.29 pH Units (7.32-7.45) L 08/02/17 16:05 ABG pCO2 28 mmHg (35-45) L 08/02/17 16:05 ABG pO2 132 mmHg (85-104) H 08/02/17 16:05 ABG HCO3 14 mEq/L (21-27) L 08/02/17 16:05 ABG Total CO2 14 mEq/L (20-26) L 08/02/17 16:05 ABG O2 Saturation 99 % (95-98) H 08/02/17 16:05 ABG Base Excess -12 mEq/L (-2 to 3) L 08/02/17 16:05 VBG pH 6.89 pH Units (7.32-7.42) L* 08/07/17 18:01 VBG pCO2 60 mmHg (41-51) H 08/07/17 18:01 VBG pO2 138 mmHg (25-50) H 08/07/17 18:01 VBG HCO3 12 mEq/L (21-27) L 08/07/17 18:01 Sodium 133 mEq/L (136-145) L 08/07/17 17:43 Potassium 6.8 mEq/L (3.5-5.1) H* D 08/07/17 17:43 Carbon Dioxide 14 mEq/L (23-29) L 08/07/17 17:43 BUN 76 mg/dL (8-23) H 08/07/17 17:43 Creatinine 3.47 mg/dL (0.70-1.30) H 08/07/17 17:43 Est GFR ( Amer) 21 (> 60) L 08/07/17 17:43 Est GFR (Non-Af Amer) 17 (> 60) L 08/07/17 17:43 Glucose 202 mg/dL (70-105) H 08/07/17 17:43 POC Glucose 198 (58-89) H 08/07/17 17:37 Calculated Osmolality 304 (280-300) H 08/07/17 17:43 Lactic Acid 9.1 mmol/L (0.5-2.2) H* 08/07/17 17:43 Calcium 6.7 mg/dL (8.6-10.3) L 08/07/17 17:43 B-Natriuretic Peptide 670 pg/mL (Less than 100) H 08/06/17 04:49 Serum Total Protein 3.9 g/dL (6.4-8.9) L 08/01/17 19:14 Albumin 2.3 g/dL (3.5-5.7) L 08/01/17 19:14 Globulin 1.6 g/dL (2.4-3.5) L 08/01/17 19:14 Stool Occult Blood Positive (Negative) A 08/02/17 10:12 Vancomycin Trough 31.6 mcg/mL (10-20) H* 08/07/17 13:34 - Clinical Findings Intake & Output: Intake & Output 08/07/17 08/07/17 08/07/17 07:59 15:59 23:59 Intake Total 1947 / 1947 1248 / 1248 947 / 947 Output Total 50 / 50 60 / 60 100 / 100 Balance 1898 / 1898 1188 / 1188 847 / 847 Weight 80.2 kg - Attending Attestation I saw and evaluated this patient and my medical decision-making was reviewed with the Resident Physician. I agree with the documented findings, disposition and treatment plan as described except to the extent set forth below. We independently had [id number] contact with the patient I spent 40 minutes of Critical Care time with this patient. It involved decision making of high complexity to assess, manipulate, and support vital organ system failure and/or to prevent further life threatening deterioration of the patient's condition. The time involved in the performance of separately reportable procedures was not counted toward critical care time. Patient seen and examined at bedside Labs, radiology, chart personally reviewed. Management was reviewed during multidisciplinary critical care rounds. BLACK OXIDE COATING EQUIPMENT TENDER:Patient initially was conscious oriented x 3 spoke with him about goals of care he didnt want intubation and chest compression in the later course of he became more stuporous encephalopathy more likely due to toxic and metabolic encephalopathy Pulm: Patient has V/Q mismatch secondary to pneumonia and pulmonary vascular congestion now needing NIV didnt tolerate it patient refused Intubation now have uncompensated respiratory and metabolic acidosis Cards: Patient is in shock with worsening lactic acidosis with septic shock complicated by hypovolemia now maxed out on two vasopressors , ECHO didnt show any pericardial effusion FEN-GI:NPO Renal:Worsening ALON with Lactic acidosis ID:Septic shock on broad spectrum antibiotics Heme/Onc:Thrombocytopenia with DDAVP Endo: Glucose Monitored Integ/MSK: Skin Care per routine ICU Nursing Protocol to prevent ulcers. Lines: All lines examined without evidence of infection : Dispo: Critically ill high risk of dying tonight CODE:Patient is DNRCCA-DNI
[2017-08-07] MEDS ORDERED: SODIUM CHLORIDE 0.9% IVPB SCH (10:00)
[2017-08-07] MEDS ORDERED: DESMOPRESSIN IVPB SCH (10:00)
[2017-08-07] MEDS: Norepinephrine 4 MG in D5% in Water 250 ML IVC SCH ×2 (10:24→17:27)
[2017-08-07] MEDS ORDERED: D5% in Water 1,000 ML IVC PRN (10:49)
[2017-08-07] MEDS ORDERED: Dextrose Gel 15 GM/37.5 ML TUBE PO PRN ×2 (10:49)
[2017-08-07] MEDS ORDERED: *HR* Dextrose 50 % in Water (Syg) 50 ML SYRINGE IVP PRN (10:49)
[2017-08-07] MEDS: Insulin LISPRO 300 UNITS/3 ML VIAL SQ SCH ×2 (11:27→18:15)
[2017-08-07 12:18] LABS: Hematocrit 20.2 % (37.5-50.1); Hemoglobin 6.6 g/dL (12.9-16.9)
[2017-08-07] MEDS ORDERED: 0.9 % Sodium Chloride 500 ML ONE (14:35)
[2017-08-07] MEDS ORDERED: Heparin 1,000 UNITS/500 mL 500 ML ONE (14:35)
[2017-08-07] MEDS ORDERED: Levalbuterol Neb 1.25 MG/3 ML IH ONE (14:45)
[2017-08-07] MEDS ORDERED: *HR* LORazepam 2 MG/ML VIAL IVP ONE (15:02)
[2017-08-07] MEDS ORDERED: *HR* LORazepam 2 MG/ML VIAL ONE (15:03)
[2017-08-07] MEDS: *HR* Midazolam HCl 2 MG/2 ML VIAL IVP PRN (15:51)
[2017-08-07] MEDS ORDERED: Phenylephrine 50 MG in D5% in Water 250 ML IVC SCH (16:00)
[2017-08-07 18:10] LABS: VBG HCO3 12 mEq/L (21-27); VBG PCO2 60 mmHg (41-51); VBG PH 6.89 pH Units (7.32-7.42); VBG PO2 138 mmHg (25-50)
[2017-08-07] MEDS ORDERED: Sodium Bicarbonate 150 MEQ in D5% in Water 1,000 ML IVC SCH (18:15)
[2017-08-07 18:23] VITALS: BP 65/44
[2017-08-07 18:23] LABS: Calcium 6.7 mg/dL (8.6-10.3); Potassium 6.8 mEq/L (3.5-5.1)
--- NOTE | 2017-08-07 18:34 | Sepsis Event Note ---
<Dillon Browne - Last Filed: 08/07/17 18:34> Sepsis Event Note - Evaluation Sepsis Screen: Sepsis Risk Current Stage of Sepsis: severe sepsis (mixed acidosis; likely irreversible in setting of DNR; no heroic measures/dialysis, CCA) Possible Source of Sepsis: pulmonary - Focused Exam Date of Encounter: 08/07/17 Time of Encounter: 18:31 Vital Signs: Vital Signs Temp Pulse Resp BP Pulse Ox 08/07/17 18:21 82 30 65/44 08/07/17 18:00 35 68/45 08/07/17 17:30 70 28 62/52 100 08/07/17 17:00 73 32 73/54 97 08/07/17 16:15 80 37 119/92 08/07/17 15:23 93 32 101/71 08/07/17 15:16 32 43/20 97 08/07/17 15:03 40 93 08/07/17 14:43 97.3 F L 133 40 85/66 08/07/17 14:00 86 32 104/53 08/07/17 13:00 90 32 94/53 93 08/07/17 12:15 89 30 101/53 92 08/07/17 12:00 98.1 F 08/07/17 11:30 32 95 08/07/17 11:00 89 32 117/61 95 08/07/17 10:00 30 110/67 92 08/07/17 09:00 89 24 110/67 94 08/07/17 08:06 84 08/07/17 08:00 98.1 F 86 26 97/80 94 08/07/17 07:46 28 96 08/07/17 07:15 103 24 104/64 92 Respiratory Exam: Present: rales, respiratory distress Cardiovascular Exam: Present: tachycardia, S1, S2 Capillary Refill: > 2 seconds Peripheral Pulse Strength: 1+ faint Skin Exam: pallor - Bedside Monitoring CVP Measures: less than 8 (not performed) ScvO2 measures: greater than or equal to 70% (not performed) Bedside Ultrasound Performed: No Passive Leg raise/fluid bolus: not performed <Allie Kaiser - Last Filed: 08/07/17 21:56> Sepsis Event Note - Focused Exam Vital Signs: Vital Signs Temp Pulse Resp BP Pulse Ox 03/05/18 18:21 82 30 65/44 /05/18 18:00 35 68/45 /05/18 17:30 70 28 62/52 100 18 17:00 73 32 73/54 97 18 16:15 80 37 119/92 18 15:23 93 32 101/71 18 15:16 32 43/20 97 18 15:03 40 93 08/07/17 14:43 97.3 F L 133 40 85/66 18 14:00 86 32 104/53 18 13:00 90 32 94/53 93 0518 12:15 89 30 101/53 92 18 12:00 98.1 F 08/07/17 11:30 32 95 18 11:00 89 32 117/61 95 18 10:00 30 110/67 92
[2017-08-07] MEDS ORDERED: FentaNYL (PF) 1,000 MCG in 0.9 % Sodium Chloride 80 ML IVC SCH (18:45)
[2017-08-07] MEDS ORDERED: Atropine Sulfate 1% 40 DROP/2 ML BOTTLE SL PRN (18:56)
--- NOTE | 2017-08-07 20:04 | Death Note ---
Pronouncement Note - Date and Time of Date of : 08/07/17 Time of : 19:49 - Additional Data Attending physician: Shima Simpson MD
--- NOTE | 2017-08-07 20:19 | Death Note ---
<Alexus Kim - Last Filed: 08/07/17 20:16> Discharge Sum: Summary - Date and Time Date of admission: 08/02/17 04:53 Date of : 08/07/17 Time of : 19:49 - Summary Details: The patient presented with a "seizure like event" that after neurology evaluation was more of a syncopal episode. He was found to have an acute GI bleed. He had developed acute on chronic respiratory failure secondary to COPD. The patient went into severe sepsis requiring vasspressor support. He failed pressor therapy and family decided to withdraw care. The patient later with his family at the bedside. The parts manager came to provide support for the family. The patient passed at 1949. His nurse and another nurse besides myself evaluated the patient and confirmed . No pulse, breath sounds, pupils fixed and dilated. - Additional Data Confirmation of as documented by pronouncing clinician: no pulse, no respirations, no heart sounds, pupils fixed and dilated Family: at bedside Additional persons at bedside: henok Attending/PCP notified?: Yes Attending physician: Shima Simpson MD Was code activated?: No Autopsy requested?: No mail examiner notified?: No Organ bank notified?: No Advance directives: No Hospice patient?: No Discharge Sum: Diag - PCOD Probable Cause of : Sepsis Discharge Sum: Prov - Provider Primary care physician: Neftali Ortez MD Admitting clinician: Alexus Kim Attending physician on admission: Eulalio Shelton Consults: 08/02/17 09:12 Consult to Neurology [CONS] Routine Consulting Provider: Neurology [facility] Reason for Consult: SEIZURES Time Notified: 09:00 Call Completed: Yes 08/02/17 10:26 Consult to Gastroenterology [CONS] Stat Consulting Provider: Gastroenterology [facility] Reason for Consult: Black stool, drop in hemoglobin Call Completed: No 08/02/17 16:20 Consult to Pulmonology [CONS] Routine Consulting Provider: [facility]m [facility] Reason for Consult: dyspnea Time Notified: 16:23 Call Completed: Yes 08/03/17 10:10 Consult to Interpret Exam [CONS] Routine Consulting Provider: Zohreh Mills Consult to Interpret Exam: Interpret EEG 08/06/17 07:24 Consult to Physical Therapy [CONS] Routine Comment: Evaluate, develop and implement POC Reason for Consult: weakness 08/06/17 08:42 Consult to Occupational Therapy [CONS] Routine Comment: Evaluate, develop and implement POC Reason for Consult: discharge 08/07/17 14:38 Consult to Interventional Radiology [CONS] Routine Consulting Provider: Radiology Interventional [facility] Reason for Consult: actively bleeding duodenal ulcer; s/p 3x EGDs, hgh 6.6, platelets 70,000s, creat 2.7 (aware of possible BAND HEAD SAW OPERATOR post-procedure) Call Completed: Yes 08/07/17 18:47 Consult to Pulmonology [CONS] Stat Consulting Provider: Pulm [facility] Reason for Consult: pulmonary status Call Completed: Yes Pronouncing clinician: Alexus Kim <Allie Kaiser S - Last Filed: 08/07/17 22:08> Discharge Sum: Summary - Date and Time Date of admission: 08/02/17 04:53 - Summary Details: I agree with residents documentation except for few additional findings patient has left lower lobe airspace disease developed hypovolemic shock started on fluid and blood resuscitation , after these patient looked liked developed possible TRALI since patient refused to any further aggressive measures since patient developed uncompensated respiratory and metabolic acidosis , according to patient wishes goals of care changed to comfort care . - Additional Data Attending physician: Shima Simpson MD Discharge Sum: Prov - Provider Primary care physician: Neftali Ortez MD Consults: 08/02/17 09:12 Consult to Neurology [CONS] Routine Consulting Provider: [facility] Reason for Consult: SEIZURES Time Notified: 09:00 Call Completed: Yes 08/02/17 10:26 Consult to Gastroenterology [CONS] Stat Consulting Provider: Gastroenterology [place] Reason for Consult: Black stool, drop in hemoglobin Call Completed: No 08/02/17 16:20 Consult to Pulmonology [CONS] Routine Consulting Provider: Pulm [facility] Reason for Consult: dyspnea Time Notified: 16:23 Call Completed: Yes 08/03/17 10:10 Consult to Interpret Exam [CONS] Routine Consulting Provider: Zohreh Mills Consult to Interpret Exam: Interpret EEG 08/06/17 07:24 Consult to Physical Therapy [CONS] Routine Comment: Evaluate, develop and implement POC Reason for Consult: weakness 08/06/17 08:42 Consult to Occupational Therapy [CONS] Routine Comment: Evaluate, develop and implement POC Reason for Consult: discharge 08/07/17 14:38 Consult to Interventional Radiology [CONS] Routine Consulting Provider: Radiology Interventional [facility] Reason for Consult: actively bleeding duodenal ulcer; s/p 3x EGDs, hgh 6.6, platelets 70,000s, creat 2.7 (aware of possible BAND HEAD SAW OPERATOR post-procedure) Call Completed: Yes 08/07/17 18:47 Consult to Pulmonology [CONS] Stat Consulting Provider: Pulm [facility] Reason for Consult: pulmonary status Call Completed: Yes
[2017-08-07] MEDS ORDERED: Aminoglycoside Consult 1 EACH MC ONE (20:57)
--- NOTE | 2017-08-08 08:36 | Electrocardiograph Report ---
[address] [place] [address] Test Date: 2017-08-04 Pat Name: Nikolai Mcginnis Department: 109 Room: [facility] Gender: M Photo Cartographer: WILLY : 1935 Requested By: Dillon Browne Order Number: [id number] Reading MD: Beatrice Velasquez Measurements Intervals [place] Rate: 99 P: AK: 0 QRS: 7 QRSD: 130 T: 111 QT: 392 QTc: 449 Interpretive Statements ATRIAL FIBRILLATION LEFT BUNDLE BRANCH BLOCK Electronically Signed On 08-08-2017 8:34:53 EST by Beatrice Velasquez
[2017-08-08] MEDS ORDERED: Vancomycin 1 EACH in EMPTY BAG 1 EACH IVPB SCH (09:00)
--- NOTE | 2017-08-08 18:11 | Electrocardiograph Report ---
[place] [address] Test Date: 2017-08-06 Pat Name: Nikolai Mcginnis Department: 109 Room: [facility] Gender: M Artificial Glass Eye Maker: TARA : 1935 Requested By: Elpidio Farias Order Number: [id number] Reading MD: Priya Aj Measurements Intervals [place] Rate: 132 P: 79 GA: 176 QRS: 54 QRSD: 72 T: 83 QT: 270 QTc: 348 Interpretive Statements SINUS TACHYCARDIA WITH OCCASIONAL ECTOPIC PREMATURE COMPLEXES ABNORMAL RHYTHM ECG BASELINE ARTIFACT Electronically Signed On 08-08-2017 18:10:17 EST by Priya Aj
--- NOTE | 2017-08-08 20:00 | Electrocardiograph Report ---
[address] [place], [place] [address] Test Date: 2017-08-05 Pat Name: Nikolai Mcginnis Department: 112 Room: [facility] Gender: M Hadoop Admin: : 1935 Requested By: Shima Simpson Order Number: [id number] Reading MD: Priya Aj Measurements Intervals [place] Rate: 131 P: GA: 0 QRS: -4 QRSD: 129 T: 111 QT: 343 QTc: 420 Interpretive Statements ATRIAL FIBRILLATION WITH RAPID VENTRICULAR RESPONSE POSSIBLE ANTERIOR MYOCARDIAL INFARCTION, OF INDETERMINATE AGE Electronically Signed On 08-08-2017 19:59:37 EST by Priya Aj
--- NOTE | 2017-08-08 20:00 | Electrocardiograph Report ---
[address] [place] [address] Test Date: 2017-08-05 Pat Name: Nikolai Mcginnis Department: 112 Room: [facility] Gender: M Clearance Rep: : 1935 Requested By: Shima Simpson Order Number: [id number] Reading MD: Priya Aj Measurements Intervals [place] Rate: 118 P: PA: 0 QRS: 11 QRSD: 132 T: 110 QT: 362 QTc: 432 Interpretive Statements ATRIAL FIBRILLATION WITH RAPID VENTRICULAR RESPONSE INTRAVENTRICULAR CONDUCTION DELAY POSSIBLE ANTERIOR MYOCARDIAL INFARCTION, OF INDETERMINATE AGE Electronically Signed On 08-08-2017 19:59:30 EST by Priya Aj
--- NOTE | 2017-08-09 08:13 | Electrocardiograph Report ---
[address] [place] [address] Test Date: 2017-08-05 Pat Name: Nikolai Mcginnis Department: 112 Room: 09 Gender: M Proposal Consultant: : 1935 Requested By: Gamal Perea Order Number: [id number] Reading MD: Anthony Tate MD Measurements Intervals [place] Rate: 80 P: NC: 0 QRS: -7 QRSD: 90 T: 111 QT: 407 QTc: 443 Interpretive Statements SINUS RHYTHM WITH PVC AND PACS Electronically Signed On 08-09-2017 8:11:30 EST by Anthony Tate MD
== END 2017-08-07 20:58 | disposition expired | DRG 377 ==
LOC: 2SOUTHHOLD 18:46 → EMEROO 18:46 → 2SOUTHHOLD 21:34 → 2ANU 08-02 00:39 → SUATTDRO 08-02 04:53 → ICNU 08-02 14:54 → 2ANU 08-04 17:47 → ICNU 08-06 13:22
PROVIDERS: ADMIT Internal Medicine; ATTEND Hospitalist